=== PATIENT | male | born 1955 | race Caucasian/White ===

== ENCOUNTER 2022-08-26 14:27 | Observation (INO) | payer MEDICARE, SELFPAY ==
[2022-08-26] VITALS (18 sets, daily range): BP systolic 135–166; BP diastolic 91–107; PULSE 56–78; RESP 7–28; TEMP 36.5–36.9; O2SAT 87–100; BMI 28.7; BMI 29.8
--- NOTE | 2022-08-26 14:37 | XR_ITS ---
The [address] [address] Patient Name: TAMMY CORTEZ MRN: [id number] date: 1955 Sex: M Assigned Patient Location: ED.MAIN Current Patient Location: ER Accession/Order Number: [id number] Exam Date: 08/26/2022 15:05 Report Date: 08/26/2022 15:18 At the request of: MYRIAM OLSON Procedure: XR chest 1V EXAMINATION: XR chest 1V HISTORY: Altered mental status COMPARISON: 09/14/2021 TECHNIQUE: AP portable FINDINGS: LUNGS: No significant pulmonary parenchymal abnormalities. VASCULATURE: No increased pulmonary vasculature. PLEURA: No pneumothorax, effusion, or pleural thickening. CARDIAC: No cardiomegaly or cardiac silhouette abnormality. MEDIASTINUM: No visible mass or adenopathy. BONES: No fracture or visible bone lesion. OTHER: Negative. IMPRESSION: No acute cardiopulmonary process Electronically authenticated by: MIKALA PALACIOS Date: 08/26/2022 15:18
--- NOTE | 2022-08-26 14:37 | ECG_ITS ---
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
--- NOTE | 2022-08-26 14:37 | CT_ITS ---
The [address] [address] Patient Name: TAMMY CORTEZ MRN: [id number] date: 1955 Sex: M Assigned Patient Location: ER Current Patient Location: ER Accession/Order Number: [id number] Exam Date: 08/26/2022 14:40 Report Date: 08/26/2022 15:14 At the request of: MYRIAM OLSON Procedure: CT stroke head/brain wo con EXAM: CT stroke head/brain wo con HISTORY: Altered mental status COMPARISON: 09/14/2021 TECHNIQUE: Axial CT scans through the head were obtained without IV contrast administration. Dose reduction techniques were achieved by using: automated exposure control and/or adjustment of mA and /or kV according to patient size and/or use of iterative reconstruction technique. FINDINGS: There is no evidence of acute intracranial hemorrhage or abnormal extra-axial fluid collection. No mass effect or midline shift is seen. There is no evidence of large acute territorial infarction. There is no hydrocephalus. Moderate to severe enlargement of the ventricles and sulci, consistent with age appropriate cerebral atrophy,. Patchy areas of low-attenuation are present in supratentorial white matter, likely represents chronic microvascular ischemia, increased since 09/14/2021 To the limit of CT, the posterior fossa appears unremarkable. No definite acute fracture is identified. Soft tissues are unremarkable. The visualized orbits show no abnormal mass. The visualized paranasal sinuses show no air-fluid level. Mastoid air cells are clear. IMPRESSION: No CT evidence of acute intracranial abnormality. If there is sufficient clinical concern for acute brain parenchymal pathology, consider MRI for further evaluation. Chronic microvascular ischemia and involutional changes, mildly increased since 09/04/2021. Electronically authenticated by: YASMANY AKHTAR Date: 08/26/2022 15:14
--- NOTE | 2022-08-26 14:39 | CT_ITS ---
[address] [address] Patient Name: TAMMY CORTEZ MRN: [id number] date: 1955 Sex: M Assigned Patient Location: ER Current Patient Location: Accession/Order Number: [id number] Exam Date: 08/26/2022 14:45 Report Date: 08/26/2022 15:27 At the request of: MYRIAM OLSON Procedure: CT angio neck EXAMINATION: CT angio head, CT angio neck; [id number], [id number] COMPARISON: None. CLINICAL STATEMENT: CVA TECHNIQUE: Helical CT images of the head and neck were obtained after the administration of IV contrast. Multiplanar reformats and maximum intensity projection images were generated at the scanner. 3-D imaging was performed. Dose reduction technique used: Automated exposure control and/or adjustment of the mA and/or kV according to patient size and/or use of iterative reconstruction technique. Findings: CTA of the neck: Aortic arch: Conventional arch anatomy. No significant stenosis of the brachiocephalic artery, right or left subclavian arteries. Right common carotid artery: No significant stenosis. Right internal carotid artery: No significant plaque. No hemodynamically significant stenosis, with degree of narrowing in the <50% range. Left common carotid artery: The proximal aspect of the left common carotid artery is obscured by contrast related streak artifact. No significant stenosis in the visualized portions of the artery. Left internal carotid artery: No significant plaque. No hemodynamically significant stenosis, with degree of narrowing in the <50% range. Vertebral arteries: No hemodynamically significant stenosis. * Note: Measurements of stenoses were done in accordance with NASCET criteria. That is, the stenosis is calculated from the ratio of the linear luminal diameter of the narrowest segment of the diseased portion of the artery compared to the diameter of the artery beyond or distal to any post stenotic dilatation. CTA of the head ([place], COW): Right anterior circulation: Hypoplastic right A1 segment. Conventional branching anatomy into the anterior and middle cerebral arteries. No significant stenosis. No aneurysm. Left anterior circulation: Normal course and caliber of the right intracranial internal carotid artery. Conventional branching anatomy into the anterior and middle cerebral arteries. No significant stenosis. No aneurysm. Anterior communicating artery: Present. No aneurysm. Posterior communicating arteries: Bilateral origin to the posterior cerebral arteries. Posterior circulation: No significant stenosis. No aneurysm. Soft tissues of the neck: No acute abnormality. Mild mucosal thickening of bilateral maxillary sinuses. Visualized lung apices: Clear. Osseous: No acute findings. Impression: 1. No large vessel occlusion. 2. No significant stenosis of the cervical carotid or vertebral arteries. Electronically authenticated by: LILLIAM FINN Date: 08/26/2022 15:27
--- NOTE | 2022-08-26 14:39 | CT_ITS ---
[address] [address] Patient Name: TAMMY CORTEZ MRN: [id number] date: 1955 Sex: M Assigned Patient Location: ED.MAIN Current Patient Location: Accession/Order Number: [id number] Exam Date: 08/26/2022 14:45 Report Date: 08/26/2022 15:27 At the request of: MYRIAM OLSON Procedure: CT angio head EXAMINATION: CT angio head, CT angio neck; [id number], [id number] COMPARISON: None. CLINICAL STATEMENT: CVA TECHNIQUE: Helical CT images of the head and neck were obtained after the administration of IV contrast. Multiplanar reformats and maximum intensity projection images were generated at the scanner. 3-D imaging was performed. Dose reduction technique used: Automated exposure control and/or adjustment of the mA and/or kV according to patient size and/or use of iterative reconstruction technique. Findings: CTA of the neck: Aortic arch: Conventional arch anatomy. No significant stenosis of the brachiocephalic artery, right or left subclavian arteries. Right common carotid artery: No significant stenosis. Right internal carotid artery: No significant plaque. No hemodynamically significant stenosis, with degree of narrowing in the <50% range. Left common carotid artery: The proximal aspect of the left common carotid artery is obscured by contrast related streak artifact. No significant stenosis in the visualized portions of the artery. Left internal carotid artery: No significant plaque. No hemodynamically significant stenosis, with degree of narrowing in the <50% range. Vertebral arteries: No hemodynamically significant stenosis. * Note: Measurements of stenoses were done in accordance with NASCET criteria. That is, the stenosis is calculated from the ratio of the linear luminal diameter of the narrowest segment of the diseased portion of the artery compared to the diameter of the artery beyond or distal to any post stenotic dilatation. CTA of the head ([place], COW): Right anterior circulation: Hypoplastic right A1 segment. Conventional branching anatomy into the anterior and middle cerebral arteries. No significant stenosis. No aneurysm. Left anterior circulation: Normal course and caliber of the right intracranial internal carotid artery. Conventional branching anatomy into the anterior and middle cerebral arteries. No significant stenosis. No aneurysm. Anterior communicating artery: Present. No aneurysm. Posterior communicating arteries: Bilateral origin to the posterior cerebral arteries. Posterior circulation: No significant stenosis. No aneurysm. Soft tissues of the neck: No acute abnormality. Mild mucosal thickening of bilateral maxillary sinuses. Visualized lung apices: Clear. Osseous: No acute findings. Impression: 1. No large vessel occlusion. 2. No significant stenosis of the cervical carotid or vertebral arteries. Electronically authenticated by: LILLIAM FINN Date: 08/26/2022 15:27
--- NOTE | 2022-08-26 14:40 | ED.AMS1 ---
HPI - Altered Mental Status General Chief Complaint: Altered Mental Status Stated Complaint: GENERAL WEAKNESS/ SHORTNESS OF BREATH Time Seen by Provider: 08/26/22 14:37 Source: patient and family Mode of arrival: Wheelchair Limitations: altered mental status Limitations comment: history of dementia History of Present Illness HPI narrative: patient is a 67-year-old male with a history of Alzheimer's who presents to the emergency department with his for the evaluation of possible stroke. Immediately prior to arrival, within the last thirty minutes, the patient was waiting in a [employer] for a haircut when he reported to his that his tongue felt funny . Patient's states that she does believe the left corner of his mouth appears asymmetric. He was complaining of some discomfort to the left arm. On arrival to the emergency department, patient is alert and oriented to person only. Patient's states that he has been more confused in the last two days. He had no falls or injuries. When asked if he has pain, patient states that he does have pain in the legs, chest and he does not know if he has a headache. He has had no recent upper respiratory illness. He is on no blood thinners. Related Data Home Medications Medication Instructions Recorded Confirmed benazepril 5 mg tablet 5 mg PO DAILY 08/26/22 08/26/22 donepezil 10 mg tablet 10 mg PO DAILY 08/26/22 08/26/22 escitalopram oxalate 20 mg tablet 20 mg PO .QHS 08/26/22 08/26/22 folic acid 1 mg tablet 1 mg PO DAILY 08/26/22 08/26/22 memantine 10 mg tablet 10 mg PO BID 08/26/22 08/26/22 omeprazole 40 mg capsule,delayed 40 mg PO DAILY 08/26/22 08/26/22 release trospium 20 mg tablet 20 mg PO BID 08/26/22 08/26/22 Allergies Allergy/AdvReac Type Severity Reaction Status Date / Time No Known Drug Allergies Allergy Verified 08/26/22 14:32 Review of Systems ROS Constitutional Denies: fever or chills Ears, nose, mouth, and throat Denies: throat pain or neck pain Cardiovascular Reports: chest pain Respiratory Denies: shortness of breath or cough Gastrointestinal Denies: nausea or vomiting Genitourinary Denies: painful urination Musculoskeletal Denies: back pain Integumentary/Breast Denies: rash Neurological Reports: numbness in extremities; Denies: slurred speech Exam Narrative Exam Narrative: Gen.: Awake, alert, in no distress Head: Normocephalic, atraumatic ENT: Moist mucous membranes Respiratory: No respiratory distress, lungs clear bilaterally Cardio: Regular rate and rhythm Extremities: Moves extremities equally, no injuries noted Psych: Normal mood and affect Neuro: patient is alert and oriented to person only, left corner of the mouth is asymmetric and drooping, no significant dysarthria noted. No unilateral weakness noted. Skin: Warm, dry, intact Constitutional Vital Signs - 24 hr 08/26/22 14:32 08/26/22 14:33 08/26/22 14:33 Temperature 98.5 F Pulse Rate Pulse Rate [Monitor] 72 Respiratory Rate 28 H Blood Pressure 135/94 H Blood Pressure [Right Arm] 135/94 H Pulse Oximetry 99 87 L Oxygen Delivery Method Room Air 08/26/22 15:00 08/26/22 15:01 08/26/22 15:01 Temperature Pulse Rate 60 62 59 L Pulse Rate [Monitor] Respiratory Rate 7 L 18 21 Blood Pressure 158/98 H Blood Pressure [Right Arm] Pulse Oximetry 91 L 99 Oxygen Delivery Method 08/26/22 15:01 08/26/22 15:15 08/26/22 15:30 Temperature Pulse Rate 56 L 57 L 58 L Pulse Rate [Monitor] Respiratory Rate 14 12 12 Blood Pressure 158/98 H 148/98 H 152/101 H Blood Pressure [Right Arm] Pulse Oximetry 98 99 95 Oxygen Delivery Method 08/26/22 15:45 08/26/22 16:00 08/26/22 16:15 Temperature Pulse Rate 61 71 59 L Pulse Rate [Monitor] Respiratory Rate 15 13 14 Blood Pressure 143/100 H 146/101 H 140/91 H Blood Pressure [Right Arm] Pulse Oximetry 94 L 98 Oxygen Delivery Method 08/26/22 16:30 08/26/22 16:45 08/26/22 17:00 Temperature Pulse Rate 78 58 L 59 L Pulse Rate [Monitor] Respiratory Rate 17 16 19 Blood Pressure 156/101 H 153/98 H 166/106 H Blood Pressure [Right Arm] Pulse Oximetry Oxygen Delivery Method 08/26/22 17:15 Temperature Pulse Rate 56 L Pulse Rate [Monitor] Respiratory Rate 10 L Blood Pressure 155/107 H Blood Pressure [Right Arm] Pulse Oximetry Oxygen Delivery Method Course Vital Signs Vital signs: Vital Signs Temperature 98.5 F 08/26/22 14:32 Pulse Rate 72 08/26/22 14:32 Respiratory Rate 28 H 08/26/22 14:32 Blood Pressure 135/94 H 08/26/22 14:32 Pulse Oximetry 99 08/26/22 14:32 Oxygen Delivery Method Room Air 08/26/22 14:32 Temperature 98.5 F 08/26/22 14:32 Pulse Rate 56 L 08/26/22 17:15 Respiratory Rate 10 L 08/26/22 17:15 Blood Pressure 155/107 H 08/26/22 17:15 Pulse Oximetry 98 08/26/22 16:00 Oxygen Delivery Method Room Air 08/26/22 14:32 MDM - Altered Mental Status MDM Narrative Medical decision making narrative: on arrival to the emergency department, patient was found to be acutely confused and only able to follow some commands. He was sent for a stroke protocol CT of the brain as well as CT angio head and neck. lab studies, urine specimen are stable. Patient was evaluated by tele-stroke cart eye doctor Pablo for [facility] neurology. At this time the patient is not a TPA candidate and does not appear to be having an acute CVA. He recommended that the patient be admitted with neurology consult for evaluation of infectious versus metabolic reasons for altered mental status. Patient is resting much more comfortably on reevaluation, patient's and son are at bedside and they're in agreement with treatment plan for observation admission. Stable at this time, patient was accepted by Dr. Cannon for admission. Medical Records Attestation: I reviewed the patient's medical records. Lab Data Attestation: I reviewed the patient's lab results. Labs: Lab Results 08/26/22 08/26/22 Range/Units 14:45 17:05 WBC 5.7 (4.0-11.0) 10^3/uL RBC 4.97 (4.70-6.10) 10^6/uL Hgb 13.9 L (14.0-18.0) g/dL Hct 41.5 L (42.0-54.0) % MCV 83.5 (80.0-94.0) fL MCH 28.0 (25.9-34.0) pg MCHC 33.5 (29.9-35.2) g/dL RDW 13.4 (11.0-15.0) % Plt Count 241 (150-450) 10^3/uL MPV 8.4 L (9.5-13.5) fL Neut % (Auto) 67.6 (43.0-75.0) % Lymph % (Auto) 20.0 L (20.5-60.0) % Simpson % (Auto) 9.7 (1.7-12.0) % Eos % (Auto) 1.2 (0.9-7.0) % Baso % (Auto) 1.1 (0.2-2.0) % Neut # (Auto) 3.8 (1.4-6.5) 10^3/uL Lymph # (Auto) 1.1 L (1.2-3.8) 10^3/uL Simpson # (Auto) 0.6 (0.3-0.8) 10^3/uL Eos # (Auto) 0.1 (0.0-0.7) 10^3/uL Baso # (Auto) 0.1 (0.0-0.1) 10^3/uL Abs Immat Gran (auto) 0.02 (0.00-0.03) 10^3/uL Imm/Tot Granulo (auto) 0.4 (0.0-0.5) % PT 10.7 (9.0-11.6) sec INR 1.01 Sodium 134 L (136-145) mmol/L Potassium 3.8 (3.5-5.1) mmol/L Chloride 99 (98-107) mmol/L Carbon Dioxide 26.6 (21.0-32.0) mmol/L Anion Gap 12.2 BUN 16.0 (7.0-18.0) mg/dL Creatinine 1.16 (0.70-1.30) mg/dL Est GFR ( Amer) >60 (>=60) Est GFR (Non-Af Amer) >60 (>=60) BUN/Creatinine Ratio 13.8 Glucose 114 H (74-106) mg/dL Lactate 1.9 (0.4-2.0) mmol/L Calcium 8.8 (8.5-10.1) mg/dL Total Bilirubin 0.5 (0.2-1.0) mg/dL AST 19 (15-37) U/L ALT 24 (16-63) U/L Alkaline Phosphatase 96 (46-116) U/L Ammonia 14 (11-32) umol/L Troponin I High Sens <4.0 L (4.0-76.1) pg/mL Total Protein 7.2 (6.4-8.2) g/dL Albumin 3.8 (3.4-5.0) g/dL Globulin 3.4 g/dL Albumin/Globulin Ratio 1.1 TSH 1.581 (0.358-3.740) uIU/mL Urine Color Yellow (YELLOW) Urine Clarity Clear (CLEAR) Urine pH 7.0 (5.0-9.0) Ur Specific [place] <=1.005 A (1.005-1.025) Urine Protein Trace (NEG/TRACE) mg/dL Urine Glucose (UA) Negative (NEGATIVE) mg/dL Urine Ketones Negative (NEGATIVE) mg/dL Urine Occult Blood Negative (NEGATIVE) Urine Nitrite Negative (NEGATIVE) Urine Bilirubin Negative (NEGATIVE) Urine Urobilinogen 1.0 (0.2-1.0) EU/dL Ur Leukocyte Esterase Negative (NEGATIVE) Imaging Data Chest x-ray: Attestation: I have reviewed the pertinent imaging results. CT scan - head: Attestation: I have reviewed the pertinent imaging results. CT angio head/neck: Attestation: I have reviewed the pertinent imaging results. ECG Data Attestation: I personally reviewed and interpreted this ECG as follows: (sinus bradycardia at a rate of forty-eight, second-degree block with no acute ST elevation or ectopy. EKG reviewed by attending physician) ECG interpretation date: 08/26/22 ECG interpretation time: 17:28 Discharge Plan Discharge Chief Complaint: Altered Mental Status Clinical Impression: Dementia, Altered mental status Patient Disposition: Admitted as Observation Time of Disposition Decision: 17:37 Condition: Good Prescriptions / Home Meds: No Action benazepril 5 mg tablet 5 mg PO DAILY donepezil 10 mg tablet 10 mg PO DAILY escitalopram oxalate 20 mg tablet 20 mg PO .QHS folic acid 1 mg tablet 1 mg PO DAILY memantine 10 mg tablet 10 mg PO BID omeprazole 40 mg capsule,delayed release(DR/EC) 40 mg PO DAILY trospium 20 mg tablet 20 mg PO BID Stand Alone Forms: Portal Instructions Referrals: Mike Moreno DO [Primary Care Provider] - 1 week
[2022-08-26 15:01] LABS: Basophils Absolute Auto 0.1 10^3/uL (0.0-0.1); Basophils Percent Auto 1.1 % (0.2-2.0); Eosinophils Absolute Auto 0.1 10^3/uL (0.0-0.7); Eosinophils Percent Auto 1.2 % (0.9-7.0); Hematocrit 41.5 % (42.0-54.0); Hemoglobin 13.9 g/dL (14.0-18.0); Immature Granulocytes Abs Auto 0.02 10^3/uL (0.00-0.03); Immature Granulocytes Pct Auto 0.4 % (0.0-0.5); Lymphocytes Absolute Auto 1.1 10^3/uL (1.2-3.8); Mean Corpuscular HGB Conc 33.5 g/dL (29.9-35.2); Mean Corpuscular Volume 83.5 fL (80.0-94.0); Mean Platelet Volume 8.4 fL (9.5-13.5); Monocytes Absolute Auto 0.6 10^3/uL (0.3-0.8); Monocytes Percent Auto 9.7 % (1.7-12.0); Neutrophils Absolute Auto 3.8 10^3/uL (1.4-6.5); Neutrophils Percent Auto 67.6 % (43.0-75.0); Platelet Count 241 10^3/uL (150-450); Red Blood Count 4.97 10^6/uL (4.70-6.10); Red Cell Distribution Width 13.4 % (11.0-15.0); White Blood Count 5.7 10^3/uL (4.0-11.0)
[2022-08-26 15:21] LABS: INR 1.01; Prothrombin Time 10.7 sec (9.0-11.6)
[2022-08-26 15:23] LABS: Ammonia 14 umol/L (11-32)
[2022-08-26 15:30] LABS: Lactate/Lactic Acid 1.9 mmol/L (0.4-2.0)
[2022-08-26 15:39] LABS: Alanine Aminotransferase 24 U/L (16-63); Albumin Globulin Ratio 1.1; Albumin Level 3.8 g/dL (3.4-5.0); Alkaline Phosphatase 96 U/L (46-116); Anion Gap 12.2; Aspartate Amino Transferase 19 U/L (15-37); BUN Creatinine Ratio 13.8; Bilirubin Total 0.5 mg/dL (0.2-1.0); Calcium 8.8 mg/dL (8.5-10.1); Carbon Dioxide 26.6 mmol/L (21.0-32.0); Chloride 99 mmol/L (98-107); Estimated GFR (African America >60 (>=60); Estimated GFR (Non-African Ame >60 (>=60); Globulin 3.4 g/dL; Glucose 114 mg/dL (74-106); Potassium 3.8 mmol/L (3.5-5.1); Sodium 134 mmol/L (136-145); Total Protein 7.2 g/dL (6.4-8.2); Troponin I High Sensitivity <4.0 pg/mL (4.0-76.1)
[2022-08-26 15:40] LABS: Thyroid Stimulating Hormone 1.581 uIU/mL (0.358-3.740)
--- NOTE | 2022-08-26 16:06 | ECG_ITS ---
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
[2022-08-26 17:10] LABS: Bilirubin Urine NEGATIVE (NEGATIVE); Blood Urine NEGATIVE (NEGATIVE); Clarity Urine CLEAR (CLEAR); Color Urine YELLOW (YELLOW); Glucose Urine UA NEGATIVE (NEGATIVE); Ketones Urine NEGATIVE (NEGATIVE); Leukocyte Esterase Urine NEGATIVE (NEGATIVE); Nitrite Urine NEGATIVE (NEGATIVE); Protein Urine TRACE mg/dL (NEG/TRACE); Specific Gravity Urine <=1.005 (1.005-1.025)
[2022-08-26 17:15] LABS: Urine Microscopic Indicated NO
[2022-08-26] MEDS: LACTATED RINGER'S SOLUTION 1,000 ML 100 ML IV (18:42)
[2022-08-26] MEDS: ENOXAPARIN SODIUM 40 MG/0.4 ML SYRINGE SUBQ (20:24)
[2022-08-26] MEDS: MEMANTINE HCL 28 MG CAP XR PO (22:37)
[2022-08-27] VITALS (11 sets, daily range): BP systolic 132–136; BP diastolic 81–86; PULSE 52–59; RESP 18; TEMP 36.6; O2SAT 94–97; BMI 29.8
[2022-08-27] MEDS: LACTATED RINGER'S SOLUTION 1,000 ML 100 ML IV (04:10)
[2022-08-27] MEDS: OMEPRAZOLE 40 MG CAPSULE.DR (05:11)
[2022-08-27] MEDS: ESCITALOPRAM 10 MG TABLET 20 MG PO (10:34)
[2022-08-27] MEDS: FOLIC ACID 1 MG TABLET PO (10:34)
[2022-08-27] MEDS: OMEPRAZOLE 40 MG CAPSULE.DR PO (10:34)
[2022-08-27] MEDS: LISINOPRIL 5 MG TABLET PO (10:34)
--- NOTE | 2022-08-27 11:26 | SWNOTE1 ---
ABNER met with pt and in room. Pt lives at home with his , she is the primary caregiver. Pt does have Alzheimer's. Pt is able to answer most questions during assessment. Pt is independent at home and does not use any DME. ABNER spoke with pt and about home health coming in for a period of time. ABNER did explain what home health services are. ABNER gave pt's medicare.gov star rating list for home health companies. She did state he is doing well walking around and she is not sure if they want home health at this time. ABNER to come back within an hour while they discuss.
--- NOTE | 2022-08-27 12:05 | CM.NOTE ---
Rounds made with Dr. Cannon, PT and OT will evaluate pt today and will follow for discharge needs.
--- NOTE | 2022-08-27 12:19 | SWNOTE1 ---
Pt and have decided they do not want HH at this time, she will reach out to PCP if needed.
--- NOTE | 2022-08-27 16:22 | P.HP_ITS ---
H&P: HPI History of Present Illness Chief complaint: Change in mental status Narrative: HPI and hospital course: 67 y o male with severe dementia was brought in by his for worsening confusion, incomprehensible speech for possible stroke vs metabolic encephalopathy. Patient told his that his tongue felt funny and thought there was facial asymmetry at that time. Patient was evaluated in ED by tele stroke and recommended evaluation for metabolic encephalopathy after negative initial stroke w/u. When I evaluated him today, in his 's presence, he appeared to be at his baseline. His w/u included CTH, CTA head/neck, UA, CXR, CBC, CMP with no sig abnormality/reversible pathology noted. He was admitted overnight for observation with return to usual baseline status on evaluation today. Admission Diagnosis Stroke like symptoms Change in mental status Dementia HTN Depression Discharge diagnosis as above Discharge status: stable D/c home with Home health evaluation. Patient to follow Neurology as outpatient Review of Systems ROS Status of ROS 10 or more systems reviewed and unremarkable except as noted in history and below [facility] History Family History Mother Family history of CHF (congestive heart failure) Father Family history of cancer Other Family history of COPD (chronic obstructive pulmonary disease) Family history of myocardial infarction Social History (Updated 08/27/22 @ 16:28 by Shaikh Davis MD) Within the past year, how often did you have a drink containing alcohol: never Score interpretation: A score less than 4 is consistent with normal alcohol consumption. Smoking status: Former smoker Non-prescribed substance use: denies use Do you think of yourself as: straight/heterosexual Gender Identity: male Meds Home Medications and Allergies Home Medications Medication Instructions Recorded Confirmed Type benazepril 5 mg tablet 5 mg PO DAILY 08/26/22 08/26/22 History donepezil 10 mg tablet 10 mg PO DAILY 08/26/22 08/26/22 History escitalopram oxalate 20 mg tablet 20 mg PO .QHS 08/26/22 08/26/22 History folic acid 1 mg tablet 1 mg PO DAILY 08/26/22 08/26/22 History memantine 10 mg tablet 10 mg PO BID 08/26/22 08/26/22 History omeprazole 40 mg capsule,delayed 40 mg PO DAILY 08/26/22 08/26/22 History release trospium 20 mg tablet 20 mg PO BID 08/26/22 08/26/22 History Allergies Allergy/AdvReac Type Severity Reaction Status Date / Time No Known Drug Allergies Allergy Verified 08/26/22 14:32 Exam Constitutional Vital Signs - 24 hr 08/26/22 16:30 08/26/22 16:45 08/26/22 17:00 Temperature Pulse Rate 78 58 L 59 L Respiratory Rate 17 16 19 Blood Pressure 156/101 H 153/98 H 166/106 H Blood Pressure [Right Arm] Pulse Oximetry Oxygen Delivery Method 08/26/22 17:15 08/26/22 18:19 08/26/22 20:00 Temperature 97.7 F Pulse Rate 56 L 58 L 62 Respiratory Rate 10 L 20 Blood Pressure 155/107 H Blood Pressure [Right Arm] 151/94 H Pulse Oximetry 98 Oxygen Delivery Method Room Air 08/26/22 20:31 08/26/22 20:38 08/26/22 22:00 Temperature 97.7 F Pulse Rate 66 Respiratory Rate 18 Blood Pressure Blood Pressure [Right Arm] 160/94 H Pulse Oximetry 96 100 Oxygen Delivery Method Room Air 08/27/22 00:00 08/27/22 02:00 08/27/22 04:00 Temperature Pulse Rate 55 L 55 L 55 L Respiratory Rate Blood Pressure Blood Pressure [Right Arm] Pulse Oximetry Oxygen Delivery Method 08/27/22 04:55 08/27/22 06:00 08/27/22 08:01 Temperature 97.9 F Pulse Rate 53 L 52 L Respiratory Rate 18 Blood Pressure Blood Pressure [Right Arm] 132/81 H Pulse Oximetry 94 L Oxygen Delivery Method Room Air 08/27/22 09:57 08/27/22 11:14 08/27/22 12:03 Temperature Pulse Rate 57 L 59 L Respiratory Rate Blood Pressure Blood Pressure [Right Arm] Pulse Oximetry 94 L Oxygen Delivery Method Room Air 08/27/22 13:52 08/27/22 14:00 Temperature 97.9 F Pulse Rate 56 L 52 L Respiratory Rate 18 Blood Pressure Blood Pressure [Right Arm] 136/86 H Pulse Oximetry 97 Oxygen Delivery Method Room Air Documenting provider has reviewed patient's vital signs: yes Common normals: no apparent distress and well nourished General appearance: cooperative and comfortable [facility] Common normals: normocephalic and head/scalp atraumatic Eye Common normals: PERRL, EOMs intact bilaterally, conjunctivae normal and no scleral icterus Respiratory Common normals: normal respiratory effort, no retractions, no use of accessory muscles and clear to auscultation bilaterally Cardio Common normals: no JVD, regular rate, regular rhythm, S1 normal heart sound, S2 normal heart sound and no murmurs GI Common normals: Normal to inspection, nondistended, normoactive bowel sounds present, soft to palpation, non-tender and no hepatosplenomegaly Extremity Common normals: normal to inspection and full ROM Neuro Common normals: moves all extremities, no focal motor deficits and no sensory deficits noted Sensorium/orientation: awake Meningeal signs: no meningeal signs Speech: abnormal speech Gait (neuro): normal gait Psych Common normals: cooperative Attitude: calm Speech: incoherent Mood and affect: euthymic mood Thought process: confused and confabulating Memory/cognition: memory grossly impaired and cognition grossly impaired Insight: poor Judgement: poor Results Labs Labs: Urine 08/26/22 Range/Units 17:05 Urine Color Yellow (YELLOW) Urine Clarity Clear (CLEAR) Urine pH 7.0 (5.0-9.0) Ur Specific [place] <=1.005 A (1.005-1.025) Urine Protein Trace (NEG/TRACE) mg/dL Urine Glucose (UA) Negative (NEGATIVE) mg/dL Assessment and Plan Assessment and Plan (1) Dementia: Assessment and Plan: Severe dementia and currently more or less dependent on his for everything. Lives at home. Follows Neurology at [facility]. on donezepil and memantine. Qualifiers: Dementia type: Alzheimer's Alzheimer's disease onset: early onset Dementia severity: severe Dementia behavioral or psychological symptom: without behavioral, psychotic, or mood disturbance or anxiety Qualified Code(s): G30.0 - Alzheimer's disease with early onset; F02.C0 - Dementia in other diseases classified elsewhere, severe, without behavioral disturbance, psychotic disturbance, mood disturbance, and anxiety (2) Altered mental status: Assessment and Plan: Possible concern for CVA- Stroke w/u included CTH, CTA head/neck with no sig abnormality noted. Tele stroke recommended evaluation for alternative explanation of his symptoms. He is back to his baseline today. no reversible metabolic/infectious etiology noted on w/u Suspect worsening dementia with periods of worsening confusion intermittently Qualifiers: Altered mental status type: disorientation Qualified Code(s): R41.0 - Disorientation, unspecified (3) GERD (gastroesophageal reflux disease): Assessment and Plan: c/w PPI (4) Hypertension: Assessment and Plan: c/w home meds
--- NOTE | 2022-09-02 10:10 | CM.DCFOLLOWU ---
Person spoke with:patient's How are you feeling? well How is your pain? no pain Did you understand your discharge instructions? yes Do you have any questions about your discharge instructions? no Were you given any prescriptions at discharge? no Were you able to get your prescriptions filled? no Do you understand how to take your medications as ordered? yes Do you have any questions about your follow up appointment and do you plan to keep your follow up appointment? no questions, follow up with Dr. Moreno tomorrow 09/03/22 Is there anything else that you would like to discuss?no Questions/Comments/Concerns/Other:
== END 2022-08-27 14:41 | disposition home or self-care (01) ==
LOC: ER 17:37 → MS 18:10
PROVIDERS: Physician Assistant; Admitting Provider Internal Medicine; Emergency Provider Emergency Medicine; PCP Internal Medicine; Visit Provider Internal Medicine
DX: R41.82 Altered mental status, unspecified (principal); G30.0 Alzheimer's disease with early onset; F02.C0 Dementia in other diseases classified elsewhere, severe, without behavioral disturbance, psychotic disturbance, mood disturbance, and anxiety; I10 Essential (primary) hypertension; F32.A Depression, unspecified; K21.9 Gastro-esophageal reflux disease without esophagitis; Z87.891 Personal history of nicotine dependence; Z79.899 Other long term (current) drug therapy; M79.605 Pain in left leg; M79.604 Pain in right leg
CPT/HCPCS: 36415; 70450; 70496; 70498; 71045; 80053; 81003; 82140; 83605; 84443; 84484; 85025; 85610; 93005; 94761; 96360; 96361; 96372; 99285; G0378; Q9967

== ENCOUNTER 2022-11-24 13:11 | Outpatient (OUT) | payer MEDICARE, SELFPAY ==
[2022-11-24 16:08] LABS: Prostate Specific Antigen Dx 0.35 ng/mL (<=4.00)
== END 2022-11-24 13:12 | disposition home or self-care (01) ==
LOC: LAB 13:11
PROVIDERS: PCP Internal Medicine; Visit Provider Urology
DX: C61 Malignant neoplasm of prostate (principal); N40.1 Benign prostatic hyperplasia with lower urinary tract symptoms
CPT/HCPCS: 36415; 84153

== ENCOUNTER 2022-12-17 11:56 | Emergency (ER) | payer MEDICARE, SELFPAY ==
[2022-12-17 12:00] VITALS: BP 145/86; PULSE 56; RESP 18; TEMP 36.7; O2SAT 98; BMI 26.9
--- NOTE | 2022-12-17 12:09 | ECG_ITS ---
The [facility] Test Date: 2022-12-17 Pat Name: TAMMY CORTEZ Department: Room: - Gender: Male [employer] Super[employer]: : 1955 Requested By: [id number] Order Number: [id number] Reading MD: BECKA FAY Measurements Intervals [place] Rate: 52 P: 19 CT: 180 QRS: -7 QRSD: 96 T: 62 QT: 464 QTc: 443 Interpretive Statements 1100 Sinus rhythm 9110 normal ECG Compared to ECG 12/17/2022 12:05:52 No significant changes Electronically Signed On 12-19-2022 16:50:03 EDT by BECKA FAY
--- NOTE | 2022-12-17 12:11 | ED_ITS ---
HPI - General Adult General Chief complaint: Neuro Symptoms/Deficit Stated complaint: dizziness/confusion/ general weakness Time Seen by Provider: 12/17/22 12:08 Source: patient Mode of arrival: Wheelchair Limitations: no limitations History of Present Illness HPI narrative: Patient is a 59-year-old male who is presenting to the Emergency Room with chief concern of a headache, slightly garbled speech and cough/difficulty breathing that was very transient at home. Patient has declining Alzheimer's disease. Patient is at a stage per history, and she states that 7 is the worse. Patient has been having steady cognitive decline secondary to Alzheimer's in the past 6 months. Patient normally has expressive aphasia at baseline for the past 6-7 months. Patient was having head throbbing at home, and headache that is concerned about. Patient is at his normal baseline at this time. He currently has no headache, no new expressive aphasia. Patient has no chest pain, shortness of breath, or no other acute stroke symptoms. Patient initially checked into triage, there was a concern for garbled speech, expressive aphasia, and stroke protocols were started initially. After CTs were performed, it was noted by that their chief concern was headache, facial pressure, and slightly garbled speech/cough for a known reason but that resolved. Patient has a outpatient MRI scheduled for 1:30 PM this afternoon dose schedule from his neurologist to reassess brain/Alzheimer's. Patient is very comfortable, hemodynamically stable, blood sugar within normal limits. . All systems are negative except as noted/marked. All systems reviewed and otherwise negative. . Nurses note and vital signs reviewed and patient is not hypoxic. General: The patient appears well and in no apparent distress. Patient is resting comfortably on cart. Patient is not toxic, lethargic, or listless Skin: Warm, dry, no pallor noted. There is no rash noted. No petechiae, purpura. Head: Normocephalic, atraumatic Eye: Normal conjunctiva, no drainage, EOMI. PERRL Ears, Nose, Mouth, and Throat: oral mucosa is moist. Nares patent. Mouth without vesicles. Cardiovascular: Regular Rate and Rhythm, no murmur, gallop, rub Respiratory: Patient is in no distress, no accessory muscle use, lungs are clear to auscultation, no wheezing, rales or rhonchi Back: non-tender, no CVA tenderness bilaterally to percussion. No CT LS midline pain GI: soft, no tenderness to palpation, no masses appreciated. No rebound, guarding, or rigidity noted. No flank pain bilateral, No distention Musculoskeletal: Patient has full range of motion of all of the extremities, no motor, sensory, or focal neurological deficits Neurological: A&O x3, normal speech; NIH 0, Patient is at his current baseline for his multiple neurological changes secondary to Alzheimer's, but no acute findings on today's neurological assessments per . Patient has normal expressive aphasia the past 6-7 months, it is not worse today. Psychiatric: Cooperative Related Data Home Medications Medication Instructions Recorded Confirmed benazepril 5 mg tablet 5 mg PO DAILY 08/26/22 12/17/22 donepezil 10 mg tablet 10 mg PO DAILY 08/26/22 12/17/22 escitalopram oxalate 20 mg tablet 20 mg PO .QHS 08/26/22 12/17/22 folic acid 1 mg tablet 1 mg PO DAILY 08/26/22 12/17/22 memantine 10 mg tablet 10 mg PO BID 08/26/22 12/17/22 omeprazole 40 mg capsule,delayed 40 mg PO DAILY 08/26/22 12/17/22 release trospium 20 mg tablet 20 mg PO BID 08/26/22 12/17/22 lorazepam 0.5 mg tablet 0.5 mg PO BID PRN agitation 12/17/22 12/17/22 Allergies Allergy/AdvReac Type Severity Reaction Status Date / Time No Known Drug Allergies Allergy Verified 12/17/22 12:17 [facility] Medical History Family History Mother Family history of CHF (congestive heart failure) Father Family history of cancer Other Family history of COPD (chronic obstructive pulmonary disease) Family history of myocardial infarction Social History (Updated 08/27/22 @ 16:28 by Shaikh Davis MD) Within the past year, how often did you have a drink containing alcohol: never Score interpretation: A score less than 4 is consistent with normal alcohol consumption. Smoking status: Former smoker Non-prescribed substance use: denies use Do you think of yourself as: straight/heterosexual Gender Identity: male Exam Constitutional Vital Signs, click to edit/add: Last Vital Signs Temp 98.1 F 12/17/22 12:00 Pulse 60 12/17/22 12:33 Resp 20 12/17/22 12:33 BP 128/84 12/17/22 12:33 Pulse Ox 98 12/17/22 12:33 O2 Del Method Room Air 12/17/22 12:33 Course Vital Signs Vital signs: Vital Signs Temperature 98.1 F 12/17/22 12:00 Pulse Rate 56 L 12/17/22 12:00 Respiratory Rate 18 12/17/22 12:00 Blood Pressure 145/86 H 12/17/22 12:00 Pulse Oximetry 98 12/17/22 12:00 Oxygen Delivery Method Room Air 12/17/22 12:00 Temperature 98.1 F 12/17/22 12:00 Pulse Rate 60 12/17/22 12:33 Respiratory Rate 20 12/17/22 12:33 Blood Pressure 128/84 12/17/22 12:33 Pulse Oximetry 98 12/17/22 12:33 Oxygen Delivery Method Room Air 12/17/22 12:33 Medical Decision Making MDM Narrative Medical decision making narrative: EKG interpretation. Normal sinus rhythm at 52 beats a minute. Left axis deviation. No acute ST elevation, no acute ectopy. QTC of 443. Patient was given IV fluids, patient seen more perky and responsive per . Patient is able to have his MRI of the brain is ordered as an outpatient at 1:30 today. No acute findings and patient CT or lab work. Patient will follow-up with PCP. Son and are at bedside at this physician. They feel very comfortable taking patient home and having him performs outpatient MRI. Everybody appears to be very realistic unfortunately at the declined the patient is occurring with his Alzheimer's, no acute concerns today otherwise. Lab Data Lab results reviewed: Yes I reviewed the patient's lab results Labs: Lab Results 12/17/22 12/17/22 Range/Units 12:25 12:31 WBC 4.4 (4.0-11.0) 10^3/uL RBC 4.97 (4.70-6.10) 10^6/uL Hgb 14.2 (14.0-18.0) g/dL Hct 42.2 (42.0-54.0) % MCV 84.9 (80.0-94.0) fL MCH 28.6 (25.9-34.0) pg MCHC 33.6 (29.9-35.2) g/dL RDW 13.2 (11.0-15.0) % Plt Count 205 (150-450) 10^3/uL MPV 8.3 L (9.5-13.5) fL Neut % (Auto) 74.1 (43.0-75.0) % Lymph % (Auto) 15.7 L (20.5-60.0) % [place] % (Auto) 7.5 (1.7-12.0) % Eos % (Auto) 1.4 (0.9-7.0) % Baso % (Auto) 1.1 (0.2-2.0) % Neut # (Auto) 3.3 (1.4-6.5) 10^3/uL Lymph # (Auto) 0.7 L (1.2-3.8) 10^3/uL [place] # (Auto) 0.3 (0.3-0.8) 10^3/uL Eos # (Auto) 0.1 (0.0-0.7) 10^3/uL Baso # (Auto) 0.1 (0.0-0.1) 10^3/uL Abs Immat Gran (auto) 0.01 (0.00-0.03) 10^3/uL Imm/Tot Granulo (auto) 0.2 (0.0-0.5) % PT 10.9 (9.0-11.6) sec INR 1.03 APTT 32.2 (22.3-36.2) sec Sodium 133 L (136-145) mmol/L Potassium 4.0 (3.5-5.1) mmol/L Chloride 98 (98-107) mmol/L Carbon Dioxide 28.9 (21.0-32.0) mmol/L Anion Gap 10.1 BUN 11.0 (7.0-18.0) mg/dL Creatinine 1.00 (0.70-1.30) mg/dL Est GFR ( Amer) >60 (>=60) Est GFR (Non-Af Amer) >60 (>=60) BUN/Creatinine Ratio 11.0 Glucose 85 (74-106) mg/dL Calcium 8.7 (8.5-10.1) mg/dL Total Bilirubin 0.7 (0.2-1.0) mg/dL AST 16 (15-37) U/L ALT 21 (16-63) U/L Alkaline Phosphatase 74 (46-116) U/L Troponin I High Sens 6.5 (4.0-76.1) pg/mL Total Protein 7.0 (6.4-8.2) g/dL Albumin 3.7 (3.4-5.0) g/dL Globulin 3.3 g/dL Albumin/Globulin Ratio 1.1 POC Glucose 83 (74-106) mg/dL ECG Data Attestation: I personally reviewed and interpreted this ECG as follows: Discharge Plan Discharge Chief Complaint: Neuro Symptoms/Deficit Clinical Impression: Dyspnea, Headache Patient Disposition: Home, Self-Care Prescriptions / Home Meds: No Action benazepril 5 mg tablet 5 mg PO DAILY donepezil 10 mg tablet 10 mg PO DAILY escitalopram oxalate 20 mg tablet 20 mg PO .QHS folic acid 1 mg tablet 1 mg PO DAILY memantine 10 mg tablet 10 mg PO BID omeprazole 40 mg capsule,delayed release(DR/EC) 40 mg PO DAILY trospium 20 mg tablet 20 mg PO BID lorazepam 0.5 mg tablet 0.5 mg PO BID PRN (Reason: agitation) Instructions: Dyspnea (ED), General Headache (ED) Additional Instructions: Increase fluids at home. You may have your MRI today as scheduled. Continue to follow-up with neurologist and also your Alzheimer's. Stand Alone Forms: Portal Instructions Referrals: Mike Moreno DO [Primary Care Provider] - 1 week Discharge Date/Time: 12/17/22 13:40
--- NOTE | 2022-12-17 12:20 | CT_ITS ---
[address] [address] Patient Name: TAMMY CORTEZ MRN: [id number] date: 1955 Sex: M Assigned Patient Location: ER Current Patient Location: ED.MAIN Accession/Order Number: [id number] Exam Date: 12/17/2022 12:10 Report Date: 12/17/2022 12:30 At the request of: TOMMY RAIN Procedure: CT stroke head/brain wo con CT stroke head/brain wo con, 12/17/2022 12:10 PM EDT INDICATION: CVA symptoms COMPARISON: Noncontrast CT of the head 08/26/2022 TECHNIQUE: Axial CT images of the brain from skull base to vertex, including portions of the face and sinuses, were obtained without contrast. Multiplanar reformatted images were generated and reviewed as needed. FINDINGS: Global cortical atrophy with ventricular prominence. Periventricular and deep white matter hypoattenuation. King-white matter differentiation is preserved. No extra-axial collection. No intracranial mass, hydrocephalus, midline shift or acute hemorrhage. The paranasal sinuses and mastoid air cells are clear. Orbits are within normal limits. No acute skull fracture. CT/CT stroke head/brain wo con IMPRESSION: No acute intracranial abnormality. Electronically authenticated by: JENNIFER CANTRELL Date: 12/17/2022 12:30
--- NOTE | 2022-12-17 12:20 | XR_ITS ---
The [address] [address] Patient Name: TAMMY CORTEZ MRN: [id number] date: 1955 Sex: M Assigned Patient Location: MRI Current Patient Location: ER Accession/Order Number: [id number] Exam Date: 12/17/2022 12:10 Report Date: 12/17/2022 12:36 At the request of: TOMMY RAIN Procedure: XR chest 1V EXAM: XR chest 1V at 1216 hours HISTORY: cva , confusion. COMPARISON: 08/26/2022 TECHNIQUE: AP upright portable chest x-ray FINDINGS: The heart is not enlarged and the vasculature is not distended. No acute infiltrate, effusion or pneumothorax is identified. Slight scoliosis spine is noted. XR/XR chest 1V IMPRESSION: No acute infiltrate or evidence of cardiac decompensation. The overall appearance of the chest is essentially unchanged. Electronically authenticated by: RALEIGH VALIENTE Date: 12/17/2022 12:36
[2022-12-17 12:33] VITALS: BP 128/84; PULSE 60; RESP 20; O2SAT 98
[2022-12-17 12:36] LABS: Basophils Absolute Auto 0.1 10^3/uL (0.0-0.1); Basophils Percent Auto 1.1 % (0.2-2.0); Eosinophils Absolute Auto 0.1 10^3/uL (0.0-0.7); Eosinophils Percent Auto 1.4 % (0.9-7.0); Hematocrit 42.2 % (42.0-54.0); Hemoglobin 14.2 g/dL (14.0-18.0); Immature Granulocytes Abs Auto 0.01 10^3/uL (0.00-0.03); Immature Granulocytes Pct Auto 0.2 % (0.0-0.5); Lymphocytes Absolute Auto 0.7 10^3/uL (1.2-3.8); Lymphocytes Percent Auto 15.7 % (20.5-60.0); Mean Corpuscular HGB Conc 33.6 g/dL (29.9-35.2); Mean Corpuscular Hemoglobin 28.6 pg (25.9-34.0); Mean Corpuscular Volume 84.9 fL (80.0-94.0); Mean Platelet Volume 8.3 fL (9.5-13.5); Monocytes Absolute Auto 0.3 10^3/uL (0.3-0.8); Monocytes Percent Auto 7.5 % (1.7-12.0); Neutrophils Absolute Auto 3.3 10^3/uL (1.4-6.5); Neutrophils Percent Auto 74.1 % (43.0-75.0); Platelet Count 205 10^3/uL (150-450); Red Blood Count 4.97 10^6/uL (4.70-6.10); Red Cell Distribution Width 13.2 % (11.0-15.0); White Blood Count 4.4 10^3/uL (4.0-11.0)
[2022-12-17 12:38] LABS: Glucometer 83 mg/dL (74-106)
[2022-12-17] MEDS: 0.9 % SODIUM CHLORIDE 1,000 ML 1000 ML IV (12:47)
[2022-12-17 12:53] LABS: INR 1.03; Partial Thromboplastin Time 32.2 sec (22.3-36.2); Prothrombin Time 10.9 sec (9.0-11.6)
[2022-12-17 12:55] LABS: Alanine Aminotransferase 21 U/L (16-63); Albumin Globulin Ratio 1.1; Albumin Level 3.7 g/dL (3.4-5.0); Alkaline Phosphatase 74 U/L (46-116); Anion Gap 10.1; Aspartate Amino Transferase 16 U/L (15-37); Bilirubin Total 0.7 mg/dL (0.2-1.0); Calcium 8.7 mg/dL (8.5-10.1); Carbon Dioxide 28.9 mmol/L (21.0-32.0); Chloride 98 mmol/L (98-107); Estimated GFR (African America >60 (>=60); Estimated GFR (Non-African Ame >60 (>=60); Globulin 3.3 g/dL; Glucose 85 mg/dL (74-106); Sodium 133 mmol/L (136-145); Troponin I High Sensitivity 6.5 pg/mL (4.0-76.1)
== END 2022-12-17 13:40 | disposition home or self-care (01) ==
PROVIDERS: Emergency Provider Emergency Medicine; PCP Internal Medicine
DX: R51.9 Headache, unspecified (principal); R06.00 Dyspnea, unspecified; G45.9 Transient cerebral ischemic attack, unspecified; G30.9 Alzheimer's disease, unspecified; F02.80 Dementia in other diseases classified elsewhere, unspecified severity, without behavioral disturbance, psychotic disturbance, mood disturbance, and anxiety; Z79.899 Other long term (current) drug therapy; Z87.891 Personal history of nicotine dependence
CPT/HCPCS: 36415; 70450; 70551; 71045; 80053; 84484; 85025; 85610; 85730; 93005; 99285

== ENCOUNTER 2022-12-17 13:47 | Outpatient (OUT) | payer MEDICARE, SELFPAY ==
--- NOTE | 2022-12-17 | MR_ITS ---
[address] [address] Patient Name: TAMMY CORTEZ MRN: [facility]:[id number] date: 1955 Sex: M Assigned Patient Location: MRI Current Patient Location: MRI Accession/Order Number: [id number] Exam Date: 12/17/2022 14:00 Report Date: 12/17/2022 16:24 At the request of: NON-STAFF PHYSICIAN Procedure: MR head/brain wo con EXAM: MR head/brain wo con HISTORY: transient cerebral ischemia G45.9 COMPARISON: CT brain 12/17/2022, 08/26/2022 TECHNIQUE: MRI of the brain was performed without contrast. FINDINGS: There is no restricted diffusion to suggest acute infarct. There is no midline shift, mass effect, or abnormal extraaxial fluid collections. Enlarged cortical sulci and ventricular system, consistent with global cerebral atrophy. There are confluent T2/FLAIR signal abnormality in the posterior periventricular white matter, likely reflect chronic microvascular ischemic changes. The major intracranial flow voids are visualized. The cerebellar tonsils are normal in position. The orbits are unremarkable. The paranasal sinuses are essentially clear. The mastoid air cells are clear. MR/MR head/brain wo con IMPRESSION: No acute intracranial abnormality. Diffuse cerebral atrophy. Mild chronic microvascular ischemia. Electronically authenticated by: YASMANY AKHTAR Date: 12/17/2022 16:24
== END 2022-12-17 13:48 | disposition home or self-care (01) ==
LOC: MRI 13:47
PROVIDERS: PCP Internal Medicine
DX: G45.9 Transient cerebral ischemic attack, unspecified (principal)
CPT/HCPCS: 70551

== ENCOUNTER 2023-02-07 11:18 | Outpatient (OUT) | payer MEDICARE, SELFPAY ==
[2023-02-07 13:19] LABS: Prostate Specific Antigen Dx 0.22 ng/mL (<=4.00)
== END 2023-02-07 11:19 | disposition home or self-care (01) ==
LOC: LAB 11:19
PROVIDERS: PCP Internal Medicine; Visit Provider Radiology Radiation Oncology
DX: C61 Malignant neoplasm of prostate (principal)
CPT/HCPCS: 36415; 84153

== ENCOUNTER 2023-04-02 06:50 | Emergency (ER) | payer MEDICARE, SELFPAY ==
[2023-04-02] VITALS (31 sets, daily range): BP systolic 132–170; BP diastolic 79–96; PULSE 51–76; RESP 10–28; TEMP 36.4; O2SAT 85–100; BMI 25.8
--- OUTSIDE RECORDS SUMMARY | 2023-04-02 06:56 | XMS_ITS | CCD ---
Author Name Unknown Address [address] [place] [address] Organization [facility] Care Team Providers Care Skoog Operator Name Role Phone MIKE FAY Primary Care Physician [phone] Nya BRAUN, Mike Draper Primary Care Provider Mike Fay DO Primary Care Provider Nya DOMike Primary Care Provider Mike Fay RODRÍGUEZ ., DR FUNEZ Admitting Unavailable RODRÍGUEZ ., DR FUNEZ Consulting Unavailable RODRÍGUEZ ., DR FUNEZ Attending Unavailable BALL, DR JOVEL Primary Care Unavailable GRILLIS ., DR BRIELLE Draper Admitting Unavaila ble BALL, DR JOVEL Primary Care Unavailable GRILLIS ., DR BRIELLE Draper Consulting Unavaila ble GRILLIS ., DR BRIELLE Draper Attending Unavaila ble ELIZABETH II, DANE Consulting Unavailable FILUTZEBRENDENROBERT Consulting Unavailable RODRÍGUEZ ., DR FUNEZ Admitting Unavailable RODRÍGUEZ ., DR FUNEZ Consulting Unavailable RODRÍGUEZ ., DR FUNEZ Attending Unavailable BALL, DR JOVEL Primary Care Unavailable NYA, DR JOVEL Consulting Unavailable NYA, DR JOVEL Attending Unavailable NYA, DR JOVEL Admitting Unavailable NYA, DR JOVEL Primary Care Unavailable ENGELEJune, DR TRINA Nolan Attending Unavailable MARTHA, DR TRINA Nolan Admitting Unavailable NYA, DR JOVEL Primary Care Unavailable MARTHA, DR TRINA Nolan Consulting Unavailable MARTHA, DR TRINA Nolan Consulting Unavailable MARTHA, DR TRINA Nolan Attending Unavailable MARTHA, DR TRINA Nolan Admitting Unavailable NYA, DR JOVEL Primary Care Unavailable PAY ., DR SANDERS Attending Unavailable PAY ., DR SANDERS Admitting Unavailable ZIEBER, DR JOSÉ Watkins Consulting Unavailable NYA, DR JOVEL Primary Care Unavailable PAY ., DR SANDERS Consulting Unavailable LUCIANA, KEVIN Consulting Unavailable Joann THOMAS Attending Unavailable Joann THOMAS Referring Unavailable MIKE FAY Primary Care Unavailable COBY HECTOREW Attending Unavailable WILLA, JUDIT Referring Unavailable MIKE FAY Primary Care Unavailable NikitaZACK, JUDIT Attending Unavailable WILLA, JUDIT Referring Unavailable MIKE FAY Primary Care Unavailable ANIKETJAYLENEAshlyn, JUDIT Attending Unavailable ANIKETALEX, JUDIT Referring Unavailable MIKE FAY Primary Care Unavailable Armin RODRÍGUEZ Attending Unavailable Armin RODRÍGUEZ Attending Unavailable Armin RODRÍGUEZ Attending Unavailable Armin RODRÍGUEZ Attending Unavailable Allergies Allergy Classification Reported Allergen(s) Allergy Type Date of Onset Reaction(s) Facility (1 source) Seasonal allergy; Translations: [SEASONAL ALLERGIES] Propensity to adverse reactions (disorder) 7 [facility] Repository Medications Current Medications Medication Drug Class(es) Dates Sig (Normalized) Sig (Original) Aspir 81 (5 sources) Start: 12-24-2019 take 1 mg by mouth once daily Aspir 81 mg, Oral, Daily, Refills(s) 0 Start Date: 12/24/19 Status: Ordered Lomotil (5 sources) Anticholinergic, Cholinergic Muscarinic Antagonist, Antidiarrheal Start: 06-13-2020 Lomotil Oral, QID, Refill(s) 0 Start Date: 06/13/20 Status: Ordered benazepril hydrochloride 5 mg oral tablet (20 sources) Angiotensin Converting Enzyme Inhibitor Start: 12-24-2019 take 1 mg by mouth once daily benazepril 5 mg oral tablet mg tab(s), Oral, Daily, Refills(s) 0 Start Date: 12/24/19 Status: Ordered Comment on above: Take 5 mg by mouth o nce daily. donepezil hydrochloride 10 mg oral tablet (20 sources) Start: 12-24-2019 End: 06-17-2022 take 1 mg by mouth once daily at bedtime donepezil 10 mg Tab mg tab(s), Oral, Once a day (at bedtime), Refills(s) 0 Start Date: 12/24/19 Status: Ordered Comment on above: TAKE 1 TABLET BY DEYSI TH EVERY DAY Take 1 tablet by deysi th once daily. folic acid 1 mg oral tablet (17 sources) Start: 04-20-2022 folic acid 1 mg Tab Refills(s) 0 Start Date: 05/24/22 Status: Ordered Comment on above: Take 1 mg by mouth o nce daily. iv contrast (will be provided with radiology test) (7 sources) Start: 04-21-2022 End: 04-22-2022 inject 1 dose intravenously once iv contrast (will be provided with radiology test) Indications: Visual field defect MRI Brain Inject, intravenously, once for 1 dose.No IV access, insert saline lock prior to beginning of sedation, infusion, injection of imaging exam.Discontinue saline lock post exam. If Pt. has a central line or IVAD, may access for administration according to line specific nursing protocol.Once exam is complete flush line and de-access according to line specific nursing protocol in the MR contrast administration guidelines link 1 Each 0 04/21/2022 04/22/2022 Active Start: 01-17-2020 End: 04-21-2022 iv contrast (will be provide d with radiology test) MRI Pelvis Inject, intravenously, once for 1 dose. No IV access, insert saline lock prior to the beginning of sedation, infusion, injection of imaging exam. Discontinue saline lock post exam. If Pt has a central line or IVAD, may access for administration according to line specific nursing protocol. Once exam is complete flush line and de-access according to line specific nursing protocol in the MR contrast administration guidelines link. 1 Each 0 01/17/2020 04/21/2022 Discontinued (Discontinued by Patient) Start: 01-17-2020 iv contrast (w ill be provided with radiology test) MRI Pelvis Inject, intravenously, once for 1 dose. No IV access, insert saline lock prior to the beginning of sedation, infusion, injection of imaging exam. Discontinue saline lock post exam. If Pt has a central line or IVAD, may access for administration according to line specific nursing protocol. Once exam is complete flush line and de-access according to line specific nursing protocol in the MR contrast administration guidelines link. 1 Each 0 01/17/2020 Active Comment on above: MRI Pelvis Inject, i ntravenously, once for 1 dose. No IV access, insert saline lock prior to the beginning of sedation, infusion, injection of imaging exam. Discontinue saline lock post exam. If Pt has a central line or IVAD, may access for administration according to line specific nursing protocol. Once exam is complete flush line and de-access according to line specific nursing protocol in the MR contrast administration guidelines link. MRI Brain Inject, in travenously, once for 1 dose.No IV access, insert saline lock prior to beginning of sedation, infusion, injection of imaging exam.Discontinue saline lock post exam. If Pt. has a central line or IVAD, may access for administration according to line specific nursing protocol.Once exam is complete flush line and de-access according to line specific nursing protocol in the MR contrast administration guidelines link LORazepam 0.5 mg oral tablet (3 sources) Benzodiazepine Start: 02-10-2023 End: 08-09-2023 LORazepam 0.5 mg Tab Refills(s) 0 Start Date: 03/04/23 Status: Ordered Start: 11-29-2022 take 1 tablet by deysi th twice daily as needed for anxiety LORazepam 0.5 MG 1 tablet Orally Twice a day as needed for anxiety for 15 days Nov, Active Comment on above: Take 1 tablet by deysi th two times a day for 180 days. omeprazole 40 mg delayed release oral capsule (20 sources) Proton Pump Inhibitor Start: 12-24-19 take 1 mg by mouth once daily omeprazole 40 mg Cap-DR mg cap(s), Oral, Daily, Refills(s) 0 Start Date: 12/24/19 Status: Ordered Comment on above: Take 40 mg by mouth once daily. omeprazole 40 mg Cap-DR (2 sources) Start: 12-24-19 take 1 mg by mouth once daily omeprazole 40 mg Cap-DR mg cap(s), Oral, Daily, Refills(s) 0 Start Date: 12/24/19 Status: Ordered sulfamethoxazole 800 mg / trimethoprim 160 mg oral tablet (1 source) Dihydrofolate Reductase Inhibitor Antibacterial, Sulfonamide Antimicrobial Start: 05-25-19 End: 06-04-19 Bactrim D.S. 800 mg-160 mg Tab 160 mg, Oral, BID for 10 day(s), 20 tab(s), Refill(s) 0, [facility]/pharmacy #[id number], 175, cm, 05/24/22 9:42:00 EDT, Height/Length Dosing, 93.7, kg, 05/24/22 9:42:00 EDT, Weight Dosing Start Date: 05/24/22 Stop Date: 06/03/22 Status: Ordered trospium chloride 20 mg oral tablet (20 sources) Cholinergic Muscarinic Antagonist Start: 05-09-19 take 1 tablet by mouth twice daily trospium 20 mg oral tablet 20 mg = 1 tab(s), Oral, BID, # 60 tab(s), Refills(s) 11, [id number], 175, cm, 05/24/22 9:42:00 EDT, Height/Length Dosing, 93.7, kg, 05/24/22 9:42:00 EDT, Weight Dosing Start Date: 02/09/23 Status: Ordered Comment on above: Take 20 mg by mouth. Completed/Discontinued Medications Medication Drug Class(es) Dates Sig (Normalized) Sig (Original) aspirin 81 mg delayed release oral tablet (20 sources) Platelet Aggregation Inhibitor, Nonsteroidal Anti-inflammatory Drug take 1 tablet by mouth once daily aspirin, enteric coated (ASPIRIN, ENTERIC COATED) 81 mg EC tablet Take 81 mg by mouth once daily. 0 Active Comment on above: Take 81 mg by mouth once daily. ciprofloxacin 500 mg oral tablet (2 sources) Quinolone Antimicrobial Start: 06-25-2021 take 1 tablet by mouth once daily Cipro 500 mg Tab 500 mg = 1 tab(s), Oral, Daily, Take 1 tablet the day before the procedure and 1 tablet after the procedure, # 2 tab(s), Refills(s) 0, [id number], 175, cm, 06/03/21 13:22:00 EDT, Height/Length Dosing, 93.5, kg, 06/03/21 13:22:00 EDT,... Start Date: 06/25/21 Status: Ordered escitalopram 10 mg oral tablet (20 sources) Serotonin Reuptake Inhibitor Start: 11-11-2022 End: 02-10-2023 take 1 tablet by mouth once daily escitalopram oxalate (LEXAPRO) 10 mg tablet Indications: Irritability and anger Take 1 tablet by mouth once daily. Continue to follow cross titration instructions 15 tablet 0 11/11/2022 02/10/2023 Discontinued (Clinical Decision) Start: 10-28-2018 End: 11-11-2022 take 1 tablet by mouth once daily at bedtime escitalopram oxalate (LEXAPRO) 20 mg tablet Take 20 mg by mouth daily at bedtime. 5 10/28/2018 11/11/2022 Discontinued Comment on above: Take 20 mg by mouth daily at bedtime. Take 1 tablet by deysi th once daily. 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 180 tablet 1 12/27/2022 Active Start: 01-01-2021 End: 07-05-2022 take 1 tablet by mouth twice daily Namenda 10 MG 1 tablet Orally Twice daily Mar, Active Start: 09-15-2020 take 10 mg by mouth once daily Namenda 10 mg, Oral, Daily, Refills(s) 0 Start Date: 09/15/20 Status: Ordered Comment on above: Take 1 tablet by deysi th twice daily. Take 1 tablet by deysi th two times a day. Krcvuglz-Flgh-Hlw-Fo lic Acid (CENTRUM) 3,500-18-0.4 unit-mg-mg chewable tablet (12 sources) take 1 tablet by mouth every other day, then take 1 tablet by mouth every other day Cfthmzim-Ihpc-Ryu-Fol ic Acid (CENTRUM) 3,500-18-0.4 unit-mg-mg chewable tablet Take 1 tablet by mouth every other day. Taking 1 tablet every other day 0 Active Comment on above: Take 1 tablet by deysi th every other day. Taking 1 tablet every other day 24 hr oxybutynin chloride 5 mg extended release oral tablet (5 sources) Cholinergic Muscarinic Antagonist Start: 1 take 1 tablet by mouth once daily oxybutynin XL (DITROPAN XL) 5 mg 24 hr tablet Take 5 mg by mouth once daily. 0 02/23/2021 Active Comment on above: Take 5 mg by mouth o nce daily. sertraline 50 mg oral tablet (5 sources) Serotonin Reuptake Inhibitor Start: 3 take 1 tablet by mouth once daily sertraline (ZOLOFT) 50 mg tablet Indications: Irritability and anger Take 1 tablet by mouth once daily. 0 02/10/2023 Active Start: 11-11-2022 End: 02-10-2023 take 0.5 tablet by mouth once daily sertraline (ZOLOFT) 50 mg tablet Indications: Irritability and anger Take 0.5 tablets by mouth once daily. Continue to follow cross titration instructions 90 tablet 0 11/11/2022 02/10/2023 Discontinued Comment on above: Take 0.5 tablets by mouth once daily. Continue to follow cross titration instructions Take 1 tablet by deysi th once daily. triamcinolone acetonide 40 mg/ml injectable suspension (6 sources) Corticosteroid Start: 08-18-2022 Kenalog-40 Jul, 60 mg Problems Active Problems Problem Classification Problem Date Documented Da te Episodic/Chronic Anxiety disorders (2 sources) Irritability and anger; Translations: [Irritability and anger] 11-11-2022 Episodic Cancer of prostate (20 sources) Malignant neoplasm of prostate; Translations: [Malignant tumor of prostate] Onset: 01-20-2021 Chronic Deficiency and other anemia (11 sources) Anemia; Translations: [Anemia, unspecified] Episodic Deficiency and other anemia (5 sources) Anemia, unspecified; Translations: [ANEMIA UNSPECIFIED] Onset: 06-16-2022 Episodic Delirium, dementia, and amnestic and other cognitive disorders (20 sources) Primary degenerative dementia of the Alzheimer type, presenile onset, uncomplicated; Translations: [Alzheimer's disease with early onset] Onset: 09-16-2021 Chronic Developmental disorders (11 sources) Expressive language impairment; Translations: [Expressive language disorder] Onset: 04-22-2022 Chronic Diabetes mellitus without complication (11 sources) Diabetes mellitus without complication; Translations: [Type 2 diabetes mellitus without complications] Chronic Disorders of lipid metabolism (15 sources) Pure hypercholesterolemia; Translations: [Familial hypercholesterolemia] Onset: 04-24-2022 Chronic Diverticulosis and diverticulitis (1 source) Diverticulosis of large intestine without perforation or abscess without bleeding; Translations: [DVRTCLOS LG INT NO PERF/ABSC W/O BL] Onset: 06-23-2022 Chronic Esophageal disorders (20 sources) Marcus's esophagus; Translations: [Marcus's esophagus without dysplasia] Onset: 12-30-2017 12-30-2017 Chronic Essential hypertension (20 sources) Hypertensive disorder; Translations: [Essential hypertension] Onset: 05-03-2017 12-24-2019 Chronic Genitourinary symptoms and ill-defined conditions (20 sources) Incontinence; Translations: [Unspecified urinary incontinence] Onset: 04-22-2022 Chronic Genitourinary symptoms and ill-defined conditions (20 sources) Microscopic hematuria; Translations: [Other microscopic hematuria] Onset: 06-03-2021 Episodic Headache; including migraine (17 sources) Chronic headache disorder; Translations: [Headache] Onset: 12-30-2017 12-24-2019 Episodic Hyperplasia of prostate (20 sources) Benign prostatic hypertrophy with outflow obstruction; Translations: [Benign prostatic hyperplasia with lower urinary tract symptoms] Onset: 06-03-2021 Chronic Miscellaneous mental health disorders (11 sources) Occipital headache; Translations: [Occipital headache] Chronic Mood disorders (20 sources) Depressive disorder; Translations: [Major depression, single episode] Onset: 01-07-2020 12-24-2019 Chronic Nonspecific chest pain (11 sources) Chest pain; Translations: [Other chest pain] Episodic Nutritional deficiencies (1 source) Deficiency of other specified B group vitamins Episodic Osteoarthritis (11 sources) Arthritis of shoulder region joint; Translations: [Primary osteoarthritis, left shoulder] Chronic Other aftercare (1 source) 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 (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; Translations: [CARE HOME CURRENT USE OF ASPIRIN] Onset: 06-23-2022 Episodic Other circulatory disease (11 sources) History of cerebrovascular accident without residual deficits; Translations: [Personal history of transient ischemic attack (TIA), and cerebral infarction without residual deficits] Episodic Other connective tissue disease (1 source) Unspecified symptoms and signs involving the nervous system Episodic Other diseases of bladder and urethra (1 source) Other specified disorders of bladder; Translations: [OTHER SPECIFIED DISORDERS BLADDER] Onset: 07-02-2021 Chronic Other diseases of kidney and ureters (1 source) Urinary tract obstruction; Translations: [Other obstructive and reflux uropathy] Onset: 06-03-2021 Episodic Other ear and sense organ disorders (11 sources) Impacted cerumen; Translations: [Impacted cerumen, right ear] Episodic Other gastrointestinal disorders (1 source) Personal history of other diseases of the digestive system; Translations: [PERSONAL HX OTH DZ DIGESTIVE SYSTEM] Onset: 06-23-2022 Episodic Other hereditary and degenerative nervous system conditions (14 sources) Impaired cognition; Translations: [Mild cognitive impairment, so stated] Onset: 12-30-2017 12-30-2017 Chronic Other nervous system disorders (1 source) Visuospatial deficit; Translations: [Visuospatial deficit] 02-10-2023 Chronic Other screening for suspected conditions (not mental disorders or infectious disease) (18 sources) Raised prostate specific antigen; Translations: [Prostate specific antigen measurement] Onset: 03-04-2023 01-07-2020 Episodic Other upper respiratory disease (17 sources) Seasonal allergic rhinitis; Translations: [Other seasonal allergic rhinitis] Chronic Other upper respiratory disease (1 source) Other seasonal allergic rhinitis Chronic Residual codes; unclassified (5 sources) Transient alteration of awareness; Translations: [Transient alteration of awareness] Onset: 09-14-2021 Episodic Superficial injury; contusion (20 sources) Contusion of left thigh; Translations: [Contusion of left thigh, initial encounter] Episodic Transient cerebral ischemia (1 source) Cerebral ischemia; Translations: [Transient cerebral ischemic attack, unspecified] 11-11-2022 Chronic Unclassified (3 sources) Asymptomatic microscopic hematuria 10-12-2021 Past or Other Problems Problem Classification Problem Date Documented Da te Episodic/Chronic Abdominal hernia (13 sources) Diaphragmatic hernia; Translations: [Diaphragmatic hernia without obstruction or gangrene] Onset: 12-30-2017 12-30-2017 Episodic Blindness and vision defects (10 sources) Visual field defect; Translations: [Unspecified visual field defects] Onset: 04-22-2022 Episodic Cancer of prostate (4 sources) Personal history of malignant neoplasm of prostate; Translations: [PERSONAL HX MALIG NEOPLASM PROSTATE] Onset: 10-09-2021 Episodic Esophageal disorders (9 sources) Esophageal disorders; Translations: [Gastroesophageal reflux disease with esophagitis without hemorrhage] Fluid and electrolyte disorders (1 source) Dehydration; Translations: [DEHYDRATION] Onset: 09-16-2021 Episodic Fracture of upper limb (12 sources) Closed fracture of distal end of radius; Translations: [Other intraarticular fracture of lower end of right radius, initial encounter for closed fracture] Onset: 12-30-2017 12-30-2017 Episodic Gastritis and duodenitis (14 sources) Duodenitis; Translations: [Duodenitis without bleeding] Onset: 12-30-2017 12-30-2017 Episodic Gastrointestinal hemorrhage (12 sources) Hematemesis; Translations: [Hematemesis] Onset: 12-30-2017 12-30-2017 Episodic Other aftercare (1 source) Other termite helper (current) drug therapy; Translations: [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 DRUG THERAPY] Onset: 09-16-2021 Episodic Other male genital disorders (1 source) Other specified disorders of prostate; Translations: [OTHER SPECIFIED DISORDERS PROSTATE] Onset: 07-02-2021 Episodic Other skin disorders (1 source) Generalized hyperhidrosis; Translations: [GENERALIZED HYPERHIDROSIS] Onset: 09-16-2021 Episodic Syncope (1 source) Syncope and collapse; Translations: [SYNCOPE AND COLLAPSE] Onset: 09-16-2021 Episodic Unclassified (1 source) Dementia in other diseases classified elsewhere, moderate, with agitation F02.B11 Results Test Name Value Interpretation Reference Range Facility Ambulatory Visit Summaryon 0 03-04-2023 Ambulatory Visit Summary TAMMY ROWLAND :1955 Visit Date:03/04/2023 Ambulatory Visit Instructions Your Diagnosis Rising PSA following treatment for malignant neoplasm of prostate Prostate cancer Nocturia Enuresis BPH with urinary obstruction Asymptomatic microscopic hematuria Your Care Team Attending Physician - Armin RODRÍGUEZ MD Primary Care Physician - MIKE FAY DO This Is Your Medications List trospium (trospium 20 mg oral tablet) Contact prescribing physician if questions or concerns aspirin (Aspir 81) atropine-diphenoxyla te (Lomotil) benazepril (benazepril 5 mg oral tablet) donepezil (donepezil 10 mg Tab) folic acid (folic acid 1 mg Tab) lorazepam (LORazepam 0.5 mg Tab) memantine (Namenda) omeprazole (omeprazole 40 mg Cap-DR) Procedures Performed Cystoscopy (06/29/2021), Brachytherapy (05/22/2020), Transrectal biopsy of prostate using ultrasound guidance (12/31/2019), External beam radiotherapy, Ts - Tonsillectomy. Discharge Vitals Heart Rate (Peripheral) 61 Respiratory Rate 16 Blood Pressure 137/75 Height 175 cm Height 69 in Weight 82.5 kg Weight 181.5 lb BMI 26.94 What to do next Scheduled Follow-Up Appointments Tuesday 10:45 AM EDT With: Armin RODRÍGUEZ MD Where: [facility] Patient Educationon 03-04-19 24 Patient Education Oncology Prostate Cancer The prostate is a small gland that produces fluid that makes up semen (seminal fluid). It is located below the bladder in men, in front of the rectum. Prostate cancer is the abnormal growth of cells in the prostate gland. What are the causes? The exact cause of this condition is not known. What increases the risk? You are more likely to develop this condition if: ? You are 65 years of age or older. ? You have a family history of prostate cancer. ? You have a family history of breast and ovarian cancer. ? You have genes that are passed from parent to child (inherited), such as BRCA1 and BRCA2. ? You have Lagunas syndrome. men and men of descent are diagnosed with prostate cancer at higher rates than other men. The reasons for this are not well understood and are likely due to a combination of genetic and environmental factors. What are the signs or symptoms? Symptoms of this condition include: ? Problems with urination. This may include: ? A weak or interrupted flow of urine. ? Trouble starting or stopping urination. ? Trouble emptying the bladder all the way. ? The need to urinate more often, especially at night. ? Blood in urine or semen. ? Persistent pain or discomfort in the lower back, lower abdomen, or hips. ? Trouble getting an erection. ? Weakness or numbness in the legs or feet. How is this diagnosed? This condition can be diagnosed with: ? A digital rectal exam. For this exam, a health care provider inserts a gloved finger into the rectum to feel the prostate gland. ? A blood test called a prostate-specific antigen (PSA) test. ? A procedure in which a sample of tissue is taken from the prostate and checked under a microscope (prostate biopsy). ? An imaging test called transrectal ultrasonography. Once the condition is diagnosed, tests will be done to determine how far the cancer has spread. This is called staging the cancer. Staging may involve imaging tests, such as a bone scan, CT scan, PET scan, or MRI. Stages of prostate cancer The stages of prostate cancer are as follows: ? Stage 1 (I). At this stage, the cancer is found in the prostate only. The cancer is not visible on imaging tests, and it is usually found by accident, such as during prostate surgery. ? Stage 2 (II). At this stage, the cancer is more advanced than it is in stage 1, but the cancer has not spread outside the prostate. ? Stage 3 (III). At this stage, the cancer has spread beyond the outer layer of the prostate to nearby tissues. The cancer may be found in the seminal vesicles, which are near the bladder and the prostate. ? Stage 4 (IV). At this stage, the cancer has spread to other parts of the body, such as the lymph nodes, bones, bladder, rectum, liver, or lungs. Prostate cancer grading Prostate cancer is also graded according to how the cancer cells look under a microscope. This is called the Higinio score and the total score can range from 6?10, indicating how likely it is that the cancer will spread (metastasize) to other parts of the body. The higher the score, the greater the likelihood that the cancer will spread. ? Higinio 6 or lower: This indicates that the cancer cells look similar to normal prostate cells (well differentiated). ? [place] 7: This indicates that the cancer cells look somewhat similar to normal prostate cells (moderately differentiated). ? Higinio 8, 9, or 10: This indicates that the cancer cells look very different than normal prostate cells (poorly differentiated). How is this treated? Treatment for this condition depends on several factors, including the stage of the cancer, your age, personal preferences, and your overall health. Talk with your health care provider about treatment options that are recommended for you. Common treatments include: ? Observation for early stage prostate cancer (active surveillance). This involves having exams, blood tests, and in some cases, more biopsies. For some men, this is the only treatment needed. ? Surgery. Types of surgeries include: ? Open surgery (radical prostatectomy). In this surgery, a larger incision is made to remove the prostate. ? A laparoscopic radical prostatectomy. This is a surgery to remove the prostate and lymph nodes through several small incisions. It is often referred to as a minimally invasive surgery. ? A robotic radical prostatectomy. This is laparoscopic surgery to remove the prostate and lymph nodes with the help of robotic arms that are controlled by the surgeon. ? Cryoablation. This is surgery to freeze and destroy cancer cells. ? Radiation treatment. Types of radiation treatment include: ? External beam radiation. This type aims beams of radiation from outside the body at the prostate to destroy cancerous cells. ? Brachytherapy. This type uses radioactive needles, seeds, wires, or tubes that are implanted into the prostate gland. Like external be (more content not included)... Normal [facility] Urology Office/Clinic Noteon 03-04-2023 Urology Office/Clinic Note Chief Complaint PSA HPI Staff Pt with worsening dementia, here today with his for 6 month f/u with PSA. Previous dx of nocturia, enuresis, prostate cancer (EBRT and Brachytherapy 2020), BPH with urinary obstruction and asymptomatic microhematuria. Current PSA done 11/24/22 is 0.35 and previous done04/17/22 was <0.13. Last seen by Dr Thomas 03/02/23 is concerned with 20lb weight loss from October to January. Provider @ [facility] that they see for Alzheimers, did recommend that pt get reevaluated for possible recurrence of prostate cancer. Some incontinence at times. Does wear depends. Denies visible blood. History of Present Illness Tests reviewed: reviewed UA & PSA. I have reviewed the previous health record information and history for this patient from Dr. Rodríguez. I have reviewed and verified the staff HPI to be accurate for this encounter. There have been no associated fever, chills, flank pain, or blood in the urine. Denies any urinary infections since last encounter. Review of Systems PHQ Score Initial Depression Screen Score: 0 SCORE ROS - Provider Constitutional: denies weight loss, denies hot flashes. Eyes: denies eye problems. Gastrointestinal: denies nausea, denies vomiting. Cardiovascular: denies chest pain or angina. Integumentary: no dryness Musculoskeletal: denies musculoskeletal symptoms. ENMT: denies otolaryngeal symptoms. Respiratory: no shortness of breath. Heme/Lymph: denies easy bleeding tendency, denies easy bruising tendency. Psychiatric: no confusion, no anxiety. Genitourinary: See HPI. Physical Exam Vitals & Measurements HR: 61(Peripheral) RR: 16 BP: 137/75 HT: 69 in HT: 175 cm WT: 82.5 kg WT: 181.5 lb BMI: 26.94 General Appearance: alert, no distress, well nourished, well developed male. Genitourinary: normal scrotum, normal testes, normal urethra, normal epididymis, normal vas deferens/spermatic cord. Flank Pain: none. Bladder: nonpalpable. Assessment/Plan Pt's acted as chief historian for this visit due to pt's Alzheimer's. 1. Rising PSA following treatment for malignant neoplasm of prostate (R97.21: Rising PSA following treatment for malignant neoplasm of prostate) PSA: 12/11/20 - 0.05 03/19/21 - 0.05 10/09/21 - <0.13 04/17/22 - <0.13 11/24/22 - 0.35 02/03/23 - 0.35 Discussed PSMA PET scan. Will continue to monitor PSA. PSA needs to be rechecked within 3 months. -PSA in 3 months -Follow up in 6 months w/ repeat PSA 2. Prostate cancer (C61: Malignant neoplasm of prostate) TRUS/bx 12/31/19. G6 (3+3) in 3/5 cores. G7 (3+4) in 1 core. G7 (4+3) in 1 core. EBRT 03/12/20 - 04/21/20. Brachytherapy 05/22/20. Last seen by oncology 03/02/23. Plan at that time was to continue to recheck PSA in 1 year. states pt has lost 20 pounds within 2 months, although may be related to his underlying dementia. See #1. 3. Nocturia (R35.1: Nocturia) PVR 05/07/21 - 10 cc. Taking Trospium 20 mg BID. Pt was treated with Bactrim DS BID x 10 days at last visit. 4. Enuresis (R32: Unspecified urinary incontinence) See #3. 5. BPH with urinary obstruction (N40.1: Benign prostatic hyperplasia with lower urinary tract symptoms) IPSS 13 (15). Sheet not filled out today. states he is wearing depends which are soaked. No difficulty w/ stream or emptying. Denies UTIs. See #3. 6. Asymptomatic microscopic hematuria (R31.21: Asymptomatic microscopic hematuria) FISH/cytol 06/03/21 - Neg. CT AP w/wo con 06/23/21 - No acute abdominal or pelvic findings. Normal kidneys. Cysto 06/29/21 - The prostatic urethra was strikingly abnormal, lateral lobe obstruction. Evidence of hematoma formation within the lateral lobes more on the right than left. (Cx'd UDS) No urine sample today as pt attempted to provide specimen using a hat and he missed the hat. states she will drop off sample sometime next week. Follow-up With When Contact Information MARCOS MARIN, Armin Watkins, [address] [place] [address]- Additional Instructions: 6 months w/ PSA Patient Education Prostate Cancer I, Nancy Alegria, personally scribed for Dr. Rodríguez on 03/04/2023 12:19:18. . Documentation recorded by the scribe, Nancy Alegria, accurately reflects the services(s) I performed and decisions made by me. Authenticated by Dr. Rodríguez on 03/04/2023 12:21:05. Problem List/Past Medical History Ongoing Alzheimer disease Asymptomatic microscopic hematuria BPH with urinary obstruction Chronic headaches Depression Elevated PSA Enuresis Hypertension Nocturia Prostate cancer Rising PSA following treatment for malignant neoplasm of prostate Historical No qualifying data Procedure/Surgical History Cystoscopy (06/29/2021), Brachytherapy (05/22/2020), Transrectal biopsy of prostate using ultrasound guidance (12/31/2019), External beam radiotherapy, Ts - Tonsillectomy. Medications Aspir 8 (more content not included)... Normal [facility] Comment on above: Result Comment: Elec tronically Signed By: Armin RODRÍGUEZ MD\.br\Date and Time Signed: 03/04/23 12:21 EST\.br\Electronically Co-Signed By: Nancy Alegria.br\Date and Time Co-Signed: 03/04/23 12:19 EST Consultation Noteon 03-03-19 Consultation Note [id number] #[id number] [facility] CNOVon 03-02-2023 CNOV Office Visit (RADTSA) TAMMY ROWLAND ([id number]) 1955 Date Time Provider Department 03/02/23 11:30 AM Joann THOMAS During your visit today, we recorded the following information about you: Temperature Pulse Respiration Blood pressure 97.3 degrees 57/minute 16/minute 132/82 Weight 82.3 kg Luciana Larson LPN 03/02/2023 12:45 PM Signed Joann Stinson MD 03/02/2023 12:45 PM Signed Radiation Oncology - Follow Up Note PATIENT NAME: Tammy Rowland PATIENT DIAGNOSIS: Prostate adenocarcinoma, initial PSA 7.6, biopsy [place] score 4 + 3 = 7 (grade group 3), clinical stage T1c, N0, M0, stage IIC [T1-T2, N0, M0, PSA <20, GG 3] (AJCC 8th ed.), s/p TRUS Random biopsy. Prostate cancer (C61), 2019 NCCN Risk Group: Unfavorable Intermediate Risk Group RADIATION SUMMARY: DATES OF TREATMENT: External Beam: 03/12/20 - 04/21/20 Prostate Brachytherapy: 05/22/20 AREA TREATED: Prostate and pelvis DELIVERED DOSE: Pelvis 45 Gy in 25 fractions, 3 Arcs, VMAT, 10MV with daily cbct Prostate 100 Gy, Pd103 sources, 90 sources,141.57 mCi . INTERVAL HISTORY: Patient having worsening of his dementia. Also has had some weight loss over the last 6 to 12 months. Denies chest pain shortness of breath or cough. No abdominal pain. Continues to have urinary incontinence, chronic. PSA HISTORY: PSA. (no units) Date Value 02/03/2023 0.35 11/24/2022 0.35 04/17/2022 <0.13 01/18/2022 <0.13 01/18/2022 <0.13 ALLERGIES Allergen Reactions Hay Fever [Seasonal* Unknown LORazepam (ATIVAN) 0.5 mg Take 1 tablet by mouth two times a day for 180 days. memantine (NAMENDA) 10 mg tablet Take 1 tablet by mouth two times a day. folic acid 1 mg tablet Take 1 mg by mouth once daily. donepezil (ARICEPT) 10 mg tablet Take 1 tablet by mouth once daily. trospium (SANCTURA) 20 mg tablet Take 20 mg by mouth. benazepril (LOTENSIN) 5 mg tablet Take 5 mg by mouth once daily. Omeprazole 40 mg capsule Take 40 mg by mouth once daily. aspirin, enteric coated (ASPIRIN, ENTERIC COATED) 81 mg EC tablet Take 81 mg by mouth once daily. Mgtyghdv-Dlht-Cow-Fo lic Acid (CENTRUM) 3,500-18-0.4 unit-mg-mg chewable tablet Take 1 tablet by mouth every other day. Taking 1 tablet every other day sertraline (ZOLOFT) 50 mg tablet Take 1 tablet by mouth once daily. REVIEW OF SYSTEMS: D/N = 4-6/2 Hematuria: none Dysuria: none Incontinence: Yes Urgency: Mild to moderate Catheter use: none Medications to aid urination: y AUA= N/A Bowel movement frequency: 1-2/day Bowel movement quality: normal Blood per rectum: none PHYSICAL EXAM: BP 132/82 Pulse (!) 57 Temp 36.3 ?C (97.3 ?F) Resp 16 Wt 82.3 kg (181 lb 7 oz) SpO2 98% BMI 26.99 kg/m? KPS: 70 General appearance: Alert and oriented. No acute distress. Abdomen: Normal abdominal exam, Abdomen soft, non-tender. No masses, organomegaly. Rectal exam def Extremities: No deformities, edema, skin discoloration, clubbing or cyanosis. Lymph Nodes: No cervical lymphadenopathy, No supraclavicular lymphadenopathy, No axillary lymphadenopathy. Skin: Skin color, texture, turgor normal, no suspicious rashes or lesions. ASSESSMENT/PLAN: Prostate adenocarcinoma, initial PSA 7.6, biopsy Higinio score 4 + 3 = 7 (grade group 3), clinical stage T1c, N0, M0, stage IIC [T1-T2, N0, M0, PSA <20, GG 3] (AJCC 8th ed.) status post radiation and prostate brachytherapy. PSA remains low. No significant posttreatment related issues. He has had some weight loss which may be related to his underlying dementia. No clinical evidence of etiology, do not feel further radiographic workup warranted at this time without specific symptoms. Plan to recheck PSA in 12 months. Signed by: Joann Thomas MD cc: Mike Fay MD ([facility]) [address] [place] [id number] Rodríguez Portions of the above note extracted and edited from previous visit as well as active information included in the EMR. Referring Provider: Joann THOMAS [[id number]] Allergies As of Date: 03/02/2023 Noted Allergy Reaction HAY FEVER (SEASONAL ALLERGIES) 01/04/2017 16 - Unknown Date Reviewed: 03/02/2023 Reviewed by: Luciana Larson LPN - Fully Assessed Primary Visit Diagnosis:Malignant neoplasm of prostate (HCC) [C61] Order(s):PSA (OUTSIDE) [1641573] Order #: [id number] PSA/PROSTSPECAG DIAG [SQPSA] Order #: [id number] FUTURE Prescriptions as of 03/02/2023 - LORazepam (ATIVAN) 0.5 mg Take 1 tablet by mouth two times a day for 180 days. - memantine (NAMENDA) 10 mg tablet Take 1 tablet by mouth two times a day. - folic acid 1 mg tablet Take 1 mg by mouth once daily. - donepezil (ARICEPT) 10 mg tablet Take 1 tablet by mouth once daily. - trospium (SANCTURA) 20 mg tablet Take 20 mg by mouth. - benazepril (LOTENSIN) 5 mg tablet Take 5 (more content not included)... Normal [facility] 02-12-2023 [facility] Telephone (NEMShadi) TAMMY ROWLAND ([id number]) 1955 M Date Time Provider Department 02/12/23 JUDIT HECTOR During your visit today, we recorded the following information about you: Lindsey Rodgers 02/12/2023 8:27 AM Signed [employer] [facility] SENT. (PHONE / NO ANSWER) PATENT TO SCHEDULE VIRTUAL FOLLOW UP WITH [facility]/SOCIAL WORK / YAJAIRA. ANY PSS CAN ASSIST. Allergies As of Date: 02/12/2023 Noted Allergy Reaction HAY FEVER (SEASONAL ALLERGIES) 01/04/2017 16 - Unknown Date Reviewed: 02/10/2023 Reviewed by: Judit Hector APRN.FAGOT HEATER HELPER - Fully Assessed Reason for Visit: Appointment [186] Cmt: TRINA MSG SENT. (PHONE / NO ANSWER) PATENT TO SCHEDULE VIRTUAL FOLLOW UP WITH [facility]/SOCIAL WORK / YAJAIRA. ANY PSS CAN ASSIST. Prescriptions as of 02/12/2023 - LORazepam (ATIVAN) 0.5 mg Take 1 tablet by mouth two times a day for 180 days. - sertraline (ZOLOFT) 50 mg tablet Take 1 tablet by mouth once daily. - memantine (NAMENDA) 10 mg tablet Take 1 tablet by mouth two times a day. - folic acid 1 mg tablet Take 1 mg by mouth once daily. - donepezil (ARICEPT) 10 mg tablet Take 1 tablet by mouth once daily. - trospium (SANCTURA) 20 mg tablet Take 20 mg by mouth. - benazepril (LOTENSIN) 5 mg tablet Take 5 mg by mouth once daily. - Omeprazole 40 mg capsule Take 40 mg by mouth once daily. - aspirin, enteric coated (ASPIRIN, ENTERIC COATED) 81 mg EC tablet Take 81 mg by mouth once daily. - Mgkkfept-Ozda-Yhj-Fo lic Acid (CENTRUM) 3,500-18-0.4 unit-mg-mg chewable tablet Take 1 tablet by mouth every other day. 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*04/22/2022 Expressive language impairment [F80.1] 04/22/2022 Visual field defect [H53.40] 04/22/2022 Bowel and bladder incontinence [R32, R15.9] 04/22/2022 Encounter Status:Closed by LINDSE[facility]ERS [facility] (COLTENDanny) TAMMY ROWLAND ([id number]) 1955 M Date Time Provider Department 02/08/23 JUDIT HECTOR During your visit today, we recorded the following information about you: Yuliya Dutta 02/08/2023 12:50 PM Signed Name of caller: Emily Relationship to patient: Contact number: [phone] Chief Complaint:Patient update Reason for call: Change in condition called to state that he has lost about 20+ pounds over the last month. She states he is refusing to eat and do anything. She would like to know what she can do. Please advise. Stacey Cuevas RN 02/08/2023 1:27 PM Signed RN called spouse, Emily back, no answer, unable to leave a message. Will try to call back at a later time today. Stacey Cuevas RN Allergies As of Date: 02/08/2023 Noted Allergy Reaction HAY FEVER (SEASONAL ALLERGIES) 01/04/2017 16 - Unknown Date Reviewed: 11/11/2022 Reviewed by: Betsy Benito - Fully Assessed Reason for Visit: Patient Update [1234] Cmt: Change in condition Prescriptions as of 02/08/2023 - memantine (NAMENDA) 10 mg tablet Take 1 tablet by mouth two times a day. - folic acid 1 mg tablet Take 1 mg by mouth once daily. - escitalopram oxalate (LEXAPRO) 10 mg tablet Take 1 tablet by mouth once daily. Continue to follow cross titration instructions - sertraline (ZOLOFT) 50 mg tablet Take 0.5 tablets by mouth once daily. Continue to follow cross titration instructions - donepezil (ARICEPT) 10 mg tablet Take 1 tablet by mouth once daily. - trospium (SANCTURA) 20 mg tablet Take 20 mg by mouth. - benazepril (LOTENSIN) 5 mg tablet Take 5 mg by mouth once daily. - Omeprazole 40 mg capsule Take 40 mg by mouth once daily. - aspirin, enteric coated (ASPIRIN, ENTERIC COATED) 81 mg EC tablet Take 81 mg by mouth once daily. - Letbcbkf-Avla-Qxd-Fo lic Acid (CENTRUM) 3,500-18-0.4 unit-mg-mg chewable tablet Take 1 tablet by mouth every other day. Taking 1 tablet every other day Problem List As Of Date 02/08/2023 Noted Resolved Marcus's esophagus without dysplasia [K22.70] 12/30/2017 Duodenitis without bleeding [K29.80] 12/30/2017 Diaphragmatic hernia without obstruction or shayne*12/30/2017 Essential (primary) hypertension [I10] 05/03/2017 Hematemesis [K92.0] 12/30/2017 Headache [R51.9] 12/30/2017 Mild cognitive impairment [G31.84] 12/30/2017 Other intraarticular fracture of lower end of r*12/30/2017 Major depressive disorder, single episode, unsp*01/07/2020 Prostate cancer (HCC) [C61] 01/20/2021 Early onset Alzheimer's disease without behavio*04/22/2022 Expressive language impairment [F80.1] 04/22/2022 Visual field defect [H53.40] 04/22/2022 Bowel and bladder incontinence [R32, R15.9] 04/22/2022 Encounter Status:Closed by STACEY CUEVAS on 02/08/23 [facility] Report[facility] 11-26-2022 Lab Reports [id number] #[id number]:[id number] Normal [facility] Parmjit 11-19-2022 [facility] Telephone ([facility]) TAMMY ROWLAND ([id number]) 1955 M Date Time Provider Department 11/19/22 JUDIT HECTOR During your visit today, we recorded the following information about you: Stacey Cuevas RN 11/19/2022 10:56 AM Addendum ----- Message from Judit Hector APRN.FAGOT HEATER HELPER sent at 11/19/2022 10:07 AM EDT ----- Regarding: help w/ MRI Can someone give the Radiology dept at [facility] a call at [phone] and ask them if we can please fax them an order for a Brain MRI for this patient? Then can you print my recent MRI order and fax it to them and please ask them to reach out to his spouse Emily to schedule? Thanks!! stefany 10:50 am, RN called [facility] department and spoke to Shania, the fax number to fax the MRI for the brain to them is: [phone],- will send this message to Laura to fax the order over with the message in comments for Radiology to call the spouse, Emily at [phone] to get the patient scheduled for the MRI there. Forward to Laura Cuevas RN Allergies As of Date: 11/19/2022 Noted Allergy Reaction HAY FEVER (SEASONAL ALLERGIES) 01/04/2017 16 - Unknown Date Reviewed: 11/11/2022 Reviewed by: Betsy Benito - Fully Assessed Reason for Visit: Behavioral Health Clinician - Other [0445] Prescriptions as of 11/19/2022 - folic acid 1 mg tablet Take 1 mg by mouth once daily. - escitalopram oxalate (LEXAPRO) 10 mg tablet Take 1 tablet by mouth once daily. Continue to follow cross titration instructions - sertraline (ZOLOFT) 50 mg tablet Take 0.5 tablets by mouth once daily. Continue to follow cross titration instructions - memantine (NAMENDA) 10 mg tablet Take 1 tablet by mouth twice daily. - donepezil (ARICEPT) 10 mg tablet Take 1 tablet by mouth once daily. - trospium (SANCTURA) 20 mg tablet Take 20 mg by mouth. - benazepril (LOTENSIN) 5 mg tablet Take 5 mg by mouth once daily. - Omeprazole 40 mg capsule Take 40 mg by mouth once daily. - aspirin, enteric coated (ASPIRIN, ENTERIC COATED) 81 mg EC tablet Take 81 mg by mouth once daily. - Divxbjgm-Umsg-Bzw-Fo lic Acid (CENTRUM) 3,500-18-0.4 unit-mg-mg chewable tablet Take 1 tablet by mouth every other day. Taking 1 tablet every other day Problem List As Of Date 11/19/2022 Noted Resolved Marcus's esophagus without dysplasia [K22.70] 12/30/2017 Duodenitis without bleeding [K29.80] 12/30/2017 Diaphragmatic hernia without obstruction or shayne*12/30/2017 Essential (primary) hypertension [I10] 05/03/2017 Hematemesis [K92.0] 12/30/2017 Headache [R51.9] 12/30/2017 Mild cognitive impairment [G31.84] 12/30/2017 Other intraarticular fracture of lower end of r*12/30/2017 Major depressive disorder, single episode, unsp*01/07/2020 Prostate cancer (HCC) [C61] 01/20/2021 Early onset Alzheimer's disease without behavio*04/22/2022 Expressive language impairment [F80.1] 04/22/2022 Visual field defect [H53.40] 04/22/2022 Bowel and bladder incontinence [R32, R15.9] 04/22/2022 Encounter Status:Closed by STACEY CUEVAS on 11/19/22 [facility] CNOVkami 11-11-2022 [facility] Office Visit (COLTENDanny) TAMMY ROWLAND ([id number]) 1955 M Date Time Provider Department 11/11/22 3:15 PM JUDIT HECTOR During your visit today, we recorded the following information about you: Pulse Blood pressure Weight 60/minute 125/81 91.6 kg ThongBetsy 11/11/2022 3:07 PM Signed Tammy Rowland is a 67 year old year old man accompanied by: spouse. Do you have any changes or new concerns you would like to address at the visit today? Per spouse, Things are just in general starting to slow down. Not eating right, incontinence, wondering. Vital Signs: BP 125/81 Pulse 60 Wt 91.6 kg (202 lb) BMI 30.05 kg/m? Judit Hector APRN.FAGOT HEATER HELPER 11/11/2022 7:34 PM Signed Tammy Rowland 1955 [address] [facility] [id number] November 11, 2022 [facility] FOLLOW-UP NOTE Accompanied by: spouse Emily TRAORE Tammy Rowland is a pleasant 67 year old male seen today for a follow up visit. Tammy Rowland is being followed for Mild Cognitive Impairment with language-variant AD.- CSF biomarker confirmed (F80.1) Expressive language impairment (H53.40) Visual field defect, reported (R32, R15.9) Bowel and bladder incontinence Patient was last seen on 04/21/22, at which time: PLAN: Try offering an Ensure or Boost shake to Tammy if he will not eat a meal- at least this is some calories that can make up for a missed meal Repeat MRI w/ contrast to ensure no major new changes in the visual pathways of the brain or visual cortex- I will call [facility] and get the order sent over Consider meeting again with our forensic social worker Yajaira Salcido at some point to talk more about resources and support Follow up in 4-6 weeks- as long as MRI is complete and we have received the image and radiology read Today, Pt and spouse returns for a routine follow up visit. Lots of little changes - appetite - food isn't important to him, medications - needs lots of encouragement to take. Pt has lost weight, his clothes hang on hiim. Pt doesn't feel hungry for meals. He only wants to eat a hamburger. They have not tried Ensure or Boost shakes. Pt is more aggravated and irritable and wants to take off on . Twice he has attempted to take a swing at spouse. This has happened when he wants to leave for a walk and spouse tried to stop him. Also when they are having a disagreement. Incontinence bowel and bladder Spouse has questions regarding what stage of the disease he is in and what to do next Recently moved into independent living with spouse Has wandered and gotten lost within the last 2 weeks from their new independent living facility. Walked about a mile from their new place. Some people saw him wandering and called the police to help. Wandering has been a daily issue. Facility has buzzers on the door to be alerted when he leaves. This spring, he met spouse at the [employer] shop. Tongue was hanging out of his mouth. Spouse thought it was a stroke. Went to ER - Did not show a stroke but was told it could have been a mild stroke Didn't know about getting a new MRI. They were not contacted. More suspicious of things. Had a large amount of money in his wallet. Money was missing and he was suspicious someone took it - he had put it elsewhere in the house. Other interval history: Falls: negative Sleep: described as normal, feels rested upon waking, naps during the day Mood: happy ADL's requires assistance with the following ADL's: bathing, toileting, feeding (needs prompting), using household appliances, taking medications, using telephone, dressing, grocery shopping, driving, and finances Durable POA: Yes spouse Emily Financial POA: Yes spouse Emily Driving?: No Symptoms Functional Assessment Staging (FAST) 5=Requires assistance in choosing proper clothing to wear for the day, season, or occasion, e.g., patient may wear the same clothing repeatedly, unless supervised. PAST MEDICAL HISTORY Diagnosis Date Alzheimer's dementia (HCC) Hypertension Major depressive disorder, single episode, unspecified 01/07/2020 Prostate cancer (HCC) 01/20/2021 SOCIAL HISTORY Social History Tobacco Use Smoking status: Never Smokeless tobacco: Never Vaping Use Vaping Use: Never used Substance Use Topics Alcohol use: Not Currently Comment: 1 wine per month Drug use: Never Social History reviewed by Judit Hector APRN.CNP PATIENT-ENTERED DATA Patient-Reported 11/10/2022 09/22/2022 Where are you currently living? Home / Private residence Home / Private residence Are you using any community resources to help care for yourself? No No Has your caregiver accompanied you today? Yes Yes Did you receive help completing this questionnaire? Yes Yes If you received help, could you have completed this questi (more content not included)... Normal [facility] H PYLORI TISSUEon 06-16-2022 H PYL TISSUE, UREASE Negative Normal NEGATIVE [facility] Comment on above: Performed By: #### H PYLT #### [facility] [address] [place] [address] Dr. Nitin Harris Screenson 05-26-2022 Screens [id number] Normal [facility] Ambulatory Visit Summaryon 0 05-24-2022 Ambulatory Visit Summary TAMMY ROWLAND :1955 Visit Date:05/24/2022 Ambulatory Visit Instructions Your Diagnosis Nocturia Enuresis Prostate cancer BPH with urinary obstruction Asymptomatic microscopic hematuria Tests Performed Urnls Dip Stick Auto w/o Microscopy POC 53420 Your Care Team Attending Physician - MARCOS MARIN, Armin Watkins Primary Care Physician - MIKE FAY DO This Is Your Medications List trospium (trospium 20 mg oral tablet) Contact prescribing physician if questions or concerns aspirin (Aspir 81) atropine-diphenoxyla te (Lomotil) benazepril (benazepril 5 mg oral tablet) donepezil (donepezil 10 mg Tab) escitalopram (escitalopram 20 mg Tab) folic acid (folic acid 1 mg Tab) memantine (Namenda) omeprazole (omeprazole 40 mg Cap-DR) Procedures Performed Cystoscopy (06/29/2021), Brachytherapy (05/22/2020), Transrectal biopsy of prostate using ultrasound guidance (12/31/2019), External beam radiotherapy, Ts - Tonsillectomy. Discharge Vitals Heart Rate (Peripheral) 70 Respiratory Rate 16 Blood Pressure 136/87 Height 175 cm Height 69 in Weight 93.7 kg Weight 206.14 lb BMI 30.6 What to do next Scheduled Follow-Up Appointments Tuesday 11:00 AM EDT With: MARCOS MARIN, Armin Watkins Where: [facility] Denia Contreras [facility] Patient Educationon 05-25-19 23 Patient Education Oncology Prostate Cancer The prostate is a walnut-sized gland that is involved in the production of semen. It is located below a man's bladder, in front of the rectum. Prostate cancer is the abnormal growth of cells in the prostate gland. What are the causes? The exact cause of this condition is not known. What increases the risk? This condition is more likely to develop in men who: ? Are older than age 65. ? Are -[place]. ? Are obese. ? Have a family history of prostate cancer. ? Have a family history of breast cancer. What are the signs or symptoms? Symptoms of this condition include: ? A need to urinate often. ? Weak or interrupted flow of urine. ? Trouble starting or stopping urination. ? Inability to urinate. ? Pain or burning during urination. ? Painful ejaculation. ? Blood in urine or semen. ? Persistent pain or discomfort in the lower back, lower abdomen, hips, or upper thighs. ? Trouble getting an erection. ? Trouble emptying the bladder all the way. How is this diagnosed? This condition can be diagnosed with: ? A digital rectal exam. For this exam, a health care provider inserts a gloved finger into the rectum to feel the prostate gland. ? A blood test called a prostate-specific antigen (PSA) test. ? An imaging test called transrectal ultrasonography. ? A procedure in which a sample of tissue is taken from the prostate and examined under a microscope (prostate biopsy). Once the condition is diagnosed, tests will be done to determine how far the cancer has spread. This is called staging the cancer. Staging may involve imaging tests, such as: ? A bone scan. ? A CT scan. ? A PET scan. ? An MRI. The stages of prostate cancer are as follows: ? Stage I. At this stage, the cancer is found in the prostate only. The cancer is not visible on imaging tests and it is usually found by accident, such as during a prostate surgery. ? Stage II. At this stage, the cancer is more advanced than it is in stage I, but the cancer has not spread outside the prostate. ? Stage III. At this stage, the cancer has spread beyond the outer layer of the prostate to nearby tissues. The cancer may be found in the seminal vesicles, which are near the bladder and the prostate. ? Stage IV. At this stage, the cancer has spread other parts of the body, such as the lymph nodes, bones, bladder, rectum, liver, or lungs. How is this treated? Treatment for this condition depends on several factors, including the stage of the cancer, your age, personal preferences, and your overall health. Talk with your health care provider about treatment options that are recommended for you. Common treatments include: ? Observation for early stage prostate cancer (active surveillance). This involves having exams, blood tests, and in some cases, more biopsies. For some men, this is the only treatment needed. ? Surgery. Types of surgeries include: ? Open surgery. In this surgery, a larger incision is made to remove the prostate. ? A laparoscopic prostatectomy. This is a surgery to remove the prostate and lymph nodes through several, small incisions. It is often referred to as a minimally invasive surgery. ? A robotic prostatectomy. This is a surgery to remove the prostate and lymph nodes with the help of a robotic arm that is controlled by a computer. ? Orchiectomy. This is a surgery to remove the testicles. ? Cryosurgery. This is a surgery to freeze and destroy cancer cells. ? Radiation treatment. Types of radiation treatment include: ? External beam radiation. This type aims beams of radiation from outside the body at the prostate to destroy cancerous cells. ? Brachytherapy. This type uses radioactive needles, seeds, wires, or tubes that are implanted into the prostate gland. Like external beam radiation, brachytherapy destroys cancerous cells. An advantage is that this type of radiation limits the damage to surrounding tissue and has fewer side effects. ? High-intensity, focused ultrasonography. This treatment destroys cancer cells by delivering high-energy ultrasound waves to the cancerous cells. ? Chemotherapy medicines. This treatment kills cancer cells or stops them from multiplying. ? Hormone treatment. This treatment involves taking medicines that act on one of the male hormones (testosterone): ? By stopping your body from producing testosterone. ? By blocking testosterone from reaching cancer cells. Follow these instructions at home: ? Take divi-nto-hkeplmh and prescription medicines only as told by your health care provider. ? Maintain a healthy diet. ? Get plenty of sleep. ? Consider joining a support group for men who have prostate cancer. Meeting with a support group may help you learn to cope with the stress of having cancer. ? Keep all follow-up visits as told by your health care provider. This is important. ? If you have to go to the hospital, notify your cancer specialis (more content not included)... Normal [facility] Urology Office/Clinic Noteon 05-24-2022 Urology Office/Clinic Note Chief Complaint nocturia and urge incontinence at night HPI Staff Previous dx of prostate cancer (EBRT and Brachytherapy 05/22/2020), BPH with urinary obstruction and asymptomatic microhematuria. Pt has been having more extreme nocturia for the past 2 months. He is getting up 3-5x a night and completely soaks his depends. Pt continues taking Trospium 20mg BID. Dysuria: no Incomplete bladder emptying: less than 1 in 5x Hematuria: no Frequency: less than half of the time Urgency: less than half of the time Nocturia: 3-4x Stream: no straining or intermittency Leaking: very little Post void dripping: yes Wearing pads/ Depends: wears depends and is changing 2x daily unless he has a bad night and then it is multiple times Urge incontinence: only at night, he is fine during the day Stress incontinence: no Incontinence without Sensory Awareness: no Abdominal pain: no Flank pain: no Sexual complaints: no History of Present Illness Tests reviewed: reviewed UA. I have reviewed the previous health record information and history for this patient from Dr. Rodríguez. I have reviewed and verified the staff HPI to be accurate for this encounter. There have been no associated fever, chills, flank pain, or blood in the urine. Denies any urinary infections since last encounter. Review of Systems PHQ Score Initial Depression Screen Score: 0 ROS - Provider Constitutional: denies weight loss, denies hot flashes. Eyes: denies eye problems. Gastrointestinal: denies nausea, denies vomiting. Cardiovascular: denies chest pain or angina. Integumentary: no dryness Musculoskeletal: denies musculoskeletal symptoms. ENMT: denies otolaryngeal symptoms. Respiratory: no shortness of breath. Heme/Lymph: denies easy bleeding tendency, denies easy bruising tendency. Psychiatric: no confusion, no anxiety. Genitourinary: See HPI. Pt's acted as chief historian for this visit due to pt's Alzheimer's. Physical Exam Vitals & Measurements HR: 70(Peripheral) RR: 16 BP: 136/87 HT: 69 in HT: 175 cm WT: 93.7 kg WT: 206.14 lb BMI: 30.6 General Appearance: alert, no distress, well nourished, well developed male. Genitourinary: normal scrotum, normal testes, normal urethra, normal epididymis, normal vas deferens/spermatic cord. Flank Pain: none. Bladder: nonpalpable. Assessment/Plan Pt's acted as chief historian for this visit due to pt's Alzheimer's. 1. Nocturia (R35.1: Nocturia) UA today shows small blood (trace-intact). PVR 05/07/21 - 10 cc. Taking Trospium 20 mg BID. Pt has been having more extreme nocturia for the past 2 months. He is getting up 3-5x a night to urinate and completely soaks his depends. Voids q2hr during the day, no accidents. Discussed the possibility of infection and trying new bladder med. Has tried Oxybutynin in the past. Will tx as if infected. If sxs do not resolve after abx course, will consider trying new bladder med. Admits to drinking a lot of Coke all day. Educated pt and on bladder irritants. Denies any known med allergies. Follow up 6 mos with PSA or sooner if needed. Pt understands and agrees with plan. -Bactrim DS BID x 10 days. Take with food. Rx sent to [facility]. -Limit caffein containing fluids after 6 pm 2. Enuresis (R32: Unspecified urinary incontinence) See #1. 3. Prostate cancer (C61: Malignant neoplasm of prostate) PSA: 12/11/20 - 0.05 03/19/21 - 0.05 10/09/21 - <0.13 04/17/22 - <0.13 TRUS/bx 12/31/19. G6 (3+3) in 3/5 cores. G7 (3+4) in 1 core. G7 (4+3) in 1 core. EBRT 03/12/20 - 04/21/20. Brachytherapy 05/22/20. PSA remains low and stable. Will continue to monitor. 4. BPH with urinary obstruction (N40.1: Benign prostatic hyperplasia with lower urinary tract symptoms) IPSS 13 (15). 5. Asymptomatic microscopic hematuria (R31.21: Asymptomatic microscopic hematuria) FISH/cytol 06/03/21 - Neg. CT AP w/wo con 06/23/21 - No acute abdominal or pelvic findings. Normal kidneys. Cysto 06/29/21 - The prostatic urethra was strikingly abnormal, lateral lobe obstruction. Evidence of hematoma formation within the lateral lobes more on the right than left. (Cancelled Uros 07/21/21). UA today shows small blood (trace-intact). Follow-up With When Contact Information Armin RODRÍGUEZ MD, URL [facility] [address] [place] [address]- Additional Instructions: 6 mos with PSA Patient Education Prostate Cancer I, Rubi Eason, personally scribed for Dr. Rodríguez on 05/24/2022 10:49:10. . Documentation recorded by the scribe, Rubi Eason, accurately reflects the services(s) I performed and decisions made by me. Authenticated by Dr. Rodríguez on 05/24/2022 10:53:18. Problem List/Past Medical History Ongoing Asymptomatic microscopic hematuria BPH with urinary obstruction Chronic headaches Depression Elevated PSA Enuresis Hypertension Nocturia Prostate cance (more content not included)... Normal [facility] Comment on above: Result Comment: Elec tronically Signed By: Armin RODRÍGUEZ MD\.br\Date and Time Signed: 05/24/22 10:53 EDT\.br\Electronically Co-Signed By: Rubi Eason\.br\Date and Time Co-Signed: 05/24/22 10:49 EDT Lipid Panelon 04-22-2022 Lipid Panel [employer] Other Basic Metabolic Panelon 04-01 Basic Metabolic Panel [employer] Other CBC AUTO DIFFon 04-20-2022 BASO # 0.0 103/ul Normal 0.0-0.1 [facility] Comment on above: Performed By: #### C BC #### [facility] [address] [address] [address] Nitin Harris Basophils/100 WBC (Bld) 1.2 % Normal 0.2-2.0 [facility] Comment on above: Performed By: #### C BC #### [facility] [address] [place] [address] Dr. Nitin Harris EO # 0.2 103/ul Normal 0.0-0.7 [facility] Comment on above: Performed By: #### C BC #### [facility] [address] [place] [address] Dr. Nitin Harris Eosinophils/100 WBC (Bld) 4.6 % Normal 0.9-7.0 [facility] Comment on above: Performed By: #### C BC #### [facility] [address] [place] [address] Dr. Nitin Harris Erythrocyte distribution width (RBC) [Ratio] 12.7 % Normal 11.0-15.0 [facility] Comment on above: Performed By: #### C BC #### [facility] [address] [place] [address] Dr. Nitin Harris Hematocrit (Bld) [Volume fraction] 40.5 % Critically low 42.0-54.0 [facility] Comment on above: Performed By: #### C BC #### [facility] [address] [place] [address] Dr. Nitin Harris Hemoglobin (Bld) [Mass/Vol] 13.7 g/dL Critically low 14.0-18.0 [facility] Comment on above: Performed By: #### C BC #### [facility] [address] [place] [address] Dr. Nitin Harris IG # 0.01 10e3/ul Normal 0.00-0.03 [facility] Comment on above: Performed By: #### C BC #### [facility] [address] [place] [address] Dr. Nitin Harris IG % 0.3 % Normal 0.0-0.5 [facility] Comment on above: Performed By: #### C BC #### [facility] [address] [address] [address] Nitin Harris LYMPH # 0.7 103/ul Critically low 1.2-3.8 [facility] Comment on above: Performed By: #### C BC #### [facility] [address] [address] [address] Nitin Harris Lymphocytes/100 WBC (Bld) 20.5 % Normal 20.5-60.0 [facility] Comment on above: Performed By: #### C BC #### [facility] [address] [place] [address] Dr. Nitin Harris MANUAL DIFF REQ NO Normal [facility] Comment on above: Performed By: #### C BC #### [facility] [address] [place] [address] Dr. Nitin Harris MCH (RBC) [Entitic mass] 28.7 pg Normal 25.9-34.0 [facility] Comment on above: Performed By: #### C BC #### [facility] [address] [place] [address] Dr. Nitin Harris MCHC (RBC) [Mass/Vol] 33.8 g/dL Normal 29.9-35.2 [facility] Comment on above: Performed By: #### C BC #### [facility] [address] [place] [address] Dr. Nitin Harris MCV (RBC) [Entitic vol] 84.9 fL Normal 80.0-94.0 [facility] Comment on above: Performed By: #### C BC #### [facility] [address] [place] [address] Dr. Nitin Harris MONO # 0.3 103/ul Normal 0.3-0.8 [facility] Comment on above: Performed By: #### C BC #### [facility] [address] [place] [address] Dr. Nitin Harris Monocytes/100 WBC (Bld) 7.8 % Normal 1.7-12.0 [facility] Comment on above: Performed By: #### C BC #### [facility] [address] [address] [address] Nitin Harris NEUT # 2.3 103/ul Normal 1.4-6.5 [facility] Comment on above: Performed By: #### C BC #### [facility] [address] [address] [address] Nitin Harris Neutrophils/100 WBC (Bld) 65.6 % Normal 43.0-75.0 [facility] Comment on above: Performed By: #### C BC #### [facility] [address] [address] [address] Nitin Harris Platelet mean volume (Bld) [Entitic vol] 8.0 fL Critically low 9.5-13.5 [facility] Comment on above: Performed By: #### C BC #### [facility] [address] [place] [address] Dr. Nitin Harris PLT 209 103/ul Normal 150-450 [facility] Comment on above: Performed By: #### C BC #### [facility] [address] [address] [address] Nitin Harris RBC 4.77 106/ul Normal 4.70-6.10 [facility] Comment on above: Performed By: #### C BC #### [facility] [address] [address] [address] Nitin Harris WBC 3.5 103/ul Critically low 4.0-11.0 [facility] Comment on above: Performed By: #### C BC #### [facility] [address] [address] [address] Nitin Harris Complete Blood Count and Dif [place] 04-20-2022 Anisocytosis Ql (Bld) [employer] Other Basophilic stippling LM Ql (Bld) [employer] Other RBC morphology finding Nom (Bld) [employer] Other FERRITINon 04-20-2022 Ferritin [Mass/Vol] 65.0 ng/mL Normal 26.0-388.0 [facility] Comment on above: Performed By: #### B 12FOL, FETIBC, FERR ####[facility] [id number] [id number][address] Nitin Harris IRON AND TIBCon 04-20-2022 % SATURATION 21.7 % Normal [facility] Comment on above: Performed By: #### B 12FOL, FETIBC, FERR ####[facility] [address] [address]Dr. Nitin Harris Iron [Mass/Vol] 61.0 ug/dL Critically low 65.0-175.0 [facility] Comment on above: Performed By: #### B 12FOL, FETIBC, FERR ####[facility] [id number] [address]Dr. Nitin Harris TIBC DIRECT 281.0 ug/dL Normal 250.0-450.0 [facility] Comment on above: Performed By: #### B 12FOL, FETIBC, FERR ####[facility] [id number] [id number]. Nitin Harris LIPID PROFILEon 04-20-2022 CHOL-HDL RATIO NORM SEE BELOW Normal [facility] Comment on above: Result Comment: 3.3 - 4.4 LOW RISK 4.4 - 7.1 AVERAGE RISK 7.1 - 11.0 MODERATE RISK >11.0 HIGH RISK Performed By: #### B MP, LIPID #### [facility] [address] [address] [address] Nitin Harris Cholesterol [Mass/Vol] 180 mg/dL Normal <=200 [facility] Comment on above: Performed By: #### B MP, LIPID #### [facility] [address] [address] [address] Nitin Harris Cholesterol in HDL [Mass/Vol] 39 mg/dL Critically low 40-60 [facility] Comment on above: Performed By: #### B MP, LIPID #### [facility] [address] [address] [address] Nitin Harris Cholesterol in LDL [Mass/Vol] 119.8 mg/dL Normal [facility] Comment on above: Performed By: #### B MP, LIPID #### [facility] [address] [address] [address] Nitin Harris Cholesterol.total/ Cholesterol in HDL [Mass ratio] 4.6 {ratio} Normal [facility] Comment on above: Performed By: #### B MP, LIPID #### [facility] [address] [address] [address] Nitin Harris HDL NORMAL > or = 60 mg/dl - LOW CARDIOVASCULAR RISK <40 mg/dl - HIGH CARDIOVASCULAR RISK Normal [facility] Comment on above: Performed By: #### B MP, LIPID #### [facility] [address] [place] [address] Dr. Nitin Harris LDL CALC NORMAL SEE BELOW Normal [facility] Comment on above: Result Comment: <100 mg/dl OPTIMAL 100 - 129 mg/dl NEAR OR ABOVE OPTIMAL 130 - 159 mg/dl BORDERLINE HIGH 160 - 189 mg/dl HIGH >190 mg/dl VERY HIGH Performed By: #### B MP, LIPID #### [facility] [address] [place] [address] Dr. Nitin Harris Triglyceride [Mass/Vol] 106 mg/dL Normal <=150 [facility] Comment on above: Performed By: #### B MP, LIPID #### [facility] [address] [place] [address] Dr. Nitin Harris VLDL CALC 21.2 mg/dL Normal [facility] Comment on above: Performed By: #### B MP, LIPID #### [facility] [address] [place] [address] Dr. Nitin Harris PROF CHEM 8 (BAS METB)on Anion gap [Moles/Vol] 8.3 mmol/L Normal [facility] Comment on above: Performed By: #### B MP, LIPID #### [facility] [address] [place] [address] Dr. Nitin Harris Calcium [Mass/Vol] 9.4 mg/dL Normal 8.5-10.1 [facility] Comment on above: Performed By: #### B MP, LIPID #### [facility] [address] [address] [address] Nitin Harris Chloride [Moles/Vol] 102 mmol/L Normal 98-107 [facility] Comment on above: Performed By: #### B MP, LIPID #### [facility] [address] [address] [address] Nitin Harris CO2 [Moles/Vol] 30.2 mmol/L Normal 21.0-32.0 [facility] Comment on above: Performed By: #### B MP, LIPID #### [facility] [address] [address] [address] Nitin Harris Creatinine [Mass/Vol] 0.93 mg/dL Normal 0.70-1.30 [facility] Comment on above: Performed By: #### B MP, LIPID #### [facility] [address] [place] [address] Dr. Nitin Harris EGFR-AF MOROCCAN >60 Normal >=60 [facility] Comment on above: Performed By: #### B MP, LIPID #### [facility] [address] [address] [address] Nitin Harris EGFR-NON AF MOROCCAN >60 Normal >=60 [facility] Comment on above: Performed By: #### B MP, LIPID #### [facility] [address] [address] [address] Nitin Harris Glucose [Mass/Vol] 96 mg/dL Normal 74-106 [facility] Comment on above: Performed By: #### B MP, LIPID #### [facility] [address] [address] [address] Nitin Harris Potassium [Moles/Vol] 4.5 mmol/L Normal 3.5-5.1 [facility] Comment on above: Performed By: #### B MP, LIPID #### [facility] [address] [place] [address] Dr. Nitin Harris Sodium [Moles/Vol] 136 mmol/L Normal 136-145 [facility] Comment on above: Performed By: #### B MP, LIPID #### [facility] [address] [address] [address] Nitin Harris Urea nitrogen [Mass/Vol] 12.0 mg/dL Normal 7.0-18.0 [facility] Comment on above: Performed By: #### B MP, LIPID #### [facility] [address] [place], [place] [address] Dr. Nitin Harris Urea nitrogen/Creatinin e [Mass ratio] 12.9 mg/mg Normal [facility] Comment on above: Performed By: #### B MP, LIPID #### [facility] [address] [place], [place] [address] Dr. Nitin Harris VIT B12 AND FOLATEon 023 Cobalamin (Vitamin B12) [Mass/Vol] 810.0 pg/mL Normal 193.0-986.0 [facility] Comment on above: Performed By: #### B 12FOL, FETIBC, FERR ####[facility] [address] [place], [place] [address]TbDr. Nitin Harris FOLATE 3.50 ng/mL Critically low 8.60-58.90 [facility] Comment on above: Performed By: #### B 12FOL, FETIBC, FERR ####[facility] [address] [id number]. Nitin Parnell [facility] TAMMY ROWLAND ([id number]) 1955 M Date Time Provider Department 04/19/22 Joann THOMAS During your visit today, we recorded the following information about you: Maritza Sanchez, RN 04/19/2022 9:00 AM Signed Call placed to pts due to PSA result coming over from [facility]. This should have been done prior to Jan 2023 appt instead of now. states he has had some issues with his eyes and the inspection engineer wanted them to have this checked with the other blood panel they ordered. MIKAELA- please sign new pended PSA order and we will mail to pt so they can have drawn prior to January visit. [facility] Jessica RN 04/19/2022 11:57 AM Signed New order mailed to pt. Maritza Sanchez RN Allergies As of Date: 04/19/2022 Noted Allergy Reaction HAY FEVER (SEASONAL ALLERGIES) 01/04/2017 16 - Unknown Date Reviewed: 02/09/2022 Reviewed by: Maritza Sanchez RN - Fully Assessed Reason for Visit: Lab Orders [1688] Primary Visit Diagnosis:Malignant neoplasm of prostate (HCC) [C61] Order(s):PSA/PROSTSP ECAG DIAG [SQPSA] Order #: [id number] FUTURE Prescriptions as of 04/19/2022 - memantine (NAMENDA) 10 mg tablet Take 1 tablet by mouth twice daily. - donepezil (ARICEPT) 10 mg tablet TAKE 1 TABLET BY MOUTH EVERY DAY - trospium (SANCTURA) 20 mg tablet Take 20 mg by mouth. - iv contrast (will be provided with radiology test) MRI Pelvis Inject, intravenously, once for 1 dose. No IV access, insert saline lock prior to the beginning of sedation, infusion, injection of imaging exam. Discontinue saline lock post exam. If Pt has a central line or IVAD, may access for administration according to line specific nursing protocol. Once exam is complete flush line and de-access according to line specific nursing protocol in the MR contrast administration guidelines link. - escitalopram oxalate (LEXAPRO) 20 mg tablet Take 20 mg by mouth daily at bedtime. - benazepril (LOTENSIN) 5 mg tablet Take 5 mg by mouth once daily. - Omeprazole 40 mg capsule Take 40 mg by mouth once daily. - aspirin, enteric coated (ASPIRIN, ENTERIC COATED) 81 mg EC tablet Take 81 mg by mouth once daily. - Jgrroluc-Louq-Gau-Fo lic Acid (CENTRUM) 3,500-18-0.4 unit-mg-mg chewable tablet Take 1 tablet by mouth every other day. Taking 1 tablet every other day Problem List As Of Date 04/19/2022 Noted Resolved Marcus's esophagus without dysplasia [K22.70] 12/30/2017 Duodenitis without bleeding [K29.80] 12/30/2017 Diaphragmatic hernia without obstruction or shayne*12/30/2017 Essential (primary) hypertension [I10] 05/03/2017 Hematemesis [K92.0] 12/30/2017 Headache [R51.9] 12/30/2017 Mild cognitive impairment [G31.84] 12/30/2017 Other intraarticular fracture of lower end of r*12/30/2017 Major depressive disorder, single episode, unsp*01/07/2020 Prostate cancer (HCC) [C61] 01/20/2021 Encounter Status:Closed by MARITZA SANCHEZ on 04/19/22 Normal [facility] BNPon 09-14-2021 Natriuretic peptide B (Bld) [Mass/Vol] 147.0 pg/mL Normal <=900.0 [facility] Comment on above: Performed By: #### C MADM, LIPA, CMP, BNP ####[facility] [address] [place] [address]Dr. Nitin Harris CARDIAC KAYCEE ADMITon 022 CK [Catalytic activity/Vol] 163 U/L Normal 39-308 [facility] Comment on above: Performed By: #### C MADM, LIPA, CMP, BNP ####[facility] [address] [place] [address]Dr. Nitin Harris CK.MB [Mass/Vol] 1.64 ng/mL Normal <=3.60 [facility] Comment on above: Performed By: #### C MADM, LIPA, CMP, BNP ####[facility] [address] [place] [address]Dr. Nitin Harris HSTROP 7.4 pg/mL Normal 4.0-76.1 [facility] Comment on above: Result Comment: CUT- OFF POINTS HAVE BEEN ESTABLISHED BASED ON THE FOURTH UNIVERSAL DEFINITIONS OF MYOCARDIAL INFARCTION. THE UPPER REFERENCE LIMIT (URL) OF TROPONIN, DEFINED THE 99TH PERCENTILE OF cTnI DISTRIBUTION IN A REFERENCE POPULATION, HAS BEEN CONFIRMED THE DECISION THRESHOLD FOR [place] DIAGNOSIS. Performed By: #### C MADM, LIPA, CMP, BNP ####[facility] [address] [place] [address]Dr. Nitin Harris FILIBERTO 63 ng/mL Normal 16-96 [facility] Comment on above: Performed By: #### C MADM, LIPA, CMP, BNP ####[facility] [address] [place] [address]Dr. Nitin Harris CBC AUTO DIFFon 09-14-2021 BASO # 0.0 103/ul Normal 0.0-0.1 [facility] Comment on above: Performed By: #### C BC ####[facility] [address] [place] [id number]. Nitin Steven Basophils/100 WBC (Bld) 1.0 % Normal 0.2-2.0 [facility] Comment on above: Performed By: #### C BC ####[facility] [address] [place], [place] [address]Dr. Nitin Harris EO # 0.1 103/ul Normal 0.0-0.7 [facility] Comment on above: Performed By: #### C BC ####[facility] [address] [place] [address]Dr. Nitin Harris Eosinophils/100 WBC (Bld) 2.9 % Normal 0.9-7.0 [facility] Comment on above: Performed By: #### C BC ####[facility] [address] [place] [address]Dr. Nitin Harris Erythrocyte distribution width (RBC) [Ratio] 13.6 % Normal 11.0-15.0 [facility] Comment on above: Performed By: #### C BC ####[facility] [address] [place], [place] [address]Dr. Nitin Harris Hematocrit (Bld) [Volume fraction] 38.0 % Critically low 42.0-54.0 [facility] Comment on above: Performed By: #### C BC ####[facility] [address] [place], [place] [address]Dr. Nadianava Harris Hemoglobin (Bld) [Mass/Vol] 12.8 g/dL Critically low 14.0-18.0 [facility] Comment on above: Performed By: #### C BC ####[facility] [address] [place] [address]Dr. Nitin Harris IG # 0.00 10e3/ul Normal 0.00-0.03 [facility] Comment on above: Performed By: #### C BC ####[facility] [address] [place] [address]Dr. Nitin Harris IG % 0.0 % Normal 0.0-0.5 [facility] Comment on above: Performed By: #### C BC ####[facility] [address] [place] [address]Dr. Nadianava Harris LYMPH # 0.8 103/ul Critically low 1.2-3.8 [facility] Comment on above: Performed By: #### C BC ####[facility] [address] [place] [address]Dr. Nitin Harris Lymphocytes/100 WBC (Bld) 20.6 % Normal 20.5-60.0 [facility] Comment on above: Performed By: #### C BC ####[facility] [address] [place] [address]Dr. Nadianava Harris MANUAL DIFF REQ NO Normal [facility] Comment on above: Performed By: #### C BC ####[facility] [address] [place] [address]Dr. Nitin Steven MCH (RBC) [Entitic mass] 28.1 pg Normal 25.9-34.0 [facility] Comment on above: Performed By: #### C BC ####[facility] [address] [place], [place] [address]Dr. Nitin Harris MCHC (RBC) [Mass/Vol] 33.7 g/dL Normal 29.9-35.2 [facility] Comment on above: Performed By: #### C BC ####[facility] [address] [place] [address]Dr. Nitin Steven MCV (RBC) [Entitic vol] 83.5 fL Normal 80.0-94.0 [facility] Comment on above: Performed By: #### C BC ####[facility] [address] [place] [address]Dr. Nitin Harris MONO # 0.3 103/ul Normal 0.3-0.8 [facility] Comment on above: Performed By: #### C BC ####[facility] [address] [place] [address]Dr. Nitin Harris Monocytes/100 WBC (Bld) 7.6 % Normal 1.7-12.0 [facility] Comment on above: Performed By: #### C BC ####[facility] [address] [place] [address]Dr. Nitin Harris NEUT # 2.6 103/ul Normal 1.4-6.5 [facility] Comment on above: Performed By: #### C BC ####[facility] [address] [place] [address]Dr. Nitin Harris Neutrophils/100 WBC (Bld) 67.9 % Normal 43.0-75.0 [facility] Comment on above: Performed By: #### C BC ####[facility] [address] [place] [address]Dr. Nitin Harris Platelet mean volume (Bld) [Entitic vol] 8.4 fL Critically low 9.5-13.5 [facility] Comment on above: Performed By: #### C BC ####[facility] [address] [place] [address]Dr. Nitin Harris PLT 216 103/ul Normal 150-450 [facility] Comment on above: Performed By: #### C BC ####[facility] [address] [place] [address]Dr. Nitin Harris RBC 4.55 106/ul Critically low 4.70-6.10 [facility] Comment on above: Performed By: #### C BC ####[facility] [address] [place] [address]Dr. Nitin Harris WBC 3.8 103/ul Critically low 4.0-11.0 The [facility] Comment on above: Performed By: #### C BC ####[facility] [address] [place] [address] Harris CT HEAD WO CONon 09-14-2021 CT HEAD WO CON EXAMINATION: CT HEAD WO CON HISTORY: NAUSEA WITH VOMITING, UNSPECIFIED COMPARISON: 05/18/2021 TECHNIQUE: CT examination of the head without IV contrast. Dose reduction techniques were achieved by using automated exposure control and/or adjustment of mA and/or kV according to patient size and/or use of iterative reconstruction technique. FINDINGS: No acute intracranial hemorrhage. No acute loss of white/white differentiation. The ventricles and sulci are prominent due to chronic global parenchymal volume loss. The osseous structures are unremarkable. No soft tissue abnormality identified. The paranasal sinuses and mastoid air cells are clear. IMPRESSION: 1. No acute intracranial abnormality. 2. Age-related atrophy. Electronically authenticated by: KEVIN CHOWDHURY Date: 2021-09-14 14:48 Normal [facility] LIPASEon 09-14-2021 Lipase [Catalytic activity/Vol] 119.0 U/L Normal 73.0-393.0 [facility] Comment on above: Performed By: #### C MADM, LIPA, CMP, BNP ####[facility] [address] [place] [address]Dr. Nitin Harris PH VENOUS BLOODon 09-14-2021 PCO2 VENOUS 33.0 mmHg Critically low 40.0-52.0 [facility] Comment on above: Performed By: #### P HVEN #### [facility] [address] [place] [address] [address] Nitin Harris pH VENOUS 7.520 Critically high 7.330-7.430 [facility] Comment on above: Performed By: #### P HVEN #### [facility] [address] [address] [address] Nitin Harris PROF 14(COMP METB)on 022 Albumin [Mass/Vol] 3.7 g/dL Normal 3.4-5.0 [facility] Comment on above: Performed By: #### C MADM, LIPA, CMP, BNP ####[facility] [address] [place] [address]DrJewell Harris Albumin/Globulin [Mass ratio] 1.2 {ratio} Normal [facility] Comment on above: Performed By: #### C MADM, LIPA, CMP, BNP ####[facility] [address] [place] [address]Dr. Nitin Harris ALP [Catalytic activity/Vol] 99 U/L Normal 46-116 [facility] Comment on above: Performed By: #### C MADM, LIPA, CMP, BNP ####[facility] [address] [place] [address]Dr. Nitin Harris ALT [Catalytic activity/Vol] 24 U/L Normal 16-63 [facility] Comment on above: Performed By: #### C MADM, LIPA, CMP, BNP ####[facility] [address] [place] [address]Dr. Nadianava Harris Anion gap [Moles/Vol] 12.6 mmol/L Normal [facility] Comment on above: Performed By: #### C MADM, LIPA, CMP, BNP ####[facility] [address] [place], [place] [address]Dr. Nitin Harris AST [Catalytic activity/Vol] 20 U/L Normal 15-37 [facility] Comment on above: Performed By: #### C MADM, LIPA, CMP, BNP ####[facility] [address] [place] [address]Dr. Nitin Harris Bilirubin [Mass/Vol] 0.5 mg/dL Normal 0.2-1.0 [facility] Comment on above: Performed By: #### C MADM, LIPA, CMP, BNP ####[facility] [address] [place] [address]Dr. Nitin Harris Calcium [Mass/Vol] 9.1 mg/dL Normal 8.5-10.1 [facility] Comment on above: Performed By: #### C MADM, LIPA, CMP, BNP ####[facility] [address] [place] [address]Dr. Nitin Harris Chloride [Moles/Vol] 102 mmol/L Normal 98-107 [facility] Comment on above: Performed By: #### C MADM, LIPA, CMP, BNP ####[facility] [address] [place] [address]Dr. Nitin Harris CO2 [Moles/Vol] 25.9 mmol/L Normal 21.0-32.0 [facility] Comment on above: Performed By: #### C MADM, LIPA, CMP, BNP ####[facility] [address] [place] [address]Dr. Nitin Harris Creatinine [Mass/Vol] 0.88 mg/dL Normal 0.70-1.30 [facility] Comment on above: Performed By: #### C MADM, LIPA, CMP, BNP ####[facility] [address] [place], [place] [address]Dr. Nitin Harris EGFR-AF MOROCCAN >60 Normal >=60 [facility] Comment on above: Performed By: #### C MADM, LIPA, CMP, BNP ####[facility] [address] [place], [place] [address]Dr. Nitin Harris EGFR-NON AF MOROCCAN >60 Normal >=60 [facility] Comment on above: Performed By: #### C MADM, LIPA, CMP, BNP ####[facility] [address] [place], [place] [address]Dr. Nitin Harris Globulin (S) [Mass/Vol] 3.2 g/dL Normal [facility] Comment on above: Performed By: #### C MADM, LIPA, CMP, BNP ####[facility] [address] [place] [address]Dr. Nitin Harris Glucose [Mass/Vol] 109 mg/dL Critically high 74-[address] [facility] Comment on above: Performed By: #### C MADM, LIPA, CMP, BNP ####[facility] [address] [place], [place] [address]Dr. Nitin Harris Potassium [Moles/Vol] 3.5 mmol/L Normal 3.5-5.1 [facility] Comment on above: Performed By: #### C MADM, LIPA, CMP, BNP ####[facility] [address] [place] [address]Dr. Nitin Harris Protein [Mass/Vol] 6.9 g/dL Normal 6.4-8.2 [facility] Comment on above: Performed By: #### C MADM, LIPA, CMP, BNP ####[facility] [address] [place] [address]Dr. Nitin Harris Sodium [Moles/Vol] 137 mmol/L Normal 136-145 [facility] Comment on above: Performed By: #### C MADM, LIPA, CMP, BNP ####[facility] [address] [place] [address]Dr. Nitin Harris Urea nitrogen [Mass/Vol] 14.0 mg/dL Normal 7.0-18.0 [facility] Comment on above: Performed By: #### C MADM, LIPA, CMP, BNP ####[facility] [address] [place] [address]Dr. Nitin Harris Urea nitrogen/Creatinin e [Mass ratio] 15.9 mg/mg Normal [facility] Comment on above: Performed By: #### C MADM, LIPA, CMP, BNP ####[facility] [address] [place] [address]Dr. Nitin Harris PROTIMEon 09-14-2021 INR Coag (PPP) [Relative time] 0.97 {INR} Normal [facility] Comment on above: Performed By: #### P T, PTT #### [facility] [address] [address] [address] Nitin Harris INR GUIDELINES SEE BELOW Normal [facility] Comment on above: Result Comment: PÉREZ RED INR: 2.0 - 3.0 CONDITIONS NOT LISTED BELOW 2.5 - 3.5 FOR PROSTHETIC HEART VALVE REPLACEMENT 2.5 - 3.5 RECURRENT THROMBOSIS Performed By: #### P T, PTT #### [facility] [address] [address] [address] Nitin Harris PT Coag (PPP) [Time] 10.5 s Normal 9.0-11.6 [facility] Comment on above: Performed By: #### P T, PTT #### [facility] [address] [place], [place] [address] Dr. Nitin Harris PTTon 09-14-2021 aPTT Coag (Bld) [Time] 30.1 s Normal 22.3-36.2 [facility] Comment on above: Performed By: #### P T, PTT #### [facility] [address] [place], [place] [address] Dr. Nitin Harris XR CHEST 1 Von 09-14-2021 XR CHEST 1 V EXAMINATION: XR CHEST 1 V HISTORY: NAUSEA WITH VOMITING, UNSPECIFIED COMPARISON: XR CHEST 05/18/2021 FINDINGS: LUNGS: VASCULATURE: No increased pulmonary vasculature. PLEURA: No pneumothorax, effusion, or pleural thickening. CARDIAC: No cardiomegaly or cardiac silhouette abnormality. MEDIASTINUM: No visible mass or adenopathy. BONES: No fracture or visible bone lesion. OTHER: Negative. IMPRESSION: 1. No acute cardiopulmonary process. Stable chest. Electronically authenticated by: JOSÉ CH Date: 2021-09-14 13:58 Normal [facility] Vital Signs Date Time Vital Sign Value Performing Clinician Facility 03-04-2023 11:34-0500 Blood Pressure Location Armin RODRÍGUEZ [facility] 03-04-2023 11:34-0500 Diastolic blood pressure 75 mm[Hg] Armin RODRÍGUEZ [facility] 03-04-2023 11:34-0500 Heart rate 61 /min Armin RODRÍGUEZ [facility] 03-04-2023 11:34-0500 Respiratory rate 16 /min Armin RODÍRGUEZ [facility] 03-04-2023 11:34-0500 Systolic blood pressure 137 mm[Hg] Armin RODRÍGUEZ [facility] 11-11-2022 15:03-0400 Body weight 91.63 kg Judit Hector ELECTRICAL SERVICE TECHNICIAN.[employer] Work Phone: [facility] 11-11-2022 15:03-0400 Diastolic blood pressure 81 mm[Hg] Judit Hector ELECTRICAL SERVICE TECHNICIAN.[employer]AGOT HEATER HELPER Work Phone: [facility] 11-11-2022 15:03-0400 Heart rate 60 /min Judit Hector ELECTRICAL SERVICE TECHNICIAN.[employer]AGOT HEATER HELPER Work Phone: [facility] 11-11-2022 15:03-0400 Systolic blood pressure 125 mm[Hg] Judit Hector ELECTRICAL SERVICE TECHNICIAN.FAGOT HEATER HELPER Work Phone: [facility] 11-03-2022 15:00-0400 Body height 175.26 cm Mike Ball Other [employer] Other 11-03-2022 15:00-0400 Body mass index (BMI) [Ratio] 29.95 kg/m2 Mike Ball Other [employer] Other 11-03-2022 15:00-0400 Body weight 91.99 kg Mike Ball Other [employer] Other 11-03-2022 15:00-0400 Diastolic blood pressure 83 mm[Hg] Mike Ball Other [employer] Other 11-03-2022 15:00-0400 Respiratory rate 12 /min Mike Ball Other [employer] Other 11-03-2022 15:00-0400 Systolic blood pressure 123 mm[Hg] Mike Ball Other [employer] Other 09-03-2022 10:30-0400 Body height 175.26 cm Mike Ball Other [employer] Other 09-03-2022 10:30-0400 Body mass index (BMI) [Ratio] 30.89 kg/m2 Mike Ball Other [employer] Other 09-03-2022 10:30-0400 Body weight 94.89 kg Mike Ball Other [employer] Other 09-03-2022 10:30-0400 Diastolic blood pressure 90 mm[Hg] Mike Ball Other [employer] Other 09-03-2022 10:30-0400 Respiratory rate 12 /min Mike Ball Other [employer] Other 09-03-2022 10:30-0400 Systolic blood pressure 135 mm[Hg] Mike Ball Other [employer] Other 05-24-2022 09:22-0400 Blood Pressure Location Armin RODRÍGUEZ [facility] 05-24-2022 09:22-0400 Diastolic blood pressure 87 mm[Hg] Armin RODRÍGUEZ [facility] 05-24-2022 09:22-0400 Heart rate 70 /min Armin RODRÍGUEZ [facility] 05-24-2022 09:22-0400 Respiratory rate 16 /min Armin RODRÍGUEZ [facility] 05-24-2022 09:22-0400 Systolic blood pressure 136 mm[Hg] Armin RODRÍGUEZ [facility] 04-05-2022 15:00-0500 Body height 175.26 cm Mike Ball Other [employer] Other 04-05-2022 15:00-0500 Body mass index (BMI) [Ratio] 31.86 kg/m2 Mike Ball Other [employer] Other 04-05-2022 15:00-0500 Body weight 97.89 kg Mike Ball Other [employer] Other 04-05-2022 15:00-0500 Diastolic blood pressure 74 mm[Hg] Mike Ball Other [employer] Other 04-05-2022 15:00-0500 Respiratory rate 12 /min Mike Ball Other [employer] Other 04-05-2022 15:00-0500 Systolic blood pressure 122 mm[Hg] Mike Ball Other [employer] Other 10-12-2021 14:33-0400 Blood Pressure Location Armin Blackford [employer] [facility] 10-12-2021 14:33-0400 Diastolic blood pressure 97 mm[Hg] Armin RODRÍGUEZ [facility] 10-12-2021 14:33-0400 Heart rate 56 /min Armin RODRÍGUEZ [facility] 10-12-2021 14:33-0400 Respiratory rate 16 /min [facility] 10-12-2021 14:33-0400 Systolic blood pressure 147 mm[Hg] Armin RODRÍGUEZ [facility] 07-21-2021 13:20-0400 Body temperature 97.59 [degF] ANA Thomas MD Work Phone: [facility] 07-21-2021 13:20-0400 Body weight 95.53 kg ANA Thomas MD Work Phone: [facility] 07-21-2021 13:20-0400 Diastolic blood pressure 80 mm[Hg] ANA Thomas MD Work Phone: [facility] 07-21-2021 13:20-0400 Heart rate 59 /min ANA Thomas MD Work Phone: [facility] 07-21-2021 13:20-0400 Respiratory rate 16 /min ANA Thomas MD Work Phone: [facility] 07-21-2021 13:20-0400 SaO2% (BldA) [Mass fraction] 97 % ANA Thomas MD Work Phone: [facility] 07-21-2021 13:20-0400 Systolic blood pressure 123 mm[Hg] ANA Thomas MD Work Phone: [facility] Encounters Encounter Date Encounter Type Care Provider Facility Start: 09-05-2023 ambulatory Armin Hung ty:CARLOS ALBERTO Rmue Start: 03-04-2023 End: 03-05-2023 ambulatory Armin RODRÍGUEZ Facility:[facility] Start: 03-04-2023 End: 03-04-2023 Patient encounter procedure Armin RODRÍGUEZ [facility] Start: 03-02-2023 End: 03-02-2023 ambulatory Joann THOMAS Facility:[facility] Start: 02-10-2023 End: 02-10-2023 ambulatory JUDIT HECTOR Facility:[facility] Start: 02-10-2023 End: 02-10-2023 [facility] [place] [facility] Judit Hector ELECTRICAL SERVICE TECHNICIAN.FAGOT HEATER HELPER Work Phone: Neurology Comment on above: 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); Expressive language impairment; Irritability and anger; Visuospatial deficit; Bowel and bladder incontinence; Major depressive disorder, single episode, mild (HCC); Transient alteration of awareness Start: 02-08-2023 Telephone encounter Judit browning APRN.FAGOT HEATER HELPER Work Phone: Neurology Comment on above: Patient Update (Naresh ge in condition) Start: 11-29-2022 End: 11-29-2022 ambulatory Mike Fay Other [employer] Other Start: 11-29-2022 Telephone encounter Mike Fay G [facility] Start: 11-19-2022 End: 11-19-2022 ambulatory Mike Fay Other [employer] Other Start: 11-19-2022 Nursing evaluation o f patient and report Mike Fay [facility] Start: 11-19-2022 Telephone encounter Judit browning APRN.[employer]OT HEATER HELPER Work Phone: Neurology Comment on above: Behavioral Health Clinician - O ther Start: 11-11-2022 End: 11-11-2022 ambulatory JUDIT HECTOR Facility:[facility] Start: 11-11-2022 End: 11-11-2022 Patient encounter procedure Judit Hector APRN.[employer]AGOT HEATER HELPER Work Phone: Neurology Comment on above: Early onset Alzheime r's disease without behavioral disturbance (HCC) (Primary Dx); Expressive language impairment; Visual field defect; Bowel and bladder incontinence; Irritability and anger; Transient cerebral ischemia, unspecified type; MCI (mild cognitive impairment) Start: 11-03-2022 End: 11-03-2022 ambulatory Mike Fay Other [employer] Other Start: 11-03-2022 Patient encounter procedure Mike Fay [facility] Start: 09-03-2022 End: 09-03-2022 ambulatory Mike Fay Other [employer] Other Start: 09-03-2022 Transitional care matt presley srvc 14 day discharge Mike COOK [facility] Start: 08-30-2022 End: 08-30-2022 ambulatory Mike Fay Other [employer] Other Start: 08-30-2022 Telephone encounter [facility] Start: 08-18-2022 End: 08-18-2022 ambulatory Mike Fay Other [employer] Other Start: 08-18-2022 Nursing evaluation o f patient and report Mike Fay [facility] Start: 07-05-2022 Refill Judit Aniket johnson ELECTRICAL SERVICE TECHNICIAN.[employer]AGOT HEATER HELPER Work Phone: Neurology Comment on above: Refill Request Start: 06-17-2022 Refill Judit Aniket johnson ELECTRICAL SERVICE TECHNICIAN.FAGOT HEATER HELPER Work Phone: Neurology Comment on above: Refill Request Start: 06-16-2022 Telephone encounter Mike David [facility] Start: 06-16-2022 End: 06-16-[address] BRIELLE GANDHI . [employer] Other Start: 05-31-2022 ambulatory Armin RODRÍGUEZ Facili ty:CARLOS ALBERTO [facility] Start: 05-26-2022 End: 05-26-2022 ambulatory Mike Fay Other [facility] [employer] Other Start: 05-26-2022 Telephone encounter [facility] Start: 05-24-2022 End: 05-25-2022 ambulatory Armin RODRÍGUEZ Facility:[facility] Start: 05-24-2022 End: 05-24-2022 Patient encounter procedure Armin RODRÍGUEZ [facility] Start: 05-21-2022 End: 05-21-2022 ambulatory Mike Fay Other [employer] Other Start: 05-21-2022 Nursing evaluation o f patient and report Mike Fay [facility] Start: 04-21-2022 End: 04-21-2022 [facility] Judit Hector APRN.FAGOT HEATER HELPER Work Phone: Neurology Comment on above: Early onset Alzheime r's disease without behavioral disturbance (HCC) (Primary Dx); Expressive language impairment; Visual field defect; Bowel and bladder incontinence; Major depressive disorder, single episode, mild (HCC) Start: 04-20-2022 End: 04-21-[address] MIKE FAY [employer] Other Start: 04-20-2022 Telephone encounter Mike Fay [facility] Start: 04-17-2022 End: 04-18-[address] TRINA THOMAS Facility:[facility] Start: 04-05-2022 End: 04-05-2022 ambulatory Mike Fay Other [employer] Other Start: 04-05-2022 Office outpatient vi sit 25 minutes Mike Fay [facility] Start: 01-18-2022 End: 01-19-[address] TRINA THOMAS Facility:[facility] Start: 01-18-2022 Telephone encounter Joann Thomas MD Work Phone: Radiation Oncology Comment on above: Lab Orders Start: 12-14-2021 Refill Judit johnson APRN.[employer]AGOT HEATER HELPER Work Phone: Neurology Comment on above: Refill Request Start: 10-12-2021 End: 10-12-2021 Patient encounter procedure Armin RODRÍGUEZ [facility] Start: 10-09-2021 End: 10-10-[address] ARMIN RODRÍGUEZ . Facility:[facility] Start: 09-14-2021 End: 09-14-[address] TOMMY RAIN . Facility:[facility] Start: 09-03-2021 End: 09-03-2021 ambulatory Judit Hector APRN.FAGOT HEATER HELPER Work Phone: Neurology Comment on above: Early onset Alzheime r's disease without behavioral disturbance (HCC) (Primary Dx); Expressive language impairment; Visual field defect; Bowel and bladder incontinence Start: 09-03-2021 End: 09-03-2021 Telemedicine consultation with patient Judit Hector [employer] Work Phone: [facility] Start: 07-21-2021 End: 07-21-2021 Patient encounter procedure G Osvaldo Thomas MD Work Phone: Radiation Oncology Comment on above: Malignant neoplasm o f prostate (HCC) (Primary Dx) Start: 07-14-2021 End: 07-22-2021 Pre-admission assessment Armin RODRÍGUEZ [facility] Start: 06-29-2021 End: 06-29-[address] ARMIN RODRÍGUEZ . Facility: Start: 06-18-2021 Refill Judit Marcial laex PEREZFAGOT HEATER HELPER Work Phone: Neurology Comment on above: Refill Request Start: 06-03-2021 End: 06-03-2021 Patient encounter procedure NADIYA MENJIVAR [facility] Procedures Date Procedure Procedure Detail Performing Clinician Start: 04-17-[address] LASHA RODRÍGUEZ . Comment on above: Performed By: #### P SAD #### [facility] [address] [address] [address] Nitin Harrsi Start: 01-18-[address] LASHA RODRÍGUEZ . Comment on above: Performed By: #### P SAD ####[facility] [id number] [place], [place] [id number]. Nitin Harris Start: 10-09-[address] LASHA RODRÍGUEZ . Comment on above: Performed By: #### P SAD #### [facility] [address] [address] [address] 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 J STEVIE MENJIVAR Tonsillectomy NADIYA MENJIVAR Plan of Treatment Date Care Activity Detail Author Start: 04-17-2027 PROSTATE CANCER SCREENING DISCUSSION PROSTATE CANCER SCREENING DISCUSSION [facility] Start: 03-19-2026 PROSTATE CANCER SCREENING DISCUSSION PROSTATE CANCER SCREENING DISCUSSION [facility] Start: 12-11-2025 PROSTATE CANCER SCREENING DISCUSSION PROSTATE CANCER SCREENING DISCUSSION [facility] Start: 10-29-2022 Covid-19 Vaccine () Covid-19 Vaccine () [facility] Start: 10-29-2022 Influenza vaccination Influenza Vacc ine (#1) [facility] Start: 04-20-2022 Covid-19 Vaccine (7 - Mixed Product series) Covid-19 Vaccine (7 - Mixed Product series) [facility] Start: 04-13-2022 BP CONTROLLED (<130/80) BP CONTROLLE D (<130/80) [facility] Start: 02-28-2022 ADVANCE DIRECTIVE DISCUSSION ADVANCE DIRECTIVE DISCUSSION [facility] Start: 01-18-2022 End: 03-20-2022 Prostate specific Ag [Mass/volume] in Serum or Plasma PSA/PROSTSPECAG DIAG Lab Routine Malignant neoplasm of prostate (HCC) Expected: 01/18/2022, Expires: 03/20/2022 [facility] Work Phone: Comment on above: Expected: 01/18/2022 , Expires: 03/20/2022 Start: 10-29-2021 Influenza vaccination INFLUENZA (#1) [facility] Start: 02-28-2021 ADVANCE DIRECTIVE DISCUSSION ADVANCE DIRECTIVE DISCUSSION [facility] Start: 01-05-2020 DIABETES SCREEN DIABETES SCREEN [facility] Start: 01-05-2020 Diabetes Screening Diabetes Screenin g [facility] Start: 2019 Pneumococcal Vaccine : 65+ (1 - PCV) Pneumococcal Vaccine: 65+ (1 - PCV) [facility] Start: 2019 PNEUMOCOCCAL: 65+ (1 - PCV) PNEUMOCOCCAL: 65+ (1 - PCV) [facility] Start: 2019 PNEUMOVAX AGE 65 AND OVER WITH 5YR LOOKBACK (#1) PNEUMOVAX AGE 65 AND OVER WITH 5YR LOOKBACK (#1) [facility] Start: 2014 RSV Vaccine (1 - 1-d ose 60+ series) RSV Vaccine (1 - 1-dose 60+ series) [facility] Start: 01-04-2004 SHINGRIX VACCINE (1 of 2) SHINGRIX VACCINE (1 of 2) [facility] Start: 1999 COLOGUARD (FIT-DNA) COLOGUARD (FIT-D NA) [facility] Start: 1999 Colonoscopy COLONOSCOPY [facility] Start: 1999 COLORECTAL CANCER SCREENING COLORECTAL CANCER SCREENING [facility] Start: [address] COLONOGRAPHY [facility] Start: 1999 FECAL OCCULT BLOOD FECAL OCCULT BLOO D [facility] Start: 1999 Screening for malign ant neoplasm of colon [facility] Start: 1999 SIGMOIDOSCOPY SIGMOIDOSCOPY [facility] Start: 1989 Lipid 1996 panel - S gerardo or Plasma Lipid Screening [facility] Start: 1989 Lipid panel Lipid Screening [facility] Start: 1989 LIPID SCREEN LIPID SCREEN [facility] Start: 1973 Urine microalbumin profile [facility] Start: 01-04-1972 ANNUAL PCP TEAM ACCOUNTING INTERN LIZETT DISEASE VISIT ANNUAL PCP TEAM CHRONIC DISEASE VISIT [facility] Start: 01-04-1972 BP CONTROLLED (<130/80) BP CONTROLLE D (<130/80) [facility] Start: 01-04-1972 HEPATITIS C SCREENING HEPATITIS C [facility] Start: 01-04-1972 Hepatitis C screening Hepatitis C [facility] Start: 01-04-1960 PNEUMOCOCCAL: 65+ (1 - PCV) PNEUMOCOCCAL: 65+ (1 - PCV) [facility] End: 02-11-2024 EPIL EEG LONG EPIL EEG LONG NEUROLOGY Routine 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) Transient alteration of awareness 1 Occurrences starting 02/10/2023 until 02/11/2024 [facility] Work Phone: Comment on above: 1 Occurrences starti ng 02/10/2023 until 02/11/2024 End: 12-11-2023 Mri brain brain stem w/o contrast material MRI BRAIN WO IVCON Radiology Routine Transient cerebral ischemia, unspecified type 1 Occurrences starting 11/11/2022 until 12/11/2023 [facility] Work Phone: Comment on above: 1 Occurrences starti ng 11/11/2022 until 12/11/2023 End: 05-21-2023 Mri brain brain stem w/o w/contrast material MRI BRAIN WO/W IVCON Radiology Routine Visual field defect 1 Occurrences starting 04/21/2022 until 05/21/2023 [facility] Work Phone: Comment on above: 1 Occurrences starti ng 04/21/2022 until 05/21/2023 [facility] Immunizations Immunization Date Immunization Notes Care Provider [facility] 11-19-2022 influenza, high dose seasonal, preservative-free Mike Fay Other [employer] Other 12-18-2021 SARS-CoV-2 (COVID-19 ) [id number] Armin RODRÍGUEZ [facility] 12-18-2021 influenza virus vaccine, unspecified formulation Judit Hector APRN.CNP Work Phone: [facility] 12-03-2020 influenza virus vaccine, unspecified formulation Armin RODRÍGUEZ [facility] 12-03-2020 SARS-CoV-2 (COVID-19 ) mRNA [id number] vax Armin RODRÍGUEZ [facility] Comment on above: Result Comment: 2023: [id number] 10-29-2020 influenza virus vaccine, unspecified formulation Armin MARCOS [facility] 05-03-2020 COVID-19 vaccine, ag e 12+ yr (PFIZER-BIONTECH - [facility]) Judit Hector APRN.FAGOT HEATER HELPER Work Phone: [facility] Comment on above: Result Comment: 2023: TPV6 04-29-2020 COVID-19 vaccine, fu ll dose (MODERNA) Judit Hector APRN.FAGOT HEATER HELPER Work Phone: [facility] 04-12-2020 COVID-19 vaccine, ag e 12+ yr (PFIZER-BIONTECH - [facility]) Judit Hector APRN.FAGOT HEATER HELPER Work Phone: [facility] Comment on above: Result Comment: 2023: [id number] 04-01-2020 COVID-19 vaccine, fu ll dose (MODERNA) Judit Hector APRN.FAGOT HEATER HELPER Work Phone: [facility] 03-31-2020 SARS-CoV-2 (COVID-19 ) mRNA-1273 vaccine NADIYAANJANA MENJIVAR [facility] 11-21-2019 influenza virus vaccine, unspecified formulation Armin MARCOS [facility] 11-21-2019 influenza, high dose seasonal, preservative-free Judit Hector APRN.FAGOT HEATER HELPER Work Phone: [facility] 11-06-2019 influenza virus vaccine, split virus (incl. purified surface antigen) Mike Fay Other [employer] Other 12-24-2018 influenza virus vaccine, unspecified formulation Armin RODRÍGUEZ [facility] 12-24-2018 Influenza, injectabl e, Madin [place] Canine Kidney, preservative free, quadrivalent Judit Zgodinski ELECTRICAL SERVICE TECHNICIAN.FAGOT HEATER HELPER Work Phone: [facility] 12-07-2017 influenza virus vaccine, unspecified formulation Armin RODRÍGUEZ [facility] 12-07-2017 influenza, injectabl e, quadrivalent, preservative free Judit Zgodinski ELECTRICAL SERVICE TECHNICIAN.FAGOT HEATER HELPER Work Phone: [facility] 12-20-2016 influenza virus vaccine, unspecified formulation Armin RODRÍGUEZ [facility] 12-20-2016 influenza, injectabl e, quadrivalent, contains preservative Judit Zgodinski ELECTRICAL SERVICE TECHNICIAN.FAGOT HEATER HELPER Work Phone: [facility] 12-15-2016 influenza virus vaccine, unspecified formulation Armin RODRÍGUEZ [facility] 12-15-2016 influenza, injectabl e, quadrivalent, contains preservative Judit Zgodinski ELECTRICAL SERVICE TECHNICIAN.FAGOT HEATER HELPER Work Phone: [facility] 12-15-2015 influenza virus vaccine, unspecified formulation Armin RODRÍGUEZ [facility] 12-15-2015 influenza, injectabl e, quadrivalent, preservative free Judit Zgodinski ELECTRICAL SERVICE TECHNICIAN.FAGOT HEATER HELPER Work Phone: [facility] 12-16-2014 influenza virus vaccine, unspecified formulation Armin RODRÍGUEZ [facility] 12-16-2014 influenza, injectabl e, quadrivalent, preservative free Judit Zgodinski ELECTRICAL SERVICE TECHNICIAN.FAGOT HEATER HELPER Work Phone: [facility] 12-26-2012 influenza virus vaccine, unspecified formulation Armin RODRÍGUEZ [facility] 12-26-2012 influenza, seasonal, injectable Juditshayy Alexanderi ELECTRICAL SERVICE TECHNICIAN.FAGOT HEATER HELPER Work Phone: [facility] 01-05-2007 influenza, whole Armin GARCIA BULL [facility] 06-13-1995 hepatitis B vaccine, adult dosage Judit Marcialski ELECTRICAL SERVICE TECHNICIAN.FAGOT HEATER HELPER Work Phone: [facility] 02-01-1995 hepatitis B vaccine, adult dosage Judit Zdialloski ELECTRICAL SERVICE TECHNICIAN.FAGOT HEATER HELPER Work Phone: [facility] 11-22-1994 hepatitis B vaccine, adult dosage Judit Aniketski ELECTRICAL SERVICE TECHNICIAN.FAGOT HEATER HELPER Work Phone: [facility] Payers Date Payer Category Payer Medicare A[employer] MEDICARE A ETNA MEDICARE PPO [id number] 2021-Present [phone] [address] [place] [address] O [id number] 2021 Medicare AETNA MEDICARE A ETNA MEDICARE PPO [id number] 2021-Present [phone] [address] [place] [address] [facility] [id number] 1959 Medicare [id number] 1954 Unknown [id number] 1954 Unknown [id number] 1954 Unknown [id number] 1954 Unknown [id number] 1954 Unknown [id number] 1954 Unknown [id number] 1954 Unknown [id number] 1954 Unknown [id number] 1954 Unknown [id number] 1954 Unknown [id number] 1954 Unknown [id number] Social History Date Type Detail Facility Start: 09-15-2020 End: 03-04-2023 Tobacco smoking status Never smoked tobacco (finding) [facility] Start: 02-23-2019 End: 11-11-2022 Sex Assigned At Male [facility] Start: 01-04-2017 End: 11-11-2022 Tobacco use and exposure Smokeless tobacco non-user [facility] Work Phone: Start: 04-13-2021 End: 02-10-2023 Alcohol intake Ex-drinker (finding) [facility] Start: 02-23-2019 History SDOH Alcohol Frequency 2 [facility] Start: 02-23-2019 History SDOH Alcohol Std Drinks 1 [facility] Start: 07-10-2020 History SDOH Alcohol Comment 1 wine per month [facility] Start: 1955 Sex Assigned At Male [facility] Start: 07-11-2021 End: 07-21-2021 Exposure to SARS-CoV-2 (event) Not sure [facility] Start: 02-23-2019 End: 11-11-2022 History of Social function [facility] How often to you hav e a drink containing alcohol? Monthly or less [facility] How many standard drinks containing alcohol do you have on a typical day? 1 or 2 [facility] How often do you hav e 6 or more drinks on 1 occasion? Never [facility] Adult Depression Screening Assessment 2 [facility] Start: 04-13-2021 Gender identity Identifies as male gender (finding) [facility] Functional Status Date Assessment Result Facility 03-04-2023 Functional Status N/A [facility] 05-24-2022 Functional Status N/A [facility] 10-12-2021 N/A [facility] Clinical Notes 06-03-2021 to 03-04-2023 Patient InstructionsJudit Hector APRN.MURPHY - 02/10/2023 3:15 PM ESTTelephone Encounter - Stacey Cuevas RN - 02/08/2023 1:26 PM EST Note Date & Type Note Facility 03-04-2023 Hospital Discharg e instructions Patient Education 03/04/2023 12:19:01 Prostate Cancer Prostate Cancer The prostate is a small gland that produces fluid that makes up semen (seminal fluid). It is located below the bladder in men, in front of the rectum. Prostate cancer is the abnormal growth of cells in the prostate gland. What are the causes? The exact cause of this condition is not known. What increases the risk? You are more likely to develop this condition if: You are 65 years of age or older. You have a family history of prostate cancer. You have a family history of breast and ovarian cancer. You have genes that are passed from parent to child (inherited), such as BRCA1 and BRCA2. You have Lagunas syndrome. men and men of descent are diagnosed with prostate cancer at higher rates than other men. The reasons for this are not well understood and are likely due to a combination of genetic and environmental factors. What are the signs or symptoms? Symptoms of this condition include: Problems with urination. This may include: ?A weak or interrupted flow of urine. ?Trouble starting or stopping urination. ?Trouble emptying the bladder all the way. ?The need to urinate more often, especially at night. Blood in urine or semen. Persistent pain or discomfort in the lower back, lower abdomen, or hips. Trouble getting an erection. Weakness or numbness in the legs or feet. How is this diagnosed? This condition can be diagnosed with: A digital rectal exam. For this exam, a health care provider inserts a gloved finger into the rectum to feel the prostate gland. A blood test called a prostate-specific antigen (PSA) test. A procedure in which a sample of tissue is taken from the prostate and checked under a microscope (prostate biopsy). An imaging test called transrectal ultrasonography. Once the condition is diagnosed, tests will be done to determine how far the cancer has spread. This is called staging the cancer. Staging may involve imaging tests, such as a bone scan, CT scan, PET scan, or MRI. Stages of prostate cancer The stages of prostate cancer are as follows: Stage 1 (I). At this stage, the cancer is found in the prostate only. The cancer is not visible on imaging tests, and it is usually found by accident, such as during prostate surgery. Stage 2 (II). At this stage, the cancer is more advanced than it is in stage 1, but the cancer has not spread outside the prostate. Stage 3 (III). At this stage, the cancer has spread beyond the outer layer of the prostate to nearby tissues. The cancer may be found in the seminal vesicles, which are near the bladder and the prostate. Stage 4 (IV). At this stage, the cancer has spread to other parts of the body, such as the lymph nodes, bones, bladder, rectum, liver, or lungs. Prostate cancer grading Prostate cancer is also graded according to how the cancer cells look under a microscope. This is called the [place] score and the total score can range from 6 10, indicating how likely it is that the cancer will spread (metastasize) to other parts of the body. The higher the score, the greater the likelihood that the cancer will spread. Higinio 6 or lower: This indicates that the cancer cells look similar to normal prostate cells (well differentiated). Higinio 7: This indicates that the cancer cells look somewhat similar to normal prostate cells (moderately differentiated). [place] 8, 9, or 10: This indicates that the cancer cells look very different than normal prostate cells (poorly differentiated). How is this treated? Treatment for this condition depends on several factors, including the stage of the cancer, your age, personal preferences, and your overall health. Talk with your health care provider about treatment options that are recommended for you. Common treatments include: Observation for early stage prostate cancer (active surveillance). This involves having exams, blood tests, and in some cases, more biopsies. For some men, this is the only treatment needed. Surgery. Types of surgeries include: ?Open surgery (radical prostatectomy). In this surgery, a larger incision is made to remove the prostate. ?A laparoscopic radical prostatectomy. This is a surgery to remove the prostate and lymph nodes through several small incisions. It is often referred to as a minimally invasive surgery. ?A robotic radical prostatectomy. This is laparoscopic surgery to remove the prostate and lymph nodes with the help of robotic arms that are controlled by the surgeon. ?Cryoablation. This is surgery to freeze and destroy cancer cells. Radiation treatment. Types of radiation treatment include: ?External beam radiation. This type aims beams of radiation from outside the body at the prostate to destroy cancerous cells. ?Brachytherapy. This type uses radioactive needles, seeds, wires, or tubes that are implanted into the prostate gland. Like external beam radiation, brachytherapy destroys cancerous cells. An advantage is that this type of radiation limits the damage to surrounding tissue and has fewer side effects. Chemotherapy. This treatment kills cancer cells or stops them from multiplying. It kills both cancer cells and normal cells. Targeted therapy. This treatment uses medicines to kill cancer cells without damaging normal cells. Hormone treatment. This treatment involves taking medicines that act on testosterone, one of the male hormones, by: ?Stopping your body from producing testosterone. ?Blocking testosterone from reaching cancer cells. Follow these instructions at home: Lifestyle Do not use any products that contain nicotine or tobacco. These products include cigarettes, chewing tobacco, and vaping devices, such as e-cigarettes. If you need help quitting, ask your health care provider. Eat a healthy diet. To do this: ?Eat foods that are high in fiber. These include beans, whole grains, and fresh fruits and vegetables. ?Limit foods that are high in fat and sugar. These include fried or sweet foods. Treatment for prostate cancer may affect sexual function. If you have a partner, continue to have intimate moments. This may include touching, holding, hugging, and caressing your partner. Get plenty of sleep. Consider joining a support group for men who have prostate cancer. Meeting with a support group may help you learn to manage the stress of having cancer. General instructions Take unfe-bzm-lcikmxo and prescription medicines only as told by your health care provider. If you have to go to the hospital, notify your cancer specialist (oncologist). Keep all follow-up visits. This is important. Where to find more information [place] [employer]: www.cancer.org [place] [employer]: www.cancer.net [employer]: www.cancer.gov Contact a health care provider if: You have new or increasing trouble urinating. You have new or increasing blood in your urine. You have new or increasing pain in your hips, back, or chest. Get help right away if: You have weakness or numbness in your legs. You cannot control urination or your bowel movements (incontinence). You have chills or a fever. Summary The prostate is a small gland that is involved in the production of semen. It is located below a man's bladder, in front of the rectum. Prostate cancer is the abnormal growth of cells in the prostate gland. Treatment for this condition depends on the stage of the cancer, your age, personal preferences, and your overall health. Talk with your health care provider about treatment options that are recommended for you. Consider joining a support group for men who have prostate cancer. Meeting with a support group may help you learn to manage the stress of having cancer. This information is not intended to replace advice given to you by your health care provider. Make sure you discuss any questions you have with your health care provider. Document Revised: 05/13/2021 Document Reviewed: 05/13/2021 [employer] Patient Education 2022 [employer] Follow Up Care 05/24/2022 10:50:32 With:MARCOS MARIN, Armin Watkins, URL Address: [address] [place] [id number] When: Unknown [facility] 03-02-2023 Note HNO ID: [id number] Author: Joann Thomas MD Service: ? Author Type: Physician Type: Progress Notes Filed: 03/02/2023 12:45 PM Note Text: Radiation Oncology - Follow Up Note PATIENT NAME: Tammy Rowland PATIENT DIAGNOSIS: Prostate adenocarcinoma, initial PSA 7.6, biopsy [place] score 4 + 3 = 7 (grade group 3), clinical stage T1c, N0, M0, stage IIC [T1-T2, N0, M0, PSA <20, GG 3] (AJCC 8th ed.), s/p TRUS Random biopsy. Prostate cancer (C61), 2019 NCCN Risk Group: Unfavorable Intermediate Risk Group RADIATION SUMMARY: DATES OF TREATMENT: External Beam: 03/12/20 - 04/21/20 Prostate Brachytherapy: 05/22/20 AREA TREATED: Prostate and pelvis DELIVERED DOSE: Pelvis 45 Gy in 25 fractions, 3 Arcs, VMAT, 10MV with daily cbct Prostate 100 Gy, Pd103 sources, 90 sources,141.57 mCi . INTERVAL HISTORY: Patient having worsening of his dementia. Also has had some weight loss over the last 6 to 12 months. Denies chest pain shortness of breath or cough. No abdominal pain. Continues to have urinary incontinence, chronic. PSA HISTORY: PSA. (no units) Date Value 02/03/2023 0.35 11/24/2022 0.35 04/17/2022 <0.13 01/18/2022 <0.13 01/18/2022 <0.13 ALLERGIES Allergen Reactions Hay Fever [Seasonal* Unknown LORazepam (ATIVAN) 0.5 mg Take 1 tablet by mouth two times a day for 180 days. memantine (NAMENDA) 10 mg tablet Take 1 tablet by mouth two times a day. folic acid 1 mg tablet Take 1 mg by mouth once daily. donepezil (ARICEPT) 10 mg tablet Take 1 tablet by mouth once daily. trospium (SANCTURA) 20 mg tablet Take 20 mg by mouth. benazepril (LOTENSIN) 5 mg tablet Take 5 mg by mouth once daily. Omeprazole 40 mg capsule Take 40 mg by mouth once daily. aspirin, enteric coated (ASPIRIN, ENTERIC COATED) 81 mg EC tablet Take 81 mg by mouth once daily. Qzrusajw-Tmdn-Hay-Folic Acid (CENTRUM) 3,500-18-0.4 unit-mg-mg chewable tablet Take 1 tablet by mouth every other day. Taking 1 tablet every other day sertraline (ZOLOFT) 50 mg tablet Take 1 tablet by mouth once daily. REVIEW OF SYSTEMS: D/N = 4-6/2 Hematuria: none Dysuria: none Incontinence: Yes Urgency: Mild to moderate Catheter use: none Medications to aid urination: y AUA= N/A Bowel movement frequency: 1-2/day Bowel movement quality: normal Blood per rectum: none PHYSICAL EXAM: BP 132/82 Pulse (!) 57 Temp 36.3 ?C (97.3 ?F) Resp 16 Wt 82.3 kg (181 lb 7 oz) SpO2 98% BMI 26.99 kg/m? KPS: 70 General appearance: Alert and oriented. No acute distress. Abdomen: Normal abdominal exam, Abdomen soft, non-tender. No masses, organomegaly. Rectal exam def Extremities: No deformities, edema, skin discoloration, clubbing or cyanosis. Lymph Nodes: No cervical lymphadenopathy, No supraclavicular lymphadenopathy, No axillary lymphadenopathy. Skin: Skin color, texture, turgor normal, no suspicious rashes or lesions. ASSESSMENT/PLAN: Prostate adenocarcinoma, initial PSA 7.6, biopsy [place] score 4 + 3 = 7 (grade group 3), clinical stage T1c, N0, M0, stage IIC [T1-T2, N0, M0, PSA <20, GG 3] (AJCC 8th ed.) status post radiation and prostate brachytherapy. PSA remains low. No significant posttreatment related issues. He has had some weight loss which may be related to his underlying dementia. No clinical evidence of etiology, do not feel further radiographic workup warranted at this time without specific symptoms. Plan to recheck PSA in 12 months. Signed by: Joann Thomas MD cc: Mike Fay MD (DrC) [address] [place] [address] Dr. Rodríguez Portions of the above note extracted and edited from previous visit as well as active information included in the EMR. [facility] 02-10-2023 Note HNO ID: [id number] Author: Judit Hector APRN.FAGOT HEATER HELPER Service: ? Author Type: Nurse Practitioner Type: Progress Notes Filed: 02/10/2023 5:00 PM Note Text: Tammy Rowland 1955 [address] [facility] [address] February 10, 2023 [place] [facility] VIRTUAL FOLLOW-UP NOTE This visit was conducted using audio + video elements. I have communicated my name and active licensure. The patient's identity and physical location were verified at the time of this visit. Either the patient or their legal branch customer service representative has been informed of the risks and benefits of -- and alternatives to -- treatment through a remote evaluation and consents to proceed with the evaluation remotely. Accompanied by: spouse Emily Rowland is a pleasant 68 year old male seen today for a follow up visit. 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) Expressive language impairment (H53.40) Visual field defect, reported (R32, R15.9) Bowel and bladder incontinence Patient was last seen on 11/11/22, at which time: -- more issues w/ aggravation, wanting to leave the house on his own, getting agitated at spouse when she tries to stop him -- +b/b incontinence -- has gotten lost x 2 from independent facility - wandering a daily issue Previous plan: Cross titrate from escitalopram/Lexapro to sertraline/Zoloft in the following way: WEEK 1: escitalopram 10mg daily + sertraline 25mg once daily (1/2 tab) WEEK 2: escitalopram 5mg daily (1/2 tablet) + sertraline 50mg (1 tab) WEEK 3: stop escitalopram, take sertraline 100mg once daily. Remain on sertraline 100mg once daily for 4-6 weeks and then we may consider increasing this again to 150mg at that time. 2. Will communicate our request for another MRI Brain scan to [facility] radiology - and please call them in about 2 weeks to make sure they received the order and can schedule you. 3. Please meet w/ our SW Yajaira Loly to talk about how we can get you a little more help! Perhaps a caregiver to help accompany Tammy would be a good idea. Call [phone] to schedule if no one has called within 1 week Follow up in 3 months Today, Tammy and his spouse Emily returns for a routine follow up visit. Since last seen, Emily had reported increasing issues with Tammy, including significant restlessness, wandering, and disorientation/frustration They did cross titrate from Lexapro to sertraline but it was not seeming to be helping much at all. They have continued on sertraline 50mg once daily They did reach out to his PCP who then placed him on Ativan twice daily- 0.5mg It has helped a lot-- and has seemed to help calm Tammy down quite a bit. It does not seem to be oversedating him or causing excessive sleepiness. He has a lot of trouble getting dressed, putting on a pair of depends, and he does at times need help w/ going to the bathroom (every 3rd day may have bowel incontinence), and has daily urinary incontinence They remain in Independent Living but she is curious about when they may need to transition to the next level of care His food preferences have changed significantly- he no longer eats sweets and other foods that he used to enjoy Emily believes that he may not recognize what certain foods are He has lost 20 lbs in the past 2-3 months. She has tried to incorporate some Boost/Ensure shakes He did have another spell in early November -- he was sitting in his chair at home and he developed a far-away look and his breathing pattern changed and took on a slower more purposeful pattern He had a hard time walking to the car to go to the ED -- was difficult to tell why-- his balance seemed off, and his gait seemed cautious and hesitant In ED- he got IVF and then was taken for an MRI- And his disorientation resolved and they were told the MRI looked fine Review of this image taken on 12/17/22 shows an increase in generalized, pareito-occipital, and L temporal volume loss compared to MRI in 2021, with increase in bioccipital white matter hyperintensities of unclear significance No clear stroke seen, no remote blood products on T2* sequence Other interval history: Falls: negative Sleep: described as normal, feels rested upon waking Mood: better (as above) ADL's requires assistance with the following ADL's: bathing, toileting, using household appliances, taking medications, using telephone, dressing, grocery shopping, house cleaning, driving, and finances Driving?: No PAST MEDICAL HISTORY Diagnosis Date Alzheimer's dementia (HCC) Hypertension Major depressive disorder, single episode, unspecified 01/07/2020 Prostate cancer (HCC) 01/20/2021 SOCIAL HISTORY Social History Tobacco Use Smoking status: Never (more content not included)... [facility] 02-10-2023 Instructions Judit Hector APRN.MURPHY - 02/10/2023 4:58 PM EST PLAN: I will review the recent MRI and possibility of an EEG with Dr. Casiano or another covering provider 2. If Tammy does become highly agitated or aggressive, give him space, and know that you may need to call 911 for safety. 3. Continue the lorazepam (Ativan) 0.5mg twice daily and the sertraline 50mg daily for now 4. Will update Yajaira Salcido in Social work- she may want to have a virtual visit w/ you Follow up in ~3 months tentatively based on the above documented in this encounter [facility] 02-10-2023 History of Presen t illness Narrative Images from the original note were not included. Tammy Rwoland 1955 [address] [facility] [address] February 10, 2023 [facility] VIRTUAL FOLLOW-UP NOTE This visit was conducted using audio + video elements. I have communicated my name and active licensure. The patient's identity and physical location were verified at the time of this visit. Either the patient or their legal branch customer service representative has been informed of the risks and benefits of -- and alternatives to -- treatment through a remote evaluation and consents to proceed with the evaluation remotely. Accompanied by: spouse Emily TRAORE Tammy Rowland is a pleasant 68 year old male seen today for a follow up visit. 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) Expressive language impairment (H53.40) Visual field defect, reported (R32, R15.9) Bowel and bladder incontinence Patient was last seen on 11/11/22, at which time: -- more issues w/ aggravation, wanting to leave the house on his own, getting agitated at spouse when she tries to stop him -- +b/b incontinence -- has gotten lost x 2 from independent facility - wandering a daily issue Previous plan: Cross titrate from escitalopram/Lexapro to sertraline/Zoloft in the following way: WEEK 1: escitalopram 10mg daily + sertraline 25mg once daily (1/2 tab) WEEK 2: escitalopram 5mg daily (1/2 tablet) + sertraline 50mg (1 tab) WEEK 3: stop escitalopram, take sertraline 100mg once daily. Remain on sertraline 100mg once daily for 4-6 weeks and then we may consider increasing this again to 150mg at that time. 2. Will communicate our request for another MRI Brain scan to [facility] radiology - and please call them in about 2 weeks to make sure they received the order and can schedule you. 3. Please meet w/ our SW Yajaira Loly to talk about how we can get you a little more help! Perhaps a caregiver to help accompany Tammy would be a good idea. Call [phone] to schedule if no one has called within 1 week Follow up in 3 months Today, Tammy and his spouse Emily returns for a routine follow up visit. Since last seen, Emily had reported increasing issues with Tammy, including significant restlessness, wandering, and disorientation/frustration They did cross titrate from Lexapro to sertraline but it was not seeming to be helping much at all. They have continued on sertraline 50mg once daily They did reach out to his PCP who then placed him on Ativan twice daily- 0.5mg It has helped a lot-- and has seemed to help calm Tammy down quite a bit. It does not seem to be oversedating him or causing excessive sleepiness. He has a lot of trouble getting dressed, putting on a pair of depends, and he does at times need help w/ going to the bathroom (every 3rd day may have bowel incontinence), and has daily urinary incontinence They remain in Independent Living but she is curious about when they may need to transition to the next level of care His food preferences have changed significantly- he no longer eats sweets and other foods that he used to enjoy Emily believes that he may not recognize what certain foods are He has lost 20 lbs in the past 2-3 months. She has tried to incorporate some Boost/Ensure shakes He did have another spell in early November -- he was sitting in his chair at home and he developed a far-away look and his breathing pattern changed and took on a slower more purposeful pattern He had a hard time walking to the car to go to the ED -- was difficult to tell why-- his balance seemed off, and his gait seemed cautious and hesitant In ED- he got IVF and then was taken for an MRI- And his disorientation resolved and they were told the MRI looked fine Review of this image taken on 12/17/22 shows an increase in generalized, pareito-occipital, and L temporal volume loss compared to MRI in 2021, with increase in bioccipital white matter hyperintensities of unclear significance No clear stroke seen, no remote blood products on T2* sequence Other interval history: Falls: negative Sleep: described as normal, feels rested upon waking Mood: better (as above) ADL's requires assistance with the following ADL's: bathing, toileting, using household appliances, taking medications, using telephone, dressing, grocery shopping, house cleaning, driving, and finances Driving?: No PAST MEDICAL HISTORY Diagnosis Date Alzheimer's dementia (HCC) Hypertension Major depressive disorder, single episode, unspecified 01/07/2020 Prostate cancer (HCC) 01/20/2021 SOCIAL HISTORY Social History Tobacco Use Smoking status: Never Smokeless tobacco: Never Vaping Use Vaping Use: Never used Substance Use Topics Alcohol use: Not Currently Comment: 1 wine per month Drug use: Never Social History reviewed by Judit Hector APRN.CNP PATIENT-ENTERED DATA Patient-Reported 11/10/2022 09/22/2022 Where are you currently living? Home / Private residence Home / Private residence Are you using any community resources to help care for yourself? No No Has your caregiver accompanied you today? Yes Yes Did you receive help completing this questionnaire? Yes Yes If you received help, could you have completed this questionnaire on your own? No No Activities of Daily Living (ADL) No flowsheet data found. PROMIS-10 PROMIS 10 02/07/2023 11/10/2022 In general, would you say your health is: Fair - In general, would you say your quality of life is: Fair Good In general, how would you rate your physical health? Fair Good In general, how would you rate your mental health, including your mood and your ability to think? Good Fair In general, how would you rate your satisfaction with your social activities and relationships? Fair Good To what extent are you able to carry out your everyday physical activities such as walking, climbing stairs, carrying groceries, or moving a chair? Mostly Moderately In general, please rate how well you carry out your usual social activities and roles. (This includes activities at home, at work and in your community, and responsibilities as a parent, child, spouse, employee, friend, etc.) Fair Good How would you rate your pain on average? 8 0 - No Pain How would you rate your fatigue on average? Moderate Mild How often have you been bothered by emotional problems such as feeling anxious, depressed or irritable? Often Sometimes PROMIS Adult Short Form-Global Health Score (Physical) 37.4 (Fair) 47.7 (Good) PROMIS Adult Short Form-Global Health Score (Mental) 36.3 (Fair) 41.1 (Good) PHQ-9 PHQ-9 All Questions 02/07/2023 02/07/2023 Little interest or pleasure in doing things 2 2 Feeling down, depressed, or hopeless 2 2 Trouble falling or staying asleep, or sleeping too much 0 0 Feeling tired or having little energy 0 0 Poor appetite or overeating 3 3 Feeling bad about yourself - or that you are a failure or have let yourself or your family down 1 1 Trouble concentrating on things, such as reading the newspaper or watching television 3 3 Moving or speaking so slowly that other people could have noticed. Or the opposite - being so fidgety or restless that you have been moving around a lot more than usual 3 3 Thoughts that you would be better off , or of hurting yourself in some way 1 1 PHQ-9 Score 15 15 (0-4) minimal depression (5-9) mild depression (10-14) moderate depression (15-19) moderately severe depression (20-27) severe depression Full History of PHQ-9 Scores PHQ-9 Score 02/07/2023 15 02/07/2023 15 11/10/2022 12 09/22/2022 12 09/22/2022 12 04/13/2021 0 11/08/2020 10 07/10/2020 7 01/19/2019 4 01/04/2017 9 Sleep 11/10/2022 09/22/2022 What is your average total sleep time per night over the past 4 weeks? 10 Hours 10 Hours What is your average total sleep time during the day over the past 4 weeks? 1 Hours 1 Hours Have you been diagnosed with sleep apnea? No No Do you snore loudly? No No Do you often feel sleepy, tired, or fatigued during the day? Yes Yes Have you been told that you stop breathing during sleep? No No Have you been told or are you being treated for high blood pressure? Yes Yes Probability of moderate-severe sleep apnea (%) SAPS V2 64 (Recommend sleep study) 64 (Recommend sleep study) Insomnia Severity Index 11/10/2022 09/22/2022 Difficulty falling asleep 0 0 Difficulty staying asleep 0 0 Problem waking up too early 0 0 Satisfied/dissatisfied with current sleep pattern 1 1 Sleep interferes with daily functions 1 1 Sleep problems noticeable to others 0 0 Worried/distressed about current sleep problems 0 0 Score 2 2 Caregiver-Reported 11/10/2022 09/22/2022 Are you the person who cares for the patient the majority of the time? (Primary Caregiver) Yes Yes How are you related to the patient? Spouse Spouse Do you currently reside with the patient? Yes Yes Are you currently employed outside the home? No No What is your gender? Female Female Please enter your age - - Dementia Severity Rating Scale (DSRS) No flowsheet data found. OBJECTIVE Current Outpatient Medications on File Prior to Visit Medication Sig memantine (NAMENDA) 10 mg tablet Take 1 tablet by mouth two times a day. folic acid 1 mg tablet Take 1 mg by mouth once daily. sertraline (ZOLOFT) 50 mg tablet One tablet daily donepezil (ARICEPT) 10 mg tablet Take 1 tablet by mouth once daily. trospium (SANCTURA) 20 mg tablet Take 20 mg by mouth. benazepril (LOTENSIN) 5 mg tablet Take 5 mg by mouth once daily. Omeprazole 40 mg capsule Take 40 mg by mouth once daily. aspirin, enteric coated (ASPIRIN, ENTERIC COATED) 81 mg EC tablet Take 81 mg by mouth once daily. Gvaecufu-Yjfh-Rhh-Folic Acid (CENTRUM) 3,500-18-0.4 unit-mg-mg chewable tablet Take 1 tablet by mouth every other day. Taking 1 tablet every other day No current facility-administered medications on file prior to visit. Vital Signs: There were no vitals taken for this visit. VIRTUAL VISIT General Medical Exam: General: Well-nourished appearing, NAD. Awake, alert. HEENT: Normocephalic/atraumatic. Neurological Exam: Cognition: alert and cooperative MoCA: unable due to language problem (Previous score: in 2018.) Orientation: alert Appearance: normal grooming Eye contact: normal Facial expression: appropriate Psychomotor: normal Speech/Language: poverty of speech Mood: better Affect: pleasant PDW:no SI:no Self-injurious behavior:no Emotional state: calm, cooperative Thought Process: FRANCOIS Thought Content: FRANCOIS Hallucinations: none Judgment: impaired due to lack of insight Insight: poor Diagnostic Results: MRI Brain from 03/03/21 IMPRESSION: 1. Age consistent atrophy and chronic small vessel ischemic changes 2. No acute or suspicious findings 3. Mild chronic sinusitis Scan including images reviewed with patient/family. CSF Biomarkers from 2017 AB42: 443.75 T-Tau: 869.3 P-Tau: 92.3 Alzheimer Disease ASSESSMENT: (G30.0, F02.B11) 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) (primary encounter diagnosis) (F80.1) Expressive language impairment (R45.4) Irritability and anger (R41.842) Visuospatial deficit (R32, R15.9) Bowel and bladder incontinence (F32.0) Major depressive disorder, single episode, mild (HCC) (R40.4) Transient alteration of awareness PLAN: I will review the recent MRI and possibility of an EEG with Dr. Casiano or another covering provider 2. If Tammy does become highly agitated or aggressive, give him space, and know that you may need to call 911 for safety. 3. Continue the lorazepam (Ativan) 0.5mg twice daily and the sertraline 50mg daily for now 4. Will update Yajaira Salcido in Social work- she may want to have a virtual visit w/ you Follow up in ~3 months tentatively based on the above I spent a total of 40 minutes on the date of service which included [id number] patient care and counseling and educating the patient/spouse/son. Judit Hector, MSN, DIRECT MARKETING REPRESENTATIVE-C, CNRN CC: 1. Mike Fay DO, (fax) [phone] documented in this encounter [facility] 02-08-2023 Miscellaneous Notes RN called spouse, Emily back, no answer, unable to leave a message. Will try to call back at a later time today. Stacey Cuevas RN Name of caller: Emily Relationship to patient: Contact number: [phone] Chief Complaint:Patient update Reason for call: Change in condition called to state that he has lost about 20+ pounds over the last month. She states he is refusing to eat and do anything. She would like to know what she can do. Please advise. documented in this encounter [facility] 11-29-2022 Evaluation note Encounter Date Diagnosis Assessment Notes Nov, Alzheimer's disease with early onset (ICD-10 - G30.0) Nov, Dementia in other diseases classified elsewhere, moderate, with agitation (ICD-10 - F02.B11) [employer] Other 09-22-2023 Miscellaneous Notes* Telephone Encounter - Stacey Cuevas RN - 11/19/2022 10:48 AM EDT ----- Message from Judit Hector APRN.FAGOT HEATER HELPER sent at 11/19/2022 10:07 AM EDT ----- Regarding: help w/ MRI Can someone give the Radiology dept at [facility] a call at [phone] and ask them if we can please fax them an order for a Brain MRI for this patient? Then can you print my recent MRI order and fax it to them and please ask them to reach out to his spouse Emily to schedule? Thanks!! stefany 10:50 am, RN called [facility] and spoke to Shania, the fax number to fax the MRIfor the brain to them is: [phone],- will send this message to Laura to fax the order over with the message in comments for Radiology to call the spouse, Emily at [phone] to get the patient scheduled for the MRI there. Forward to Laura Cuevas, RN [facility] NoteHNO ID: [id number] Author: Judit Hector APRN.FAGOT HEATER HELPER Service: ? Author Type: Nurse Practitioner Type: Progress Notes Filed: 11/11/2022 7:34 PM Note Text: Tammy Rowland 1955 [address] [facility] [address] November 11, 2022 [place] [facility] FOLLOW-UP NOTE Accompanied by: spouse Emily SUBJECTIVE Tammy Rowland is a pleasant 67 year old male seen today for a follow up visit. Tammy Rowland is being followed for Mild Cognitive Impairment with language-variant AD.- CSF biomarker confirmed (F80.1) Expressive language impairment (H53.40) Visual field defect, reported (R32, R15.9) Bowel and bladder incontinence Patient was last seen on 04/21/22, at which time: PLAN: Try offering an Ensure or Boost shake to Tammy if he will not eat a meal- at least this is some calories that can make up for a missed meal Repeat MRI w/ contrast to ensure no major new changes in the visual pathways of the brain or visual cortex- I will call [facility] and get the order sent over Consider meeting again with our forensic social worker Yajaira Salcido at some point to talk more about resources and support Follow up in 4-6 weeks- as long as MRI is complete and we have received the image and radiology read Today, Pt and spouse returns for a routine follow up visit. Lots of little changes - appetite - food isn't important to him, medications - needs lots of encouragement to take. Pt has lost weight, his clothes hang on hiim. Pt doesn't feel hungry for meals. He only wants to eat a hamburger. They have not tried Ensure or Boost shakes. Pt is more aggravated and irritable and wants to take off on . Twice he has attempted to take a swing at spouse. This has happened when he wants to leave for a walk and spouse tried to stop him. Also when they are having a disagreement. Incontinence bowel and bladder Spouse has questions regarding what stage of the disease he is in and what to do next Recently moved into independent living with spouse Has wandered and gotten lost within the last 2 weeks from their new independent living facility. Walked about a mile from their new place. Some people saw him wandering and called the police to help. Wandering has been a daily issue. Facility has buzzers on the door to be alerted when he leaves. This spring, he met spouse at the [employer]. Tongue was hanging out of his mouth. Spouse thought it was a stroke. Went to ER - Did not show a stroke but was told it could have been a mild stroke Didn't know about getting a new MRI. They were not contacted. More suspicious of things. Had a large amount of money in his wallet. Money was missing and he was suspicious someone took it - he had put it elsewhere in the house. Other interval history: Falls: negative Sleep: described as normal, feels rested upon waking, naps during the day Mood: happy ADL's requires assistance with the following ADL's: bathing, toileting, feeding (needs prompting), using household appliances, taking medications, using telephone, dressing, grocery shopping, driving, and finances Durable POA: Yes spouse Emily Financial POA: Yes spouse Emily Driving?: No Symptoms Functional Assessment Staging (FAST) 5=Requires assistance in choosing proper clothing to wear for the day, season, or occasion, e.g., patient may wear the same clothing repeatedly, unless supervised. PAST MEDICAL HISTORY Diagnosis Date Alzheimer's dementia (HCC) Hypertension Major depressive disorder, single episode, unspecified 01/07/2020 Prostate cancer (HCC) 01/20/2021 SOCIAL HISTORY Social History Tobacco Use Smoking status: Never Smokeless tobacco: Never Vaping Use Vaping Use: Never used Substance Use Topics Alcohol use: Not Currently Comment: 1 wine per month Drug use: Never Social History reviewed by Judit Hector APRN.MURPHY PATIENT-ENTERED DATA Patient-Reported 11/10/2022 09/22/2022 Where are you currently living? Home / Private residence Home / Private residence Are you using any community resources to help care for yourself? No No Has your caregiver accompanied you today? Yes Yes Did you receive help completing this questionnaire? Yes Yes If you received help, could you have completed this questionnaire on your own? No No Activities of Daily Living (ADL) No flowsheet data found. PROMIS-10 PROMIS 10 11/10/2022 09/22/2022 In general, would you say your health is: - - In general, would you say your quality of life is: Good Good In general, how would you rate your physical health? Good Good In general, how would you rate your mental health, including your mood and your ability to think? Fair Fair In general, how would you rate your satisfaction with your social activities and relationships? Good Good To what extent are you able to carry out your everyday physical activities such as walki (more content not included)...[facility]09-14-2023 Instructions* Patient Instructions* Judit Hector APRN.CNP - 11/11/2022 4:22 PM EDT PLAN: Cross titrate from escitalopram/Lexapro to sertraline/Zoloft in the following way: WEEK 1: escitalopram 10mg daily + sertraline 25mg once daily (1/2 tab) WEEK 2: escitalopram 5mg daily (1/2 tablet) + sertraline 50mg (1 tab) WEEK 3: stop escitalopram, take sertraline 100mg once daily. Remain on sertraline 100mg once daily for 4-6 weeks and then we may consider increasing this again to 150mg at that time. 2. Will communicate our request for another MRI Brain scan to [facility] radiology - and please call them in about 2 weeks to make sure they received the order and can schedule you. 3. Please meet w/ our ABNER Salcido to talk about how we can get you a little more help! Perhaps acaregiver to help accompany Tamym would be a good idea. Call [phone] to schedule if no one has called within 1 week Follow up in 3 months [facility] History of Present illness Narrative* Judit Hector APRN.MURPHY - 11/11/2022 3:15 PM EDT Images from the original note were not included. Tammy Rowland 1955 [address] [facility] [id number] November 11, 2022 [place] [facility] FOLLOW-UP NOTE Accompanied by: spouse Emily Rowland is a pleasant 67 year old male seen today for a follow up visit. Tammy Rowland is beingfollowed for Mild Cognitive Impairment with language-variant AD.- CSF biomarker confirmed (F80.1) Expressive language impairment (H53.40) Visual field defect, reported (R32, R15.9) Bowel and bladder incontinence Patient was last seen on 04/21/22, at which time: PLAN: Try offering an Ensure or Boost shake to Tammy if he will not eat a meal- at least this is some calories that can make up for a missed meal Repeat MRI w/ contrast to ensure no major new changes in the visual pathways of the brain or visualcortex- I will call [facility] and get the order sent over Consider meeting again with our forensic social worker Yajaira Salcido at some point to talk more about resources and support Follow up in 4-6 weeks- as long as MRI is complete and we have received the image and radiology read Today, Pt and spouse returns for a routine follow up visit. Lots of little changes - appetite - food isn't important to him, medications - needs lots of encouragement to take. Pt has lost weight, his clothes hang on hiim. Pt doesn't feel hungry for meals. He only wants to eat a hamburger. They have not tried Ensure or Boost shakes. Pt is more aggravated and irritable and wants to take off on . Twice he has attempted to take aswing at spouse. This has happened when he wants to leave for a walk and spouse tried to stop him. Also when they are having a disagreement. Incontinence bowel and bladder Spouse has questions regarding what stage of the disease he is in and what to do next Recently moved into independent living with spouse Has wandered and gotten lost within the last 2 weeks from their new independent living facility. Walked about a mile from their new place. Some people saw him wandering and called the police to help.Wandering has been a daily issue. Facility has buzzers on the door to be alerted when he leaves. This spring, he met spouse at the [employer]. Tongue was hanging out of his mouth. Spouse thought it was a stroke. Went to ER - Did not show a stroke but was told it could have been a mild stroke Didn't know about getting a new MRI. They were not contacted. More suspicious of things. Had a large amount of money in his wallet. Money was missing and he was suspicious someone took it - he had put it elsewhere in the house. Other interval history: Falls: negative Sleep: described as normal, feels rested upon waking, naps during the day Mood: happy ADL's requires assistance with the following ADL's: bathing, toileting, feeding (needs prompting), using household appliances, taking medications, using telephone, dressing, grocery shopping, driving, and finances Durable POA: Yes spouse Emily Financial POA: Yes spouse Emily Driving?: No Symptoms Functional Assessment Staging (FAST) 5=Requires assistance in choosing proper clothing to wear for the day, season, or occasion, e.g., patient may wear the same clothing repeatedly, unless supervised. PAST MEDICAL HISTORY Diagnosis Date Alzheimer's dementia (HCC) Hypertension Major depressive disorder, single episode, unspecified 01/07/2020 Prostate cancer (HCC) 01/20/2021 SOCIAL HISTORY Social History Tobacco Use Smoking status: Never Smokeless tobacco: Never Vaping Use Vaping Use: Never used Substance Use Topics Alcohol use: Not Currently Comment: 1 wine per month Drug use: Never Social History reviewed by Judit Hector APRN.MURPHY PATIENT-ENTERED DATA Patient-Reported 11/10/2022 09/22/2022 Where are you currently living? Home / Private residence Home / Private residence Are you using any community resources to help care for yourself? No No Has your caregiver accompanied you today? Yes Yes Did you receive help completing this questionnaire? Yes Yes If you received help, could you have completed this questionnaire on your own? No No Activities of Daily Living (ADL) No flowsheet data found. PROMIS-10 PROMIS 10 11/10/2022 09/22/2022 In general, would you say your health is: - - In general, would you say your quality of life is: Good Good In general, how would you rate your physical health? Good Good In general, how would you rate your mental health, including your mood and your ability to think? Fair Fair In general, how would you rate your satisfaction with your social activities and relationships? Good Good To what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 continue to get exercise/activity as long as it can be done safely, reach out if needing more assistance at home Today, Tammy and his spouse Emily return for a routine follow up visit Emily reports that Tammy's ST memory is worse since last visit. He will forget what she said very quickly. He continues to have a hard time with comprehension- Emily will refer to something in the house- and he will look around and not understand or not be able to comprehend. He still has trouble with having fairly particular food preferences- and he generally only wants toeat junk food. She will make a variety of foods that he used to like, and he will not eat or- or will take 1-2 bites and will say he doesn't like it and stop eating. I asked Tammy what he would ideally want to eat for lunch on any given day, and he says (in very broken speech) that he would like to go out and get a burger . His weight is stable. Labs checked recently at [facility] showed mildly decreased H/H, and normal electrolytes andrenal function on BMP. B12 - 810 Folate mildly low at 3.5 They saw the inspection engineer recently and it seems that Tammy is slowly losing more and more of his peripheral vision, on the R side in particular. The inspection engineer is concerned about a possible stroke or tumor. Doing OK w/ bowel/bladder and managing ADLs at home for the most part- But Emily is thinking about trying to have someone come in periodically so that she can have some time to herself or to run errands. He does still go on walks in a close area while wearing Tammy wants to go on vacation again, with just he and Emily- but she has reservations about this- with which I agree. It would be quite challenging for her to manage a vacation while having to keep an eye on Tammy at all times. Other interval history: Sleep: very well per spouse. He does nap at times during the day. He tends to like to watch oldermovies. Mood: sometimes I-- I think to myself-- you idiot, and things like that, but I get out of it too Some things anger him more than they used to before- small things. ADL's requires assistance with the following ADL's: using household appliances, taking medications,using telephone, dressing, grocery shopping, house cleaning, driving and finances She has to remind him to brush his teeth or shave. He will then do these things OK on his own. Driving?: No PAST MEDICAL HISTORY Diagnosis Date Alzheimer's dementia (HCC) Hypertension Major depressive disorder, single episode, unspecified 01/07/2020 Prostate cancer (HCC) 01/20/2021 SOCIAL HISTORY Social History Tobacco Use Smoking status: Never Smokeless tobacco: Never Vaping Use Vaping Use: Never used Substance Use Topics Alcohol use: Not Currently Comment: 1 wine per month Drug use: Never Social History reviewed by Judit Hector APRN.CNP PATIENT-ENTERED DATA Patient-Reported 04/13/2021 11/08/2020 Where are you currently living? Home / Private residence Home / Private residence Are you using any community resources to help care for yourself? No No Has your caregiver accompanied you today? Yes Yes Did you receive help completing this questionnaire? Yes Yes If you received help, could you have completed this questionnaire on your own? No No Activities of Daily Living (ADL) No flowsheet data found. PROMIS-10 PROMIS 10 01/18/2022 07/20/2021 In general, would you say your health is: Very good Fair In general, would you say your quality of life is: Very good Good In general, how would you rate your physical health? Very good - In general, how would you rate your mental health, including your mood and your ability to think? Good - In general, how would you rate your satisfaction with your social activities and relationships? Very good Very good To what extent are you able to carry out your everyday physical activities such as walking, climbing stairs, carrying groceries, or moving a chair? Completely Completely In general, please rate how well you carry out your usual social activities and roles. (This includes activities at home, at work and in your community, and responsibilities as a parent, child, spouse, employee, friend, etc.) Good - How would you rate your pain on average? 0 - No Pain 3 How would you rate your fatigue on average? None Moderate How often have you been bothered by emotional problems such as feeling anxious, depressed or irritable? Never Sometimes PROMIS Adult Short Form-Global Health Score (Physical) 61.9 (Excellent) Incomplete PROMIS Adult Short Form-Global Health Score (Mental) 53.3 (Very Good) Incomplete PHQ-9 PHQ-9 All Questions 01/18/2022 01/18/2022 Little interest or pleasure in doing things 0 0 Feeling down, depressed, or hopeless 0 0 Trouble falling or staying asleep, or sleeping too much - - Feeling tired or having little energy - - Poor appetite or overeating - - Feeling bad about yourself - or that you are a failure or have let yourself or your family down - - Trouble concentrating on things, such as reading the newspaper or watching television - - Moving or speaking so slowly that other people could have noticed. Or the opposite - being so fidgety or restless that you have been moving around a lot more than usual - - Thoughts that you would be better off , or of hurting yourself in some way - - PHQ-9 Score - - (0-4) minimal depression (5-9) mild depression (10-14) moderate depression (15-19) moderately severe depression (20-27) severe depression Full History of PHQ-9 Scores PHQ-9 Score 04/13/2021 0 11/08/2020 10 07/10/2020 7 01/19/2019 4 01/04/2017 9 Sleep 04/13/2021 03/10/2021 What is your average total sleep time per night over the past 4 weeks? 10 Hours 10 Hours What is your average total sleep time during the day over the past 4 weeks? 2 Hours 2 Hours Have you been diagnosed with sleep apnea? No No Do you snore loudly? - - Do you often feel sleepy, tired, or fatigued during the day? - - Have you been told that you stop breathing during sleep? - - Have you been told or are you being treated for high blood pressure? - - Probability of moderate-severe sleep apnea (%) SAPS V2 - - Insomnia Severity Index 04/13/2021 03/10/2021 Difficulty falling asleep 0 0 Difficulty staying asleep 0 0 Problem waking up too early 0 0 Satisfied/dissatisfied with current sleep pattern 1 1 Sleep interferes with daily functions 0 0 Sleep problems noticeable to others 0 0 Worried/distressed about current sleep problems 0 0 Score 1 1 Caregiver-Reported 04/13/2021 11/08/2020 Are you the person who cares for the patient the majority of the time? (Primary Caregiver) Yes Yes How are you related to the patient? Spouse Spouse Do you currently reside with the patient? Yes Yes Are you currently employed outside the home? No No What is your gender? Female Female Please enter your age [age] Dementia Severity Rating Scale (DSRS) No flowsheet data found. OBJECTIVE Current Outpatient Medications on File Prior to Visit Medication Sig trospium (SANCTURA) 20 mg tablet Take 20 mg by mouth. memantine (NAMENDA) 10 mg tablet Take 1 tablet by mouth twice daily. oxybutynin XL (DITROPAN XL) 5 mg 24 hr tablet Take 5 mg by mouth once daily. donepezil (ARICEPT) 10 mg tablet TAKE 1 TABLET BY MOUTH EVERY DAY iv contrast (will be provided with radiology test) MRI Pelvis Inject, intravenously, once for 1 dose. No IV access, insert saline lock prior to the beginning of sedation, infusion, injection of imaging exam. Discontinue saline lock post exam. If Pt has a central line or IVAD, may access for administration according to line specific nursing protocol. Once exam is complete flush line and de-access according to line specific nursing protocol in the MR contrast administration guidelines link. (Patient not taking: Reported on 07/10/2020 ) escitalopram oxalate (LEXAPRO) 20 mg tablet Take 20 mg by mouth daily at bedtime. benazepril (LOTENSIN) 5 mg tablet Take 5 mg by mouth once daily. Omeprazole 40 mg capsule Take 40 mg by mouth once daily. aspirin, enteric coated (ASPIRIN, ENTERIC COATED) 81 mg EC tablet Take 81 mg by mouth once daily. Srgulhtm-Llzk-Gly-Folic Acid (CENTRUM) 3,500-18-0.4 unit-mg-mg chewable tablet Take 1 tablet by mouth every other day. Taking 1 tablet every other day No current facility-administered medications on file prior to visit. Vital Signs: There were no vitals taken for this visit. VIRTUAL VISIT Neurological Exam: Cognition: alert and cooperative MoCA: unable due to language problem (Previous score: in 2019.) Appearance: well-groomed, appropriate Facial Expression: normal, expressive Speech/Language: Significant language impairment Mood: see above Affect: pleasant PDW:no SI:no Self-injurious behavior:no Emotional state: calm, cooperative Thought Process: unable to assess Thought Content: unable to assess Hallucinations: none Judgment: intact Insight: fair Diagnostic Results: MRI Brain from 03/03/21 IMPRESSION: 1. Age consistent atrophy and chronic small vessel ischemic changes 2. No acute or suspicious findings 3. Mild chronic sinusitis Scan including images reviewed with patient/family. CSF Biomarkers from 2017 ASSESSMENT: (G30.0, F02.80) Early onset Alzheimer's disease without behavioral disturbance (HCC) (primary encounter diagnosis) (F80.1) Expressive language impairment (H53.40) Visual field defect, reported, possibly worsening (R32, R15.9) Bowel and bladder incontinence Local inspection engineer reporting worsening peripheral visual iraheta on testing. Given Tammy's increasing difficulty w/ object recognition and language comprehension, I do wonder about the validity of visual field testing for him If this MRI largely rules out any occipital or VF tract pathology, will likely not repeat more scans related to vision changes- as the likely issue may be worsening occipital/visual cortex atrophy and/or worsening cognitive function interfering with VF testing PLAN: Try offering an Ensure or Boost shake to Tammy if he will not eat a meal- at least this is some calories that can make up for a missed meal Repeat MRI w/ contrast to ensure no major new changes in the visual pathways of the brain or visualcortex- I will call [facility] and get the order sent over Consider meeting again with our forensic social worker Yajaira Salcido at some point to talk more about resources and support Follow up in 4-6 weeks- as long as MRI is complete and we have received the image and radiology read I spent a total of 40 minutes on the date of service which included jklf-jv-blqt patient care and counseling and educating the patient/spouse. ADDENDUM Called [facility] radiology and was asked to print MRI order and fax to them at F: [phone] with instructions to please call the patient to schedule. Order printed and message written withinstructions and given to chief green officer staff to fax Judit Hector, MSN, DIRECT MARKETING REPRESENTATIVE-C, CNRN documented in this encounterK[facility]23 Nurse Note* Hannah Renee MA - 04/21/2022 1:00 PM EST Virtual visit pre check-in completed with spouse. Name and of patient validated. Tammy Rowland is a 67 year old year old man accompanied by: spouse for today's visit. Do you have any changes or new concerns you would like to address at the visit today? No new issues or concerns. Provider notified of virtual visit intake complete. Hannah Renee MA documented in this encounterK[facility]02-21-2023 Evaluation note* Encounter Date Diagnosis Assessment Notes Treatment Notes Treatment Clinical Notes Mar, Folic acid deficiency (ICD-10 - E53.8) [facility] [employer] Other 02-06-2023 Evaluation note* Encounter Date Diagnosis Assessment Notes Treatment Notes Treatment Clinical Notes Mar, Essential hypertension (ICD-10 - I10) This patient is instructed to consume a healthy, low-fat, low-salt diet. They are also encouraged to continue exercise to achieve/maintain a normal BMI. Mar, Hyperlipidemia type II (ICD-10 - E78.01) Diet and exercise with continued statin therapy. Mar, Alzheimer's disease with early onset (ICD-10 - G30.0) Brain exercises such as cross word puzzles, reading, games. Continue Aricept. f/u Neurlogy. Mar, Marcus''s esophagus without dysplasia (ICD-10 - K22.70) Refer for EGD and biopsy. Mar, Prostate cancer (ICD-10 - C61) Mar, Recurrent major depressive disorder, in full remission (ICD-10 - F33.42) healthy diet, exercise and keep active Mar, Anemia, unspecified type (ICD-10 - D64.9) Refer for Colonoscopy. Check Fe, B12, FA levels Mar, Other urinary incontinence (ICD-10 - N39.498) [facility] [employer] Other 11-21-2022 Miscellaneous Notes* Telephone Encounter - Maritza Sanchez RN - 01/18/2022 10:38 AM EST Order faxed. Maritza Sanchez RN * Telephone Encounter - Maritza Sanchez RN - 01/18/2022 9:30 AM EST Please sign order and we will send to [facility]. Maritza Weyer, RN documented in this encounterK[facility]10-17-2022 Miscellaneous Notes* Telephone Encounter - Judit Hector APRN.CNP - 12/14/2021 4:45 PM EDT The following approved medication requests have been transmitted electronically. Requested Prescriptions Signed Prescriptions Disp Refills memantine (NAMENDA) 10 mg tablet 180 tablet 1 Sig: Take 1 tablet by mouth twice daily. Authorizing Provider: JUDIT HECTOR APRN.CNP * Telephone Encounter - Diana Roman - 12/14/2021 2:31 PM EDT 12/14 Patient phones requesting refills as follows: Pending Prescriptions: Disp Refills memantine (NAMENDA) 10 mg tablet 180 ta*1 Sig: Take 1 tablet by mouth twice daily. Please review and advise. Diana Roman documented in this encounterKet[facility]08-15-2022 Hospital Discharge instructions Patient Education 10/12/2021 15:07:33 Brachytherapy for Prostate Cancer Brachytherapy for Prostate Cancer Brachytherapy for prostate cancer is radiation treatment that is placed inside of the prostate (prostate gland). There are several types of brachytherapy: Low-dose rate (LDR) therapy. This may involve temporary implants or permanent radioactive seed or pellet implants. The radiation does not travel far from the prostate, which means that healthy, noncancerous tissues around the prostate receive only a small dose of radiation. This helps to protect those tissues from injury. This type of treatment may be followed by a course of external beam radiation. ?Temporary low-dose implants are left in the prostate for 1 7 days. The implants are needles, applicators, or thin, plastic tubes (catheters) that contain radioactive material. You will need to stay in the hospital while the implant is in place. ?Permanent low-dose implants (seeds or pellets) are injected into the prostate, and they work for up to one year after they are inserted. They are left in place and are not removed. High-dose rate (HDR) therapy. This is given through needles, applicators, or catheters that containradioactive material. The tubes are removed after treatment, and no radiation is left in the prostate. This type of treatment may be followed by a course of external beam radiation. Tell a health care provider about: Any allergies you have. All medicines you are taking, including vitamins, herbs, eye drops, creams, and sgjr-dah-fuxtxwi medicines. Any problems you or family members have had with anesthetic medicines. Any surgeries you have had. Any blood disorders you have. Any medical conditions you have. What are the risks? Generally, this is a safe procedure. However, problems may occur, including: Inflammation of the rectum. Problems getting or keeping an erection (erectile dysfunction). Trouble urinating. Diarrhea. Bleeding. Loss of bowel control. What happens before the procedure? Staying hydrated Follow instructions from your health care provider about hydration, which may include: Up to 2 hours before the procedure you may continue to drink clear liquids, such as water, clear fruit juice, black coffee, and plain tea. Eating and drinking Follow instructions from your health care provider about eating and drinking, which may include: 8 hours before the procedure stop eating heavy meals or foods such as meat, fried foods, or fatty foods. 6 hours before the procedure stop eating light meals or foods, such as toast or cereal. 6 hours before the procedure stop drinking milk or drinks that contain milk. 2 hours before the procedure stop drinking clear liquids. Medicines Ask your health care provider about: ?Changing or stopping your regular medicines. This is especially important if you are taking diabetes medicines or blood thinners. ?Taking medicines such as aspirin and ibuprofen. These medicines can thin your blood. Do not take these medicines before your procedure if your health care provider instructs you not to. You may be given antibiotic medicine to help prevent infection. General instructions Plan to have someone take you home from the hospital or clinic. If you will be going home right after the procedure, plan to have someone with you for 24 hours. You may have imaging tests done, including an ultrasound, CT scan, or MRI. You may have blood tests done. You may have a test to check the electrical signals in your heart (electrocardiogram). You may need to take medicine to clean out your bowel (bowel prep). What happens during the procedure? To lower your risk of infection: ?Your health care team will wash or sanitize their hands. ?Your skin will be washed with soap. ?Hair may be removed from the surgical area. An IV will be inserted into one of your veins. You will be given one or more of the following: ?A medicine to help you relax (sedative). ?A medicine to numb the area (local anesthetic). ?A medicine to make you fall asleep (general anesthetic). You may have a thin, plastic tube (catheter) inserted to drain your bladder. If you are receiving brachytherapy with implants: ?A needle, applicator, or catheter will be inserted into the prostate. It will be inserted through a body cavity, such as the rectum, or through the tissue between the testicles and the anus (perineum). ?An X-ray, ultrasound, MRI, or CT scan will be used to guide the catheter or applicator toward the prostate. ?Radioactive seeds, wires, or ribbons will be fed through the catheter or applicator. ?If the high-dose method is used: ?The radioactive wires or ribbons will be left in for a few minutes and then removed. ?Once the treatment is finished, the catheter or applicator will be removed. ?If the low-dose method is used, the implant will stay in place for 1 7 days. ?You will remain in the hospital while the implant is in place. ?Once the treatment is finished, the radioactive material and catheter will be removed. If you are receiving permanent, low-dose brachytherapy: ?Small, radioactive seeds or pellets will be injected into your prostate. This may be done through a catheter, needle, or applicator. ?The catheter or applicator will be removed, leaving the seeds in the prostate. The procedure may vary among health care providers and hospitals. What happens after the procedure? Your blood pressure, heart rate, breathing rate, and blood oxygen level will be monitored until themedicines you were given have worn off. Do not drive for 24 hours if you were given a sedative. Summary Brachytherapy for prostate cancer is radiation treatment placed inside of the prostate (prostate gland). There are several types of brachytherapy for prostate cancer, including low-dose temporary treatment, low-dose permanent treatment, and high-dose temporary treatment. Temporary low-dose implants are left in the prostate for 1 7 days. Permanent low-dose implants are injected into the prostate and left in place. They work for up to one year after they are inserted. Permanent high-dose therapy is given through tubes that contain radioactive material. The tubes areremoved after treatment, and no radiation is left in the prostate. This information is not intended to replace advice given to you by your health care provider. Make sure you discuss any questions you have with your health care provider. Document Released: 07/25/2006 Document Revised: 01/27/2018 Document Reviewed: 02/23/2017 [employer] - [employer] Patient Education 2020 [email or web address]. Follow Up Care 03/23/2021 13:12:44 With:MARCOS MARIN, Armin Watkins, URL Address: [facility] [address], [place] [address]- [phone] When:04/14/2022 [facility] 07-07-2022 Instructions* Patient Instructions* Judit Hector APRN.CNP - 09/03/2021 8:11 PM EDT 1. Continue the medications at current doses 2. In terms of food- try to make as many of Tammy's favorite meals as you can- this may increase thelikelihood that he'll eat them. You can try disguising more healthy things like chicken or veggie burgers in hamburger form if he is partial to hamburgers- or try adding vegetables and greens in other ways such as smoothies. We want to watch his weight to ensure it is stable as well 3. Stay hydrated 4. Keep getting exercise and walking in- as long as you're still doing this safely 5. We want you to reach out if you are needing more help at home- as there will come a time that this is necessary- and consider meeting again with Yajaira in social work to discuss that further Follow up in 3-4 months documented [facility] History of Present illness Narrative* Judit Hector APRN.CNP - 09/03/2021 5:00 PM EDT Images from the original note were not included. Tammy Rowland 1955 [address] [place] [address] September 03, 2021 [facility] TELEPHONE FOLLOW-UP NOTE This visit was conducted using audio only due to technical camera difficulties Accompanied by: spouse Emily Rowland is a pleasant 66 year old male seen today for a follow up visit. 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 Patient was last seen on 04/13/21, at which time we discussed a sudden severe MENDIOLA and vision changes that Tammy experienced and subsequent repeat brain MRI that showed no acute changes per report. Some concern for visual changes. More cognitive/speech changes reported as well, harder time answering the phone and putting certain clothing items on- and urinary incontinence (multifactorial), bowel incontinence as well. Still goes on walks by himself in calm local areas- wears Medical ID bracelet and spouse can track him. I asked them to continue donepezil and memantine at current doses, see a Neuroophthalmologist, continue to use briefs for incontinence, will personally review MRI Today, Tammy and his spouse Emily return for a routine follow up visit In the interim they report that Tammy has not been having headaches since the last visit. They have still not been able to see the Neuroophthalmologist yet but they do have an upcoming apptin about [address] Ivory. He continues to have a hard time recognizing objects. Emily asked him to get a rake from the garage and he later came back with a paint roller. He has a hard time remembering how to fasten a belt. He is having more trouble untying a shoe. He has been telling her to take the shoes laces out of his shoes. They have a son that lives about 15 mi away- daughter lives in [place]. Sometimes he recognizes his bowel and bladder urges but other times he doesn't. He goes to the local grocery store almost daily- he likes to try talking to the workers- he walks there. Recently someone came to their house and knocked on the door and Tammy was happy to see the gentleman who he thought was their son - when in reality it was an [employer] worker Emily is noting that she has to remind Tammy to eat. If he doesn't recognize th food, he won't eat. He eats hamburgers, donuts, and [employer] with no problem but other foods that they used to eat he does not really like anymore. He does like lasagna. There was a time a couple months ago that he passed out in the bathroom one day and he was taken [facility] and they found him to be completely dehydrated and he had a couple-day stay in the hospital for that. Their daughter set up a phone alarm to remind him to drink water and Emily reminds him as well- and he has been compliant w/ this. Other interval history: Sleep: described as normal, feels rested upon waking Mood: some days he's quiet and doesn't say much, and other days he has a hard time understanding me and we get frustrated ADL's requires assistance with the following ADL's: using household appliances, taking medications,using telephone, dressing, grocery shopping, house cleaning, driving and finances She has to remind him to brush his teeth or shave. He will then do these things OK on his own. Driving?: No PAST MEDICAL HISTORY Diagnosis Date Alzheimer's dementia (HCC) Hypertension Major depressive disorder, single episode, unspecified 01/07/2020 Prostate cancer (HCC) 01/20/2021 SOCIAL HISTORY Social History Tobacco Use Smoking status: Never Smoker Smokeless tobacco: Never Used Vaping Use Vaping Use: Never used Substance Use Topics Alcohol use: Not Currently Comment: 1 wine per month Drug use: Never Social History reviewed by Judit Hector APRN.CNP PATIENT-ENTERED DATA Patient-Reported 04/13/2021 11/08/2020 Where are you currently living? Home / Private residence Home / Private residence Are you using any community resources to help care for yourself? No No Has your caregiver accompanied you today? Yes Yes Did you receive help completing this questionnaire? Yes Yes If you received help, could you have completed this questionnaire on your own? No No Activities of Daily Living (ADL) No flowsheet data found. PROMIS-10 PROMIS 10 07/20/2021 11/08/2020 In general, would you say your health is: Fair Very good In general, would you say your quality of life is: Good Fair In general, how would you rate your physical health? - Very good In general, how would you rate your mental health, including your mood and your ability to think? -Fair In general, how would you rate your satisfaction with your social activities and relationships? Very good Good To what extent are you able to carry out your everyday physical activities such as walking, climbing stairs, carrying groceries, or moving a chair? Completely Completely In general, please rate how well you carry out your usual social activities and roles. (This includes activities at home, at work and in your community, and responsibilities as a parent, child, spouse, employee, friend, etc.) - Good How would you rate your pain on average? 3 0 - No Pain How would you rate your fatigue on average? Moderate Mild How often have you been bothered by emotional problems such as feeling anxious, depressed or irritable? Sometimes Sometimes PROMIS Adult Short Form-Global Health Score (Physical) Incomplete 57.7 (Very Good) PROMIS Adult Short Form-Global Health Score (Mental) Incomplete 38.8 (Fair) PHQ-9 PHQ-9 All Questions 07/20/2021 04/13/2021 Little interest or pleasure in doing things 1 0 Feeling down, depressed, or hopeless 0 0 Trouble falling or staying asleep, or sleeping too much - 0 Feeling tired or having little energy - 0 Poor appetite or overeating - 0 Feeling bad about yourself - or that you are a failure or have let yourself or your family down - 0 Trouble concentrating on things, such as reading the newspaper or watching television - 0 Moving or speaking so slowly that other people could have noticed. Or the opposite - being so fidgety or restless that you have been moving around a lot more than usual - 0 Thoughts that you would be better off , or of hurting yourself in some way - 0 PHQ-9 Score - 0 (0-4) minimal depression (5-9) mild depression (10-14) moderate depression (15-19) moderately severe depression (20-27) severe depression Full History of PHQ-9 Scores PHQ-9 Score 04/13/2021 0 11/08/2020 10 07/10/2020 7 01/19/2019 4 01/04/2017 9 Sleep 04/13/2021 03/10/2021 What is your average total sleep time per night over the past 4 weeks? 10 hours 10 hours What is your average total sleep time during the day over the past 4 weeks? 2 hours 2 hours Have you been diagnosed with sleep apnea? No No Do you snore loudly? - - Do you often feel sleepy, tired, or fatigued during the day? - - Have you been told that you stop breathing during sleep? - - Have you been told or are you being treated for high blood pressure? - - Probability of moderate-severe sleep apnea (%) SAPS V2 - - Insomnia Severity Index 04/13/2021 03/10/2021 Difficulty falling asleep 0 0 Difficulty staying asleep 0 0 Problem waking up too early 0 0 Satisfied/dissatisfied with current sleep pattern 1 1 Sleep interferes with daily functions 0 0 Sleep problems noticeable to others 0 0 Worried/distressed about current sleep problems 0 0 Score 1 1 Caregiver-Reported 04/13/2021 11/08/2020 Are you the person who cares for the patient the majority of the time? (Primary Caregiver) Yes Yes How are you related to the patient? Spouse Spouse Do you currently reside with the patient? Yes Yes Are you currently employed outside the home? No No What is your gender? Female Female Please enter your age [age] Dementia Severity Rating Scale (DSRS) No flowsheet data found. OBJECTIVE Current Outpatient Medications on File Prior to Visit Medication Sig trospium (SANCTURA) 20 mg tablet Take 20 mg by mouth. memantine (NAMENDA) 10 mg tablet Take 1 tablet by mouth twice daily. oxybutynin XL (DITROPAN XL) 5 mg 24 hr tablet Take 5 mg by mouth once daily. donepezil (ARICEPT) 10 mg tablet TAKE 1 TABLET BY MOUTH EVERY DAY iv contrast (will be provided with radiology test) MRI Pelvis Inject, intravenously, once for 1 dose. No IV access, insert saline lock prior to the beginning of sedation, infusion, injection of imaging exam. Discontinue saline lock post exam. If Pt has a central line or IVAD, may access for administration according to line specific nursing protocol. Once exam is complete flush line and de-access according to line specific nursing protocol in the MR contrast administration guidelines link. (Patient not taking: Reported on 07/10/2020 ) escitalopram oxalate (LEXAPRO) 20 mg tablet Take 20 mg by mouth daily at bedtime. benazepril (LOTENSIN) 5 mg tablet Take 5 mg by mouth once daily. Omeprazole 40 mg capsule Take 40 mg by mouth once daily. aspirin, enteric coated (ASPIRIN, ENTERIC COATED) 81 mg EC tablet Take 81 mg by mouth once daily. Gyulidlg-Htgs-Rly-Folic Acid (CENTRUM) 3,500-18-0.4 unit-mg-mg chewable tablet Take 1 tablet by mouth every other day. Taking 1 tablet every other day No current facility-administered medications on file prior to visit. Vital Signs: There were no vitals taken for this visit. TELEPHONE VISIT Neurological Exam: Cognition: alert and cooperative MoCA: unable due to language problem (Previous score: in 2019.) Speech/Language: Significant language impairment Mood: see above Affect: pleasant PDW:no SI:no Self-injurious behavior:no Emotional state: calm, cooperative Thought Process: unable to assess Thought Content: unable to assess Hallucinations: none Judgment: intact Insight: fair Diagnostic Results: MRI Brain from 03/03/21. IMPRESSION: 1. Age consistent atrophy and chronic small vessel ischemic changes 2. No acute or suspicious findings 3. Mild chronic sinusitis Scan including images reviewed with patient/family. CSF Biomarkers from 2017 ASSESSMENT: (G30.0, F02.80) Early onset Alzheimer's disease without behavioral disturbance (HCC) (primary encounter diagnosis) (F80.1) Expressive language impairment (H53.40) Visual field defect (R32, R15.9) Bowel and bladder incontinence Mr. Rowland continues to experience slow and steady decline in his ability to comprehend instructions, identify objects, and is starting to need prompting for meals and has had a change in his food preferences-- gravitates much more now towards hamburgers, fried food, and donuts, but does not seem to like many other foods he once did. He is not losing weight, but we will have to watch for this. He needs some prompting for some hygiene tasks like showering/shaving but seems to be able to complete them independently. He still walks to the local store on his own and can navigate back- and has anID bracelet and is tracked via cellphone by his spouse. He and his spouse are managing reasonably well at home still, and are not in need of more assistance at this time. They do have some support around them. PLAN: 1. Continue the medications at current doses 2. In terms of food- try to make as many of Tammy's favorite meals as you can- this may increase thelikelihood that he'll eat them. You can try disguising more healthy things like chicken or veggie burgers in hamburger form if he is partial to hamburgers- or try adding vegetables and greens in other ways such as smoothies. We want to watch his weight to ensure it is stable as well 3. Stay hydrated 4. Keep getting exercise and walking in- as long as you're still doing this safely 5. We want you to reach out if you are needing more help at home- as there will come a time that this is necessary- and consider meeting again with Yajaira in social work to discuss that further Follow up in 3-4 months I spent a total of 40 minutes on the date of service which included xmnd-zq-duua patient care and counseling and educating the patient/spouse. Judit Hector, MSN, DIRECT MARKETING REPRESENTATIVE-C, CNRN documented in this encounterK[facility]05-[facility] History of Present illness Narrative* G Osvaldo Thomas MD - 07/21/2021 1:09 PM EDT Radiation Oncology - Follow Up Note PATIENT NAME: Tammy Rowland PATIENT DIAGNOSIS: Prostate adenocarcinoma, initial PSA 7.6, biopsy [place]in[place] score 4 + 3 = 7 (grade group 3), clinical stage T1c, N0, M0, stage IIC [T1-T2, N0, M0, PSA <20, GG 3] (AJCC 8th ed.), s/p TRUS Random biopsy. Prostate cancer (C61), 2019 NCCN Risk Group: Unfavorable Intermediate Risk Group RADIATION SUMMARY: DATES OF TREATMENT: External Beam: 03/12/20 - 04/21/20 Prostate Brachytherapy: 05/22/20 AREA TREATED: Prostate and pelvis DELIVERED DOSE: Pelvis 45 Gy in 25 fractions, 3 Arcs, VMAT, 10MV with daily cbct Prostate 100 Gy, Pd103 sources, 90 sources,141.57 mCi . INTERVAL HISTORY: Patient denies any problems. notes worsening of issues with dementia/short-term memory. with patient helping with history. PSA HISTORY: PSA. (no units) Date Value 03/19/2021 <0.05 12/11/2020 <0.05 12/11/2020 <0.05 06/30/2020 <0.05 ALLERGIES Allergen Reactions Hay Fever [Seasonal* Unknown trospium (SANCTURA) 20 mg tablet Take 20 mg by mouth. memantine (NAMENDA) 10 mg tablet Take 1 tablet by mouth twice daily. oxybutynin XL (DITROPAN XL) 5 mg 24 hr tablet Take 5 mg by mouth once daily. donepezil (ARICEPT) 10 mg tablet TAKE 1 TABLET BY MOUTH EVERY DAY escitalopram oxalate (LEXAPRO) 20 mg tablet Take 20 mg by mouth daily at bedtime. benazepril (LOTENSIN) 5 mg tablet Take 5 mg by mouth once daily. Omeprazole 40 mg capsule Take 40 mg by mouth once daily. aspirin, enteric coated (ASPIRIN, ENTERIC COATED) 81 mg EC tablet Take 81 mg by mouth once daily. Ktruedwp-Dcjk-Des-Folic Acid (CENTRUM) 3,500-18-0.4 unit-mg-mg chewable tablet Take 1 tablet by mouth every other day. Taking 1 tablet every other day iv contrast (will be provided with radiology test) MRI Pelvis Inject, intravenously, once for 1 dose. No IV access, insert saline lock prior to the beginning of sedation, infusion, injection of imaging exam. Discontinue saline lock post exam. If Pt has a central line or IVAD, may access for administration according to line specific nursing protocol. Once exam is complete flush line and de-access according to line specific nursing protocol in the MR contrast administration guidelines link. REVIEW OF SYSTEMS: D/N = 4-6/2 Hematuria: none Dysuria: none Incontinence: Yes Urgency: Mild to moderate Catheter use: none Medications to aid urination: y AUA= N/A Bowel movement frequency: 1-2/day Bowel movement quality: normal Blood per rectum: none PHYSICAL EXAM: BP 123/80 Pulse (!) 59 Temp 36.4 C (97.6 F) Resp 16 Wt 95.5 kg (210 lb 9.6 oz) SpO2 97% BMI 31.33 kg/m KPS: 90 General appearance: Alert and oriented. No acute distress. Abdomen: Normal abdominal exam, Abdomen soft, non-tender. No masses, organomegaly. Rectal exam def Extremities: No deformities, edema, skin discoloration, clubbing or cyanosis. Lymph Nodes: No cervical lymphadenopathy, No supraclavicular lymphadenopathy, No axillary lymphadenopathy. Skin: Skin color, texture, turgor normal, no suspicious rashes or lesions. ASSESSMENT/PLAN: Prostate adenocarcinoma, initial PSA 7.6, biopsy [place] score 4 + 3 = 7 (grade group 3), clinical stage T1c, N0, M0, stage IIC [T1-T2, N0, M0, PSA <20, GG 3] (AJCC 8th ed.) status post radiation and prostate brachytherapy. PSA remains undetectable. No significant posttreatment related issues. Has continued close surveillance with Dr. Rodríguez including PSA evaluation. Plan to have patient back in 6 months for follow-up. Signed by: Joann Thomas MD cc: Mike Fay MD ([facility]) [address] [place] [address] Dr. Rodríguez Portions of the above note extracted and edited from previous visit as well as active information included in the EMR. documented in this encounterK[facility]04-[facility]-2022 Miscellaneous Notes* Telephone Encounter - Jewel Domínguez PA-C - 06/18/2021 11:26 AM EDT The following approved medication requests have been transmitted electronically. Signed Prescriptions Disp Refills memantine (NAMENDA) 10 mg tablet 180 tablet 1 Sig: Take 1 tablet by mouth twice daily. DAVID: No Authorizing Provider: JUDIT HECTOR Ordering User: JEWEL DOMÍNGUEZ PA-C * Telephone Encounter - Ese Church - 06/18/2021 8:54 AM EDT 06/18 Fax from [facility] pharmacy requesting refills as follows: Pending Prescriptions: Disp Refills memantine (NAMENDA) 10 mg tablet 180 tablet1 Sig: Take 1 tablet by mouth twice daily. DAVID: No Please review and advise. Ese Church documented in this encounterK[facility]04-[facility]-2022 Hospital Discharge instructions Patient Education 06/03/2021 13:14:30 Hematuria, Adult Hematuria, Adult Hematuria is blood in the urine. Blood may be visible in the urine, or it may be identified with a test. This condition can be caused by infections of the bladder, urethra, kidney, or prostate. Otherpossible causes include: Kidney stones. Cancer of the urinary tract. Too much calcium in the urine. Conditions that are passed from parent to child (inherited conditions). Exercise that requires a lot of energy. Infections can usually be treated with medicine, and a kidney stone usually will pass through your urine. If neither of these is the cause of your hematuria, more tests may be needed to identify the cause of your symptoms. It is very important to tell your health care provider about any blood in your urine, even if it ispainless or the blood stops without treatment. Blood in the urine, when it happens and then stops and then happens again, can be a symptom of a very serious condition, including cancer. There is no pain in the initial stages of many urinary cancers. Follow these instructions at home: Medicines Take knbe-ceh-lsyyboc and prescription medicines only as told by your health care provider. If you were prescribed an antibiotic medicine, take it as told by your health care provider. Do notstop taking the antibiotic even if you start to feel better. Eating and drinking Drink enough fluid to keep your urine clear or pale yellow. It is recommended that you drink 3 4 quarts (2.8 3.8 L) a day. If you have been diagnosed with an infection, it is recommended that you drink cranberry juice in addition to large amounts of water. Avoid caffeine, tea, and carbonated beverages. These tend to irritate the bladder. Avoid alcohol because it may irritate the prostate (men). General instructions If you have been diagnosed with a kidney stone, follow your health care provider's instructions about straining your urine to catch the stone. Empty your bladder often. Avoid holding urine for long periods of time. If you are female: ?After a bowel movement, wipe from front to back and use each piece of toilet paper only once. ?Empty your bladder before and after sex. Pay attention to any changes in your symptoms. Tell your health care provider about any changes or any new symptoms. It is your responsibility to get your test results. Ask your health care provider, or the department performing the test, when your results will be ready. Keep all follow-up visits as told by your health care provider. This is important. Contact a health care provider if: You develop back pain. You have a fever. You have nausea or vomiting. Your symptoms do not improve after 3 days. Your symptoms get worse. Get help right away if: You develop severe vomiting and are unable take medicine without vomiting. You develop severe pain in your back or abdomen even though you are taking medicine. You pass a large amount of blood in your urine. You pass blood clots in your urine. You feel very weak or like you might faint. You faint. Summary Hematuria is blood in the urine. It has many possible causes. It is very important that you tell your health care provider about any blood in your urine, even ifit is painless or the blood stops without treatment. Take heil-dtv-ucdslwt and prescription medicines only as told by your health care provider. Drink enough fluid to keep your urine clear or pale yellow. This information is not intended to replace advice given to you by your health care provider. Make sure you discuss any questions you have with your health care provider. Document Released: 02/14/2006 Document Revised: 07/11/2019 Document Reviewed: 03/19/2017 Elsevier Patient Education 2020 [employer] Follow Up Care 05/26/2021 13:13:04 With:NADIYA MENJIVAR PA-C, URL Address: [address] [place] [address] When: Unknown [facility] evaluation + Plan note Future Appointments Appointment Date:10/12/2021 01:45:00 PM Scheduled Provider:Armin RODRÍGUEZ MD Location:[facility] Appointment Type:URO Office Visit Diagnostic Tests Pending * Urine Cytology ([facility]) 06/03/21 [facility] evaluation + Plan note Future Appointments Appointment Date:10/12/2021 01:45:00 PM Scheduled Provider:Armin RODRÍGUEZ MD Location:[facility] Appointment [facility] Future Appointments Appointment Date:04/19/2022 12:45:00 PM Scheduled Provider:Armin RODRÍGUEZ MD [facility] Type:[facility]O Office Visit Diagnostic Tests Pending * PSA Total 10/12/21 [facility] evaluation + Plan note Future Appointments Appointment Date:11/26/2022 11:00:00 AM Scheduled Provider:Armin RODRÍGUEZ MD Location:[facility] Appointment Type:URO Office Visit Diagnostic Tests Pending * PSA Total 05/24/22 [facility] evaluation + Plan note Future Appointments Appointment Date:09/05/2023 10:45:00 AM Scheduled Provider:Armin RODRÍGUEZ MD Location:[facility] Appointment Type:URO Office Visit Diagnostic Tests Pending * PSA Total 04/29/23 * PSA Total 07/30/23 [facility] evaluation note* Diagnosis Early onset Alzheimer's disease without behavioral disturbance (HCC) documented in this encounter [facility] note* Diagnosis Malignant neoplasm of prostate (HCC)- Primary Malignant neoplasm of prostate documented in this encounter [facility] note* Diagnosis Early onset Alzheimer's disease without behavioral disturbance (HCC)- Primary Expressive language impairment Expressive language disorder Visual field defect Visual field defect, unspecified Bowel and bladder incontinence Unspecified urinary incontinence documented in this encounter [facility] note* Diagnosis Early onset Alzheimer's disease without behavioral disturbance (HCC) [facility] Diagnosis Malignant neoplasm of prostate (HCC)- Primary Malignant neoplasm of prostate documented in this encounter [facility] note* Diagnosis Early onset Alzheimer's disease without behavioral disturbance (HCC)- Primary Expressive language impairment Expressive language disorder Visual field defect Visual field defect, unspecified Bowel and bladder incontinence Unspecified urinary incontinence Major depressive disorder, single episode, mild (HCC) Major depressive disorder, single episode, mild documented in this encounter [facility] [employer] Other [facility] note* Diagnosis MCI (mild cognitive impairment) Mild cognitive impairment, so stated documented in this encounter [facility] note* Diagnosis Early onset Alzheimer's disease without behavioral disturbance (HCC)- Primary Expressive language impairment Expressive language disorder Visual field defect Visual field defect, unspecified Bowel and bladder incontinence Unspecified urinary incontinence Irritability and anger Irritability Transient cerebral ischemia, unspecified type MCI (mild cognitive impairment) Mild cognitive impairment, so stated documented in this encounter [facility] note* Diagnosis 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)- Primary Expressive language impairment Expressive language disorder Irritability and anger Irritability Visuospatial deficit Bowel and bladder incontinence Unspecified urinary incontinence Major depressive disorder, single episode, mild (HCC) Major depressive disorder, single episode, mild Transient alteration of awareness documented in this encounter [facility] Narrative - Reported* Type Description Date Medical History 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 Medical History Occipital headache Medical History Arthritis of shoulder region, le ft Medical History Hearing loss of right ear due to cerumen impaction Medical History Hematuria, gross Medical History Benign prostatic hyp erplasia with lower urinary tract symptoms Medical History Gastroesophageal ref lux disease with esophagitis without hemorrhage Medical History Chest pain, mid sternal Medical History Alzheimer's disease with early o nset Medical History Hyperlipidemia type II Medical History H/O stroke without residual defi cits Medical History Acute seasonal allergic rhinitis , unspecified trigger Medical History Depression screening Medical History Essential hypertension Medical History Prostate cancer Medical History Screening PSA (prostate specific antigen) Medical History Contusion of left thigh, initial encounter Medical History Contusion of right thigh, initia l encounter Surgical History COLONOSCOPY / EGD 2013 Surgical History KNEE ARTHROSCOPY 2016 Surgical History Ultrasound-Prostate 2020 Surgical History CYSTOSCOPY 2021 Hospitalization History SEE SURGICAL HX [place] [facility] Other History general Narrative - Reported* Type Description Date Medical History 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 Medical History Occipital headache Medical History Arthritis of shoulder region, le ft Medical History Hearing loss of right ear due to cerumen impaction Medical History Hematuria, gross Medical History Benign prostatic hyp erplasia with lower urinary tract symptoms Medical History Gastroesophageal ref lux disease with esophagitis without hemorrhage Medical History Chest pain, mid sternal Medical History Alzheimer's disease with early o nset Medical History Hyperlipidemia type II Medical History H/O stroke without residual defi cits Medical History Acute seasonal allergic rhinitis , unspecified trigger Medical History Depression screening Medical History Essential hypertension Medical History Prostate cancer Medical History Screening PSA (prostate specific antigen) Medical History Contusion of left thigh, initial encounter Medical History Contusion of right thigh, initia l encounter Surgical History COLONOSCOPY / EGD 2013 Surgical History KNEE ARTHROSCOPY 2016 Surgical History Ultrasound-Prostate 2020 Surgical History CYSTOSCOPY 2021 Surgical History Colonoscopy 05/2022 Surgical History EGD w/ bx [id number] Hospitalization History SEE SURGICAL HX [employer] Other Hospital course Narrative No data available for this section [facility] Hospital Discharge instructions No data available for this section [facility] No data available for this section [facility] reason for referral (narrative)* Outpatient Procedure (Routine) - Pending Review Specialty Diagnoses / Procedures Referred By Bijan najera Referred To Contact NEUROLOGICAL [place] Diagnoses 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) Transient alteration of awareness Procedures EPIL EEG LONG EEG EXTENDED MONITORING 61-119 MINUTES ELECTROENCEPHALOGRAM REC COMA/SLEEP ONLY Judit Hector APRN.CNP [address] [place] [address] [facility] [address] [place] [id number] Referral ID Status Reason Start Date Expiration Date Visits Requested Visits Authorized [id number] Pending Review Auto-Generat ed Referral 3 02/11/2024 1 1 [facility] Reason for Referral Specialty Diagnoses / Procedures Referred By Contac t Referred To Contact MR IMAGING Diagnoses Transient cerebral ischemia, unspecified type Procedures MRI BRAIN WO IVCON MRI BRAIN BRAIN STEM W/O CONTRAST MATERIAL Judit Hector APRN.MURPHY [address] [id number] [facility] [place] [id number] Referral ID Status Reason Start Date Expiration Date Visits Requested Visits Authorized [id number] Pending Review Auto-Generat ed Referral 11/11/2022 12/11/2023 1 1 Specialty Diagnoses / Procedures Referred By Contac t Referred To Contact MR IMAGING Diagnoses Visual field defect Procedures MRI BRAIN WO/W IVCON MRI BRAIN BRAIN STEM W/O W/CONTRAST MATERIAL Judit Hector APRN.[employer] [address] [id number] [facility] Referral ID Status Reason Start Date Expiration Date Visits Requested Visits Authorized [id number] Pending Review Auto-Generat ed Referral 04/21/2022 05/21/2023 1 1 Summary Purpose Family History No Family History Records FoundNo Family History Records Found No data available for this section No Family History Records Found Advance Directives No Advanced Directives Records FoundNo Advanced Directives Records FoundNo Advanced Directives Records Found Additional Source Comments Source Comments (unrecognize d section and content) In the event this informatio n is protected by the Federal Confidentiality of Alcohol and Drug Abuse Patient Records regulations: The Federal rules restrict any use of the information to criminally investigate or prosecute any alcohol or drug abuse patient.[facility] the event this information is protected by the Federal Confidentiality of Alcohol and Drug Abuse Patient Records regulations: The Federal rules restrict any use of the information to criminally investigate or prosecute any alcohol or drug abuse patient.[facility] the event this information is protected by the Federal Confidentiality of Alcohol and Drug Abuse Patient Records regulations: The Federal rules restrict any use of the information to criminally investigate or prosecute any alcohol or drug abuse patient.[facility] the event this information is protected by the Federal Confidentiality of Alcohol and Drug Abuse Patient Records regulations: The Federal rules restrict any use of the information to criminally investigate or prosecute any alcohol or drug abuse patient.[facility] the event this information is protected by the Federal Confidentiality of Alcohol and Drug Abuse Patient Records regulations: The Federal rules restrict any use of the information to criminally investigate or prosecute any alcohol or drug abuse patient.[facility] the event this information is protected by the Federal Confidentiality of Alcohol and Drug Abuse Patient Records regulations: The Federal rules restrict any use of the information to criminally investigate or prosecute any alcohol or drug abuse patient.[facility] the event this information is protected by the Federal Confidentiality of Alcohol and Drug Abuse Patient Records regulations: The Federal rules restrict any use of the information to criminally investigate or prosecute any alcohol or drug abuse patient.[facility] the event this information is protected by the Federal Confidentiality of Alcohol and Drug Abuse Patient Records regulations: The Federal rules restrict any use of the information to criminally investigate or prosecute any alcohol or drug abuse patient.[facility] the event this information is protected by the Federal Confidentiality of Alcohol and Drug Abuse Patient Records regulations: The Federal rules restrict any use of the information to criminally investigate or prosecute any alcohol or drug abuse patient.[facility] the event this information is protected by the Federal Confidentiality of Alcohol and Drug Abuse Patient Records regulations: The Federal rules restrict any use of the information to criminally investigate or prosecute any alcohol or drug abuse patient.[facility] the event this information is protected by the Federal Confidentiality of Alcohol and Drug Abuse Patient Records regulations: The Federal rules restrict any use of the information to criminally investigate or prosecute any alcohol or drug abuse patient.[facility] the event this information is protected by the Federal Confidentiality of Alcohol and Drug Abuse Patient Records regulations: The Federal rules restrict any use of the information to criminally investigate or prosecute any alcohol or drug abuse patient.[facility] Reason for Visit (unrecogniz ed section and content) Reason Onset Date Comments Refill Request 06/18/2021 Reason Comments Prostate Cancer Specialty Diagnoses / Procedures Referred By Bijan najera Referred To Contact Radiation Oncology / RADIATION ONCOLOGY Diagnoses Malignant neoplasm of prostate Volume Study Procedures SPECIAL RADIATION TREATMENT SET RAD FIELD THREE DIMENSIONAL THERAP RAD TREATMENT PLANNING; COMPLEX THERAPEUTIC RAD SIMULAT-AIDED FLD SETTING,COMPLX TX DEVICES DESIGN/CONSTR COMPLEX BASIC RAD DOSIMETRY CALCULATION ECHOGRAPHY, TRANSRECTAL; PROSTATE V SUPERVISION HANDLING LOADING OF RADIATION SOURCE SPECIAL RADIATION TREATMENT ECHOGRAPHY, TRANSRECTAL; PROSTATE V THERAP RAD TREATMENT PLANNING; COMPLEX VOLUME STUDY Joann Thomas MD [address] [place] [address] [place] [address] Joann Thomas MD [address] [place] [address] [place] [address] Referral ID Status Reason Start Date Expiration Date Visits Re quested Visits Authorized [id number] Closed 04/07/2020 02/27/2021 99 99 Reason Comments Follow Up Reason Onset Date Comments Refill Request 12/14/2021 Reason Comments Lab Orders Reason Comments Follow Up Reason Onset Date Comments Refill Request 06/17/2022 Reason Onset Date Comments Refill Request 07/05/2022 Reason Comments Established Patient Reason Comments Behavioral Health Clinician - Other Reason Comments Patient Update Change in condition Care Teams (unrecognized sec tion and content) Skoog Operator Relationship Specialty Start Date End Date Mike Fay DO PCP - General Internal Medicine 08/26/16 Skoog Operator Relationship Specialty Start Date End Date Mike Fay DO PCP - General Internal Medicine 08/26/16 Skoog Operator Relationship Specialty Start Date End Date Mike Fay DO PCP - General Internal Medicine 08/26/16 Skoog Operator Relationship Specialty Start Date End Date Mike Fay DO PCP - General Internal Medicine 08/26/16 Skoog Operator Relationship Specialty Start Date End Date Mike Fay DO PCP - General Internal Medicine 08/26/16 Skoog Operator Relationship Specialty Start Date End Date Mike Fay DO PCP - General Internal Medicine 08/26/16 Skoog Operator Relationship Specialty Start Date End Date Mike Fay DO PCP - General Internal Medicine 08/26/16 Skoog Operator Relationship Specialty Start Date End Date Mike Fay DO PCP - General Internal Medicine 08/26/16 Skoog Operator Relationship Specialty Start Date End Date Mike Fay DO PCP - General Internal Medicine 08/26/16 (unrecognized sect ion and content) No Status Records FoundNo Status Records FoundNo Status Records Found INFORMATION SOURCE (unrecogn ized section and content) DATE CREATED AUTHOR 06/25/2022 [facility] DATE CREATED AUTHOR AUTHOR'S ORGANIZ ATION 03/03/2023 [facility] DATE CREATED AUTHOR AUTHOR'S ORGANIZ ATION 03/05/2023 [facility] FOR RECORDS PERTAINING TO PATIENTS WHO ARE OR HAVE BEEN ENROLLED IN A CHEMICAL DEPENDENCY/SUBSTANCEABUSE PROGRAM, SOME INFORMATION MAY BE OMITTED. This clinical summary was aggregated from multiple sources. Caution should be exercised in using it in the provision of clinical care. This summary normalizes information from multiple sources, and as a consequence, information in this document may materially change the coding, format and clinical context of patient data. In addition, data may be omitted in some cases. CLINICAL DECISIONS SHOULD BE BASED ON THE PRIMARY CLINICAL RECORDS. [facility]. provides no warranty or guarantee of the accuracy or completeness of information in this document.
--- NOTE | 2023-04-02 07:12 | ECG_ITS ---
[facility] Test Date: 2023-04-02 Pat Name: TAMMY CORTEZ Department: Room: - Gender: Male Post Anesthesia Care Unit Nurse: : 1955 Requested By: BECKA FAY Order Number: [id number] Reading MD: BECKA FAY Measurements Intervals [place] Rate: 59 P: -30 MS: 164 QRS: -33 QRSD: 94 T: 45 QT: 434 QTc: 433 Interpretive Statements 1100 Sinus rhythm 7200 Abnormal left axis deviation, LAFB 8102 Low QRS voltage in chest leads 9130 borderline ECG Electronically Signed On 04-03-2023 7:18:43 EST by BECKA FAY
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
--- NOTE | 2023-04-02 07:13 | XR_ITS ---
The [address] [address] Patient Name: TAMMY CORTEZ MRN: [id number] date: 1955 Sex: M Assigned Patient Location: ED.MAIN Current Patient Location: ER Accession/Order Number: [id number] Exam Date: 04/02/2023 07:40 Report Date: 04/02/2023 08:15 At the request of: KYLE BLACK Procedure: XR chest 1V EXAM: XR chest 1V INDICATION: psych clearance. COMPARISON: Chest radiograph 12/17/2022 TECHNIQUE: Single frontal view of the chest FINDINGS: Normal cardiomediastinal contours. No acute infiltrative process. No pleural effusion or pneumothorax. No acute osseous abnormality. XR/XR chest 1V IMPRESSION: No acute cardiopulmonary process. Electronically authenticated by: VERO HOBSON Date: 04/02/2023 08:15
--- NOTE | 2023-04-02 07:13 | CT_ITS ---
The [address] [address] Patient Name: TAMMY CORTEZ MRN: [id number] date: 1955 Sex: M Assigned Patient Location: ED.MAIN Current Patient Location: Accession/Order Number: [id number] Exam Date: 04/02/2023 07:40 Report Date: 04/02/2023 08:08 At the request of: KYLE BLACK Procedure: CT head/brain wo con EXAM: CT head/brain wo con HISTORY: altered mental status, history of dementia COMPARISON: CTA head 12/17/2022. TECHNIQUE: Axial noncontrast CT imaging of the head was performed with coronal and sagittal reformats. This CT exam was performed using one or more of the following dose reduction techniques: Automated exposure control, adjustment of the MA and/or kV according to patient size, or use of iterative reconstruction technique. FINDINGS: Calvarium/skull base: No evidence of acute fracture or destructive lesion. Mastoids and middle ears demonstrate no substantial mucosal disease. Paranasal sinuses: No air fluid levels. Brain: No acute intracranial hemorrhage. No acute large vascular territory infarct. Age advanced at least moderate parenchymal volume loss. Degree parenchymal volume loss is more prominent involving the hippocampi and parietal lobes. Mild periventricular white matter hypoattenuation. No mass lesion or mass effect. No hydrocephalus. CT/CT head/brain wo con IMPRESSION: 1. No acute intracranial process. 2. Significant age advanced parenchymal volume loss more prominent involving the hippocampi and parietal lobes. While nonspecific this pattern has been described in the setting of Alzheimer's. Electronically authenticated by: BECKY SALOMON Date: 04/02/2023 08:08
[2023-04-02 07:36] LABS: Basophils Percent Auto 0.6 % (0.2-2.0); Eosinophils Absolute Auto 0.1 10^3/uL (0.0-0.7); Eosinophils Percent Auto 2.2 % (0.9-7.0); Hematocrit 41.3 % (42.0-54.0); Hemoglobin 13.8 g/dL (14.0-18.0); Immature Granulocytes Abs Auto 0.01 10^3/uL (0.00-0.03); Immature Granulocytes Pct Auto 0.2 % (0.0-0.5); Lymphocytes Absolute Auto 0.9 10^3/uL (1.2-3.8); Lymphocytes Percent Auto 18.3 % (20.5-60.0); Mean Corpuscular HGB Conc 33.4 g/dL (29.9-35.2); Mean Corpuscular Hemoglobin 29.2 pg (25.9-34.0); Mean Corpuscular Volume 87.5 fL (80.0-94.0); Monocytes Absolute Auto 0.3 10^3/uL (0.3-0.8); Monocytes Percent Auto 7.3 % (1.7-12.0); Neutrophils Absolute Auto 3.3 10^3/uL (1.4-6.5); Neutrophils Percent Auto 71.4 % (43.0-75.0); Platelet Count 200 10^3/uL (150-450); Red Blood Count 4.72 10^6/uL (4.70-6.10); Red Cell Distribution Width 13.2 % (11.0-15.0); White Blood Count 4.6 10^3/uL (4.0-11.0)
[2023-04-02 07:40] LABS: Anion Gap 10.6; BUN Creatinine Ratio 11.1; Calcium 8.9 mg/dL (8.5-10.1); Carbon Dioxide 27.4 mmol/L (21.0-32.0); Chloride 104 mmol/L (98-107); Estimated GFR (African America >60 (>=60); Estimated GFR (Non-African Ame >60 (>=60); Glucose 97 mg/dL (74-106); Sodium 139 mmol/L (136-145)
[2023-04-02 07:48] LABS: SARS-CoV-2 Ag NEGATIVE (NEGATIVE)
[2023-04-02 08:23] LABS: Bilirubin Urine NEGATIVE (NEGATIVE); Blood Urine LARGE (NEGATIVE); Clarity Urine CLEAR (CLEAR); Color Urine DK. ORANGE (YELLOW); Glucose Urine UA NEGATIVE (NEGATIVE); Ketones Urine TRACE mg/dL (NEGATIVE); Leukocyte Esterase Urine NEGATIVE (NEGATIVE); Nitrite Urine NEGATIVE (NEGATIVE); Protein Urine TRACE mg/dL (NEG/TRACE); pH Urine 6.5 (5.0-9.0)
[2023-04-02 08:31] LABS: Amphetamine Screen Urine NEGATIVE (NEGATIVE); Barbiturates Screen Urine NEGATIVE (NEGATIVE); Benzodiazepines Screen Urine POSITIVE (NEGATIVE); Buprenorphine Screen Urine NEGATIVE (NEGATIVE); Cannabinoid Screen Urine NEGATIVE (NEGATIVE); Cocaine Screen Urine NEGATIVE (NEGATIVE); Methadone Screen Urine NEGATIVE (NEGATIVE); Methamphetamines Screen Urine NEGATIVE (NEGATIVE); Opiate Screen Urine NEGATIVE (NEGATIVE); Oxycodone Screen Urine NEGATIVE (NEGATIVE); Phencyclidine Screen Urine NEGATIVE (NEGATIVE); Tricyclic Antidepressant Urine NEGATIVE (NEGATIVE)
[2023-04-02 08:35] LABS: RBC Urine 50-75 #/HPF (0-2); WBC Urine 0-2 #/HPF (NONE SEEN)
[2023-04-02 08:36] LABS: Bacteria Urine TRACE #/HPF (NONE SEEN); Cast Seen? NONE SEEN #/LPF (NONE SEEN); Crystals Seen? None Seen #/HPF (None Seen); Mucus Urine SMALL (NONE SEEN); Squamous Epithelial Cell Urine RARE #/LPF (NONE/RARE)
[2023-04-02 09:22] LABS: Acetaminophen <2.0 ug/mL (10.0-30.0); Ethanol <3 mg/dL; Salicylate <2.8 mg/dL (<=19.9)
[2023-04-02] MEDS: POTASSIUM BICARBONATE/CIT 25 MEQ TABLET EFF 50 MEQ PO (09:25)
== END 2023-04-02 15:23 | disposition short-term general hospital (02) ==
PROVIDERS: Emergency Provider Emergency Medicine; PCP Internal Medicine
DX: F03.90 Unspecified dementia, unspecified severity, without behavioral disturbance, psychotic disturbance, mood disturbance, and anxiety (principal); Z79.899 Other long term (current) drug therapy; Z87.891 Personal history of nicotine dependence; Z20.822 Contact with and (suspected) exposure to COVID-19
CPT/HCPCS: 36415; 70450; 71045; 80048; 80179; 80307; 80320; 80329; 81001; 85025; 87811; 93005; 99285